=== PATIENT | female | born 1945 | race Caucasian/White ===

== ENCOUNTER 2021-03-23 13:32 | Inpatient (IN) | payer MEDICARE ==
--- NOTE | 2021-03-23 14:45 | ED ---
Recheck HPI - General Source: patient, RN notes reviewed Mode of arrival: EMS Limitations: no limitations <Felipe Dawkins - Last Filed: 03/23/21 14:25> <Batool Gaspar - Last Filed: 04/07/21 13:26> - General Chief Complaint: Recheck/Abnormal Lab/Rx Stated Complaint: AICD fired Time Seen by Provider: 03/23/21 14:19 - History of Present Illness Initial Comments: Patient is a 75-year-old female presenting to the ED for defibrillator discharge. Patient was sitting when defibrillator discharge without warning. Patient reports to figure discharge for several times just before 1:00 today. She denies feeling any chest pain shortness of breath dizziness or general discomfort before incident. He should states that pacemaker was placed 7 years prior and is followed by Dr. Jaquez currently. Patient states that pacemaker didn't feel there were placed because of prior DE. Patient has history of stent placement, CAD. Patient states that has limited heart function at this time last echo showing 20% EF. (Felipe Dawkins) - Related Data Home Medications Medication Instructions Recorded Confirmed Allopurinol [Zyloprim] 100 mg PO DAILY 03/23/21 03/23/21 Aspirin EC [Ecotrin Low Dose] 81 mg PO DAILY 03/23/21 03/23/21 Atorvastatin [Lipitor] 80 mg PO HS 03/23/21 03/23/21 HYDROcodone/APAP 5-325MG [[place] 1 tab PO Q4HR PRN 03/23/21 03/23/21 5-325] Losartan Potassium [Cozaar] 25 mg PO HS 03/23/21 03/23/21 Mexiletine [Mexitil] 150 mg PO BID 03/23/21 03/23/21 Omeprazole 40 mg PO DAILY 03/23/21 03/23/21 Ondansetron Odt [Zofran ODT] 4 mg PO Q8H PRN 03/23/21 03/23/21 Spironolactone [Aldactone] 25 mg PO DAILY 03/23/21 03/23/21 oxyCODONE HCL [oxyCODONE HCL (IR)] 10 mg PO Q6H 03/23/21 03/23/21 Previous Rx's Medication Instructions Recorded Metoprolol Succinate (ER) [Toprol 100 mg PO DAILY 30 Days #30 tablet 03/25/21 XL] Metoprolol Succinate [Toprol XL] 100 mg PO DAILY 30 Days #30 tab 03/25/21 Allergies Allergy/AdvReac Type Severity Reaction Status Date / Time No Known Allergies Allergy Verified 03/23/21 16:08 Review of Systems ROS Other: All systems not noted in ROS Statement are negative. <SandrakarynFelipe Sylvester - Last Filed: 03/23/21 14:25> ROS Other: All systems not noted in ROS Statement are negative. <Batool Gaspar - Last Filed: 04/07/21 13:26> ROS Statement: Those systems with pertinent positive or pertinent negative responses have been documented in the HPI. Past Medical History Past Medical History: Hyperlipidemia, Myocardial Infarction ([place]) History of Any Multi-Drug Resistant Organisms: None Reported Past Surgical History: Pacemaker Additional Past Surgical History / Comment(s): pacemaker/ defibrillator Past Psychological History: No Psychological Hx Reported Smoking Status: Never smoker Past Alcohol Use History: Daily Past Drug Use History: None Reported <Felipe Dawkins Nga - Last Filed: 03/23/21 14:25> General Exam Limitations: no limitations <JuanchoFelipe Sylvester - Last Filed: 03/23/21 14:25> General appearance: alert, in no apparent distress Head exam: Present: atraumatic, normocephalic, normal inspection Eye exam: Present: normal appearance, PERRL, EOMI. Absent: scleral icterus, conjunctival injection, periorbital swelling ENT exam: Present: normal exam, mucous membranes moist Neck exam: Present: normal inspection. Absent: tenderness, meningismus, lymphadenopathy Respiratory exam: Present: normal lung sounds bilaterally. Absent: respiratory distress, wheezes, rales, rhonchi, stridor Cardiovascular Exam: Present: regular rate, normal rhythm, normal heart sounds. Absent: systolic murmur, diastolic murmur, rubs, gallop, clicks GI/Abdominal exam: Present: soft, normal bowel sounds. Absent: distended, tenderness, guarding, rebound, rigid Extremities exam: Present: normal inspection, full ROM, normal capillary refill. Absent: tenderness, pedal edema, joint swelling, calf tenderness Back exam: Present: normal inspection Neurological exam: Present: alert, oriented X3, CN II-XII intact Psychiatric exam: Present: normal affect, normal mood Skin exam: Present: warm, dry, intact, normal color. Absent: rash <Batool Gaspar - Last Filed: 04/07/21 13:26> Course Vital Signs 03/23/21 03/23/21 03/23/21 13:53 15:25 16:14 Temperature 98.4 F Pulse Rate 98 90 106 H Respiratory 16 18 16 Rate Blood Pressure 138/93 129/89 136/86 O2 Sat by Pulse 94 L 95 95 Oximetry 03/23/21 03/23/21 03/23/21 17:17 20:27 21:30 Temperature 98.4 F Pulse Rate 94 87 82 Respiratory 18 16 18 Rate Blood Pressure 142/84 115/72 112/57 O2 Sat by Pulse 95 96 92 L Oximetry 03/24/21 03:00 Temperature 97.7 F Pulse Rate 73 Respiratory 16 Rate Blood Pressure 126/79 O2 Sat by Pulse 98 Oximetry Medical Decision Making - Lab Data Result diagrams: 03/24/21 08:16 03/24/21 08:16 <Batool Gaspar - Last Filed: 04/07/21 13:26> - Medical Decision Making Patient was signed out to me by Felipe. Patient presents emergency department after her defibrillator went off on her 4 times. Reviewed the patient's laboratory studies. Magnesium is low at 1.6. I did give the patient 1 g. Chest x-ray demonstrates no acute process. Patient's device is still to be interrogated. I went over the patient's medication list with her. She states she's been taking her Mexiletine twice daily. Medication is prescribed as 3 times daily so likely the patient has been taking the medication inappropriately. I did give her her dose of her Lopressor and mexiletine at this time as she also admits that she missed her morning medications before she attended confucianism. I recommended admitting the patient's hospital for cardiology consultation. Patient will be admitted to [facility] physicians. She remained in stable condition awaiting a bed on the floor (Batool Gaspar) - Lab Data Lab Results 03/23/21 03/23/21 03/23/21 Range/Units 14:52 14:52 14:52 WBC 9.8 (3.8-10.6) k/uL RBC 3.98 (3.80-5.40) m/uL Hgb 13.6 (11.4-16.0) gm/dL Hct 39.3 (34.0-46.0) % MCV 98.6 (80.0-100.0) fL MCH 34.2 (25.0-35.0) pg MCHC 34.7 (31.0-37.0) g/dL RDW 13.6 (11.5-15.5) % Plt Count 315 (150-450) k/uL MPV 8.3 Neutrophils % 71 % Lymphocytes % 16 % Monocytes % 6 % Eosinophils % 3 % Basophils % 0 % Neutrophils # 6.9 (1.3-7.7) k/uL Lymphocytes # 1.6 (1.0-4.8) k/uL Monocytes # 0.6 (0-1.0) k/uL Eosinophils # 0.3 (0-0.7) k/uL Basophils # 0.0 (0-0.2) k/uL PT 10.1 (9.0-12.0) sec INR 0.9 (<1.2) APTT 20.8 L (22.0-30.0) sec Sodium 136 L (137-145) mmol/L Potassium 3.6 (3.5-5.1) mmol/L Chloride 103 (98-107) mmol/L Carbon Dioxide 18 L (22-30) mmol/L Anion Gap 15 mmol/L BUN 10 (7-17) mg/dL Creatinine 0.65 (0.52-1.04) mg/dL Est GFR (CKD-EPI)AfAm >90 (>60 ml/min/1.73 sqM) Est GFR (CKD-EPI)NonAf 86 (>60 ml/min/1.73 sqM) Glucose 92 (74-99) mg/dL Calcium 10.4 H (8.4-10.2) mg/dL Magnesium 1.6 (1.6-2.3) mg/dL Total Bilirubin 0.4 (0.2-1.3) mg/dL AST 42 H (14-36) U/L ALT 28 (4-34) U/L Alkaline Phosphatase 191 H (38-126) U/L Troponin I (0.000-0.034) ng/mL Total Protein 7.3 (6.3-8.2) g/dL Albumin 4.1 (3.5-5.0) g/dL 10/23/21 Range/Units 14:52 WBC (3.8-10.6) k/uL RBC (3.80-5.40) m/uL Hgb (11.4-16.0) gm/dL Hct (34.0-46.0) % MCV (80.0-100.0) fL MCH (25.0-35.0) pg MCHC (31.0-37.0) g/dL RDW (11.5-15.5) % Plt Count (150-450) k/uL MPV Neutrophils % % Lymphocytes % % Monocytes % % Eosinophils % % Basophils % % Neutrophils # (1.3-7.7) k/uL Lymphocytes # (1.0-4.8) k/uL Monocytes # (0-1.0) k/uL Eosinophils # (0-0.7) k/uL Basophils # (0-0.2) k/uL PT (9.0-12.0) sec INR (<1.2) APTT (22.0-30.0) sec Sodium (137-145) mmol/L Potassium (3.5-5.1) mmol/L Chloride (98-107) mmol/L Carbon Dioxide (22-30) mmol/L Anion Gap mmol/L BUN (7-17) mg/dL Creatinine (0.52-1.04) mg/dL Est GFR (CKD-EPI)AfAm (>60 ml/min/1.73 sqM) Est GFR (CKD-EPI)NonAf (>60 ml/min/1.73 sqM) Glucose (74-99) mg/dL Calcium (8.4-10.2) mg/dL Magnesium (1.6-2.3) mg/dL Total Bilirubin (0.2-1.3) mg/dL AST (14-36) U/L ALT (4-34) U/L Alkaline Phosphatase (38-126) U/L Troponin I 0.022 (0.000-0.034) ng/mL Total Protein (6.3-8.2) g/dL Albumin (3.5-5.0) g/dL - EKG Data EKG Comments: EKG demonstrates normal sinus rhythm with a ventricular rate 97. IN interval 198. QRS 122. QTC of 439. No acute ST segment elevations or depressions concerning for ischemic changes (Batool Gaspar) Disposition <Felipe Dawkins - Last Filed: 03/23/21 14:25> Is patient prescribed a controlled substance at d/c from ED?: No Decision to Admit Reason: Admit from EC Decision Date: 03/23/21 Decision Time: 16:37 <Batool Gaspar - Last Filed: 04/07/21 13:26> Clinical Impression: Defibrillator discharge, Hypomagnesemia Disposition: ADMITTED IP TO THIS HOSP Condition: Stable
[2021-03-23 15:00] LABS: Basophils % (A) 0 %; Eosinophils # (A) 0.3 k/uL (0-0.7); Eosinophils % (A) 3 %; HCT 39.3 % (34.0-46.0); HGB 13.6 gm/dL (11.4-16.0); Lymphocytes # (A) 1.6 k/uL (1.0-4.8); Lymphocytes % (A) 16 %; MCH 34.2 pg (25.0-35.0); MCHC 34.7 g/dL (31.0-37.0); MCV 98.6 fL (80.0-100.0); Mean Platelet Volume 8.3; Monocytes # (A) 0.6 k/uL (0-1.0); Monocytes % (A) 6 %; Neutrophils # (A) 6.9 k/uL (1.3-7.7); Neutrophils % (A) 71 %; Platelet Count 315 k/uL (150-450); RBC 3.98 m/uL (3.80-5.40); RDW 13.6 % (11.5-15.5); WBC 9.8 k/uL (3.8-10.6)
[2021-03-23 15:15] LABS: INR 0.9 (<1.2); Partial Thromboplastin Time 20.8 sec (22.0-30.0); Prothrombin Time 10.1 sec (9.0-12.0)
[2021-03-23 15:29] LABS: ALT 28 U/L (4-34); AST 42 U/L (14-36); African American GFR (CKD) >90 (>60 ml/min/1.73 sqM); Albumin 4.1 g/dL (3.5-5.0); Alkaline Phosphatase 191 U/L (38-126); Anion Gap 15 mmol/L; Blood Urea Nitrogen 10 mg/dL (7-17); Calcium 10.4 mg/dL (8.4-10.2); Carbon Dioxide 18 mmol/L (22-30); Chloride 103 mmol/L (98-107); Glucose 92 mg/dL (74-99); Magnesium 1.6 mg/dL (1.6-2.3); Non-African American GFR(CKD) 86 (>60 ml/min/1.73 sqM); Potassium 3.6 mmol/L (3.5-5.1); Sodium 136 mmol/L (137-145); Total Bilirubin 0.4 mg/dL (0.2-1.3); Total Protein 7.3 g/dL (6.3-8.2)
--- NOTE | 2021-03-23 16:19 | XR ---
EXAMINATION TYPE: XR chest 2V DATE OF EXAM: 03/23/2021 COMPARISON: Chest radiograph 2013 HISTORY: Defibrillator, palpitations TECHNIQUE: Frontal and lateral views of the chest are obtained. FINDINGS: Dual-lead pacemaker/ICD power pack overlying the left chest with leads overlying the right atrium and right ventricle. Intact sternotomy wires. There is no focal air space opacity, pleural eff usion, or pneumothorax seen. The cardiac silhouette size is within normal limits. The osseous stru ctures are intact. IMPRESSION: No acute cardiopulmonary process.
[2021-03-23] MEDS ORDERED: MAGNESIUM SULFATE-D5W PMX 1 GM in DEXTROSE/WATER 1 100ML.BAG IVPB ONE (16:21)
[2021-03-23] MEDS ORDERED: ONDANSETRON ODT 4 MG TAB PO PRN (16:21)
[2021-03-23] MEDS ORDERED: NALOXONE 0.4 MG/ML 1 ML VIAL IV PRN (16:37)
[2021-03-23] MEDS: MEXILETINE 150 MG CAP PO SCH (17:06)
[2021-03-23] MEDS: METOPROLOL TARTRATE 50 MG TAB PO SCH (17:14)
[2021-03-23] MEDS: LOSARTAN 25 MG TAB PO SCH ×2 (21:27→21:28)
[2021-03-23] MEDS: HYDROcodone/APAP 5-325MG 1 EACH TAB PO PRN (21:27)
[2021-03-23] MEDS: ATORVASTATIN 80 MG TAB PO SCH (21:28)
--- NOTE | 2021-03-23 23:59 | P.HPIM ---
History of Present Illness H&P Date: 03/23/21 Chief Complaint: Defibrillator firing 75-year-old female with history of coronary artery disease status post stents, ischemic cardiac myopathy left ventricular ejection fraction 20% status post AICD Patient was at her baseline status of health she was at [employer] today when s uddenly just before mass event she felt shocking in her chest and realizes that her ICD has fired, was so sudden that brought her down to her knees she denies passing out, she denies any dizziness, lightheadedness, palpitations, chest pain, trouble breathing, dizziness, nausea, or vomiting before or after the event. However this kept happening every few minutes and repeated the same scenario for about 4 times when her son decided that he would call EMS and taken to the hospital for evaluation this has never happened before she denies any changes in her overall health she does admit that she doesn't take her medications as prescribed. But otherwise she feels well and denies any other symptoms she denies any fevers chills coughing denies any abdominal pain changes in her bowel or urinary habits. Denies any sick contacts or recent travel Patient does recall history of coronary artery disease resulting in open heart surgery she doesn't know the details of that surgery would that's when she got her defibrillator. However at that time she wasn't experiencing any typical symptoms of heart attack and when she was told that she had a heart attack it was a surprise to her Blood work in the ED overall was unremarkable except for slightly low magnesium. Chest x-ray no acute pathology, troponins negative Device was interrogated and showed ventricular tachycardia with maximum rate of 2 88 bpm, with longest event lasting 13 seconds Patient also had sustained a fall about 10 days ago then diagnosed with fracture in her wrist requiring splinting by orthopedic patient doesn't exactly know the details of what was done or what kind of injury she sustained at the time. Currently wrapped in surgical dressing patient denies any tingling or numbness in her fingertips Review of Systems Pertinent positives as noted in HPI. All other systems were reviewed and are negative Past Medical History Past Medical History: Hyperlipidemia, Myocardial Infarction ([place]) History of Any Multi-Drug Resistant Organisms: None Reported Past Surgical History: Pacemaker Additional Past Surgical History / Comment(s): pacemaker/ defibrillator Past Psychological History: No Psychological Hx Reported Smoking Status: Never smoker Past Alcohol Use History: Daily Past Drug Use History: None Reported Medications and Allergies Home Medications Medication Instructions Recorded Confirmed Type Allopurinol [Zyloprim] 100 mg PO DAILY 03/23/21 03/23/21 History Aspirin EC [Ecotrin Low Dose] 81 mg PO DAILY 03/23/21 03/23/21 History Atorvastatin [Lipitor] 80 mg PO HS 03/23/21 03/23/21 History HYDROcodone/APAP 5-325MG [[place] 1 tab PO Q4HR PRN 03/23/21 03/23/21 History 5-325] Losartan Potassium [Cozaar] 25 mg PO HS 03/23/21 03/23/21 History Metoprolol Tartrate [Lopressor] 50 mg PO BID 03/23/21 03/23/21 History Mexiletine [Mexitil] 150 mg PO BID 03/23/21 03/23/21 History Omeprazole 40 mg PO DAILY 03/23/21 03/23/21 History Ondansetron Odt [Zofran Odt] 4 mg PO Q8H PRN 03/23/21 03/23/21 History Spironolactone [Aldactone] 25 mg PO DAILY 03/23/21 03/23/21 History oxyCODONE HCL [oxyCODONE HCL (IR)] 10 mg PO Q6H 03/23/21 03/23/21 History Allergies Allergy/AdvReac Type Severity Reaction Status Date / Time No Known Allergies Allergy Verified 03/23/21 16:08 Physical Exam Vitals: Vital Signs Temp Pulse Resp BP Pulse Ox 03/23/21 21:30 82 18 112/57 92 L 03/23/21 20:27 98.4 F 87 16 115/72 96 03/23/21 17:17 94 18 142/84 95 03/23/21 16:14 106 H 16 136/86 95 03/23/21 15:25 90 18 129/89 95 03/23/21 13:53 98.4 F 98 16 138/93 94 L Intake and Output 03/23/21 03/23/21 03/24/21 14:59 22:59 06:59 Other: Weight 62.596 kg Constitutional: No acute distress, conversant, pleasant Eyes: Anicteric sclerae, moist conjunctiva, Pupils equal round reactive to light ENMT: NC/AT Oropharynx clear, no erythema, or exudates Neck: Supple, FROM, no masses, or JVD No carotid bruits No thyromegaly Lungs: Clear to auscultation Clear to percussion Normal respiratory effort, no accessory muscle use Cardiovascular: Heart regular in rate and rhythm, systolic murmurs, no gallops, or rubs No peripheral edema Abdominal: Soft Nontender, no guarding, rebound or rigidity Abdomen moving with respiration Normoactive bowel sounds No hepatomegaly, No splenomegaly No palpable mass No abdominal wall hernia noted Skin: Normal temperature, tone, texture, turgor No induration No subcutaneous nodules No rash, lesions No ulcers Extremities: Surgical dressing and Jaiden wrap wrapping over the left upper extremity covering the left hand and forearm. Full range of motion of the fingers capillary refill is immediate No digital cyanosis No clubbing Pedal pulses intact and symmetrical Radial pulses intact and symmetrical No calf tenderness Psychiatric: Alert and oriented to person, place and time Appropriate affect fair judgement Neuro Muscles Strength 4/5 in all 4 extremities , limited exam over the le ft hand due to surgical dressing Sensation to light touch grossly present throughout Cranial nerves II-XII grossly intact No focal sensory deficits Lymphatics: no palpable cervical or supraclavicular , or inguinal lymph nodes Results CBC & Chem 7: 03/23/21 14:52 03/23/21 14:52 Labs: Abnormal Lab Results - Last 24 Hours (Table) 03/23/21 03/23/21 03/23/21 Range/Units 14:52 14:52 20:32 APTT 20.8 L (22.0-30.0) sec Sodium 136 L (137-145) mmol/L Carbon Dioxide 18 L (22-30) mmol/L Calcium 10.4 H (8.4-10.2) mg/dL AST 42 H (14-36) U/L Alkaline Phosphatase 191 H (38-126) U/L Troponin I 0.123 H* (0.000-0.034) ng/mL Assessment and Plan Assessment: Ventricular tachycardia status post firing of ICD device Ischemic cardiomyopathy with left ventricular ejection fraction 20% status post AICD History of CAD status post stents Follow-up electrolytes replace as needed Resume home beta ricardo and mexiletine Cardiac monitoring Trend troponins Cardiology consult Recent fall with fracture in the left hand Patient does not recall exact injury Currently in surgical dressing capillary refill is immediate, denies any tingling or numbness in the fingertips Check x-ray of the left hand Patient is full code DVT prophylaxis heparin subcu 3 times a day Anticipated length of stay less than 2 midnights Anticipated discharge home
--- NOTE | 2021-03-24 00:56 | XR ---
EXAMINATION TYPE: XR hand limited LT DATE OF EXAM: 03/24/2021 COMPARISON: NONE HISTORY: Hand pain. Fall. TECHNIQUE: 2 views FINDINGS: There is plate with screws fixing the distal radius. There is a probable fracture of the di stal ulna with comminution. No significant displacement. Detail limited by the cast. There is narrowi ng at the first carpometacarpal joint space. The carpal bones are intact. Metacarpals are intact. IMPRESSION: There are plate and screws fixing distal radius fracture. Distal ulna fracture. No signif icant displacement. Comparison made with initial exam.
[2021-03-24] MEDS: METOPROLOL TARTRATE 50 MG TAB PO SCH ×2 (03:05→10:06)
[2021-03-24] MEDS: MEXILETINE 150 MG CAP PO SCH ×4 (03:06→23:08)
[2021-03-24 09:06] LABS: Basophils % (A) 1 %; Eosinophils # (A) 0.3 k/uL (0-0.7); Eosinophils % (A) 3 %; HCT 39.6 % (34.0-46.0); HGB 12.9 gm/dL (11.4-16.0); Lymphocytes # (A) 1.7 k/uL (1.0-4.8); Lymphocytes % (A) 19 %; MCH 32.9 pg (25.0-35.0); MCHC 32.5 g/dL (31.0-37.0); MCV 101.2 fL (80.0-100.0); Macrocytosis Slight; Monocytes # (A) 0.4 k/uL (0-1.0); Monocytes % (A) 5 %; Neutrophils # (A) 6.2 k/uL (1.3-7.7); Neutrophils % (A) 70 %; Platelet Count 326 k/uL (150-450); RBC 3.91 m/uL (3.80-5.40); RDW 13.1 % (11.5-15.5); WBC 8.9 k/uL (3.8-10.6)
[2021-03-24 09:17] LABS: African American GFR (CKD) >90 (>60 ml/min/1.73 sqM); Anion Gap 10 mmol/L; Blood Urea Nitrogen 9 mg/dL (7-17); Calcium 10.5 mg/dL (8.4-10.2); Carbon Dioxide 25 mmol/L (22-30); Chloride 101 mmol/L (98-107); Glucose 119 mg/dL (74-99); Non-African American GFR(CKD) 88 (>60 ml/min/1.73 sqM); Potassium 4.1 mmol/L (3.5-5.1); Sodium 136 mmol/L (137-145)
[2021-03-24] MEDS: allopurinoL 100 MG TAB PO SCH (10:05)
[2021-03-24] MEDS: SPIRONOLACTONE 25 MG TAB PO SCH (10:06)
[2021-03-24] MEDS: ASPIRIN 81 MG PO SCH (10:06)
[2021-03-24] MEDS: PANTOPRAZOLE 40 MG TABLET PO SCH (10:06)
[2021-03-24] MEDS: HEPARIN SODIUM,PORCINE/PF 5,000 UNIT/0.5 ML SYRINGE SQ SCH ×3 (10:07→23:08)
--- NOTE | 2021-03-24 10:55 | P.CRDCN ---
History of Present Illness Consult date: 03/24/21 Chief complaint: ICD shocks History of present illness: The patient is a very pleasant 75-year-old female patient with a past medical history significant for coronary artery disease with a prior stenting, the details on that are unavailable at this point, ischemic cardiomyopathy, status post AICD, as well as hypertension and dyslipidemia presented to the emergency department after she received 4 ICD shocks. She was in her usual state of [facility] where she was attending the of her brother in the spiritism when suddenly she experienced four shocks from her device. The patient did not feel any symptoms of being dizzy or lightheaded around the episode and she did not have any feeling of heart racing or fluttering and no presyncope or syncope. No symptoms of chest pain or chest discomfort. No nausea or vomiting. EMS was called and the patient was transferred to the emergency department. She is under a lot of stress recently with the of her brother and beside that she has been dealing with a fracture in the left arm after she fell at home recently. When she fell she did not lose her consciousness and she stated that she slipped backward. The ICD was interrogated and revealed for appropriate shocks for VT. Please note that the patient was not taking her medications including the beta ricardo for the last few days before she was under a lot of stress. The EKG showed sinus rhythm. The troponin came in to be slightly abnormal. The rest of her blood work came in to be unremarkable. Past Medical History Past Medical History: Hyperlipidemia, Myocardial Infarction ([place]) Last Myocardial Infarction Date:: 2004 History of Any Multi-Drug Resistant Organisms: None Reported Past Surgical History: Pacemaker Additional Past Surgical History / Comment(s): pacemaker/ defibrillator Past Anesthesia/Blood Transfusion Reactions: No Reported Reaction Type of Cardiac Device: Permanent Pacemaker, AICD Device Placement Date:: 2005 Past Psychological History: No Psychological Hx Reported Smoking Status: Never smoker Past Alcohol Use History: Daily Past Drug Use History: None Reported - Past Family History Father Family Medical History: Cancer Mother Additional Family Medical History / Comment(s): arthritis Medications and Allergies Home Medications Medication Instructions Recorded Confirmed Type Allopurinol [Zyloprim] 100 mg PO DAILY 03/23/21 03/23/21 History Aspirin EC [Ecotrin Low Dose] 81 mg PO DAILY 03/23/21 03/23/21 History Atorvastatin [Lipitor] 80 mg PO HS 03/23/21 03/23/21 History HYDROcodone/APAP 5-325MG [[place] 1 tab PO Q4HR PRN 03/23/21 03/23/21 History 5-325] Losartan Potassium [Cozaar] 25 mg PO HS 03/23/21 03/23/21 History Metoprolol Tartrate [Lopressor] 50 mg PO BID 03/23/21 03/23/21 History Mexiletine [Mexitil] 150 mg PO BID 03/23/21 03/23/21 History Omeprazole 40 mg PO DAILY 03/23/21 03/23/21 History Ondansetron Odt [Zofran Odt] 4 mg PO Q8H PRN 03/23/21 03/23/21 History Spironolactone [Aldactone] 25 mg PO DAILY 03/23/21 03/23/21 History oxyCODONE HCL [oxyCODONE HCL (IR)] 10 mg PO Q6H 03/23/21 03/23/21 History Allergies Allergy/AdvReac Type Severity Reaction Status Date / Time No Known Allergies Allergy Verified 03/23/21 16:08 Physical Exam Vitals: Vital Signs Temp Pulse Pulse Resp BP BP Pulse Ox 03/24/21 07:30 97.8 F 72 16 110/73 95 03/24/21 05:32 97.2 F L 75 16 134/60 97 03/24/21 05:25 97.4 F L 71 16 129/67 98 03/24/21 03:00 97.7 F 73 16 126/79 98 03/23/21 21:30 82 18 112/57 92 L 03/23/21 20:27 98.4 F 87 16 115/72 96 03/23/21 17:17 94 18 142/84 95 03/23/21 16:14 106 H 16 136/86 95 03/23/21 15:25 90 18 129/89 95 03/23/21 13:53 98.4 F 98 16 138/93 94 L Intake and Output 03/23/21 03/24/21 03/24/21 22:59 06:59 14:59 Intake Total 240 Balance 240 Intake: Oral 240 Other: # Voids 1 Weight 61.6 kg - Constitutional General appearance: no acute distress - Respiratory Respiratory: bilateral: CTA - Cardiovascular Rhythm: regular Heart sounds: normal: S1, S2 Abnormal Heart Sounds: systolic murmur Results 03/24/21 08:16 03/24/21 08:16 Cardiac Enzymes 03/23/21 03/23/21 03/23/21 Range/Units 14:52 14:52 20:32 AST 42 H (14-36) U/L Troponin I 0.022 0.123 H* (0.000-0.034) ng/mL 03/23/21 Range/Units 23:51 AST (14-36) U/L Troponin I 0.119 H* (0.000-0.034) ng/mL Coagulation 03/23/21 Range/Units 14:52 PT 10.1 (9.0-12.0) sec APTT 20.8 L (22.0-30.0) sec CBC 03/23/21 03/24/21 Range/Units 14:52 08:16 WBC 9.8 8.9 (3.8-10.6) k/uL RBC 3.98 3.91 (3.80-5.40) m/uL Hgb 13.6 12.9 (11.4-16.0) gm/dL Hct 39.3 39.6 (34.0-46.0) % Plt Count 315 326 (150-450) k/uL Comprehensive Metabolic Panel 03/23/21 03/24/21 Range/Units 14:52 08:16 Sodium 136 L 136 L (137-145) mmol/L Potassium 3.6 4.1 (3.5-5.1) mmol/L Chloride 103 101 (98-107) mmol/L Carbon Dioxide 18 L 25 (22-30) mmol/L BUN 10 9 (7-17) mg/dL Creatinine 0.65 0.60 (0.52-1.04) mg/dL Glucose 92 119 H (74-99) mg/dL Calcium 10.4 H 10.5 H (8.4-10.2) mg/dL AST 42 H (14-36) U/L ALT 28 (4-34) U/L Alkaline Phosphatase 191 H (38-126) U/L Total Protein 7.3 (6.3-8.2) g/dL Albumin 4.1 (3.5-5.0) g/dL Current Medications Generic Name Dose Route Start Last Admin Trade Name Freq PRN Reason Stop Dose Admin Hydrocodone Bitart/Acetaminophen 1 each 03/23/21 16:21 03/23/21 21:27 Hydrocodone/Apap 5-325mg 1 Each Tab PO 1 each Q4HR PRN Administration Pain Allopurinol 100 mg 03/24/21 09:00 03/24/21 10:05 Allopurinol 100 Mg Tab PO 100 mg DAILY LAUREN Administration Aspirin 81 mg 03/24/21 09:00 03/24/21 10:06 Aspirin 81 Mg PO 81 mg DAILY LAUREN Administration Atorvastatin Calcium 80 mg 03/23/21 21:00 03/23/21 21:28 Atorvastatin 80 Mg Tab PO 80 mg HS LAUREN Administration Heparin Sodium (Porcine) 5,000 unit 03/24/21 08:00 03/24/21 10:07 Heparin Sodium,Porcine/Pf 5,000 Unit/0.5 Ml Syringe SQ 5,000 unit Q8HR LAUREN Administration Losartan Potassium 25 mg 03/23/21 21:00 03/23/21 21:28 Losartan 25 Mg Tab PO 25 mg HS LAUREN Administration Mexiletine HCl 150 mg 03/23/21 16:30 03/24/21 10:06 Mexiletine 150 Mg Cap PO 150 mg Q8HR LAUREN Administration Naloxone HCl 0.2 mg 03/23/21 16:37 Naloxone 0.4 Mg/Ml 1 Ml Vial IV Q2M PRN Opioid Reversal Ondansetron HCl 4 mg 03/23/21 16:21 Ondansetron Odt 4 Mg Tab PO Q8H PRN Nausea Oxycodone HCl 10 mg 03/23/21 18:00 03/24/21 06:39 Oxycodone Hcl 5 Mg Tab PO 10 mg Q6HR LAUREN Administration Pantoprazole Sodium 40 mg 03/24/21 09:00 03/24/21 10:06 Pantoprazole 40 Mg Tablet PO 40 mg DAILY LAUREN Administration Spironolactone 25 mg 03/24/21 09:00 03/24/21 10:06 Spironolactone 25 Mg Tab PO 25 mg DAILY LAUREN Administration Intake and Output 03/23/21 03/24/21 03/24/21 22:59 06:59 14:59 Intake Total 240 Balance 240 Intake: Oral 240 Other: # Voids 1 Weight 61.6 kg 03/24/21 08:16 03/24/21 08:16 Assessment and Plan Assessment: Assessment #1 intermittent episodes of sustained ventricular tachycardia #2 appropriate ICD shocks secondary to ventricular tachycardia which is likely secondary to not taking the medication #3 noncompliance with medications #4 known severe ischemic cardiomyopathy #5 coronary artery disease with prior revascularization #6 multiple comorbid conditions Plan #1 the patient was restarted on the cardiomyopathy medication #2 DC metoprolol tartrate and start the patient on Toprol-XL #3 continue titrate the dose of beta ricardo as well as ANITA inhibitor as the blood pressure and heart rate allow #4 medical treatment for the mildly abnormal troponin which is likely secondary to VT and shocks #5 discharge home in the next 12-24 hours
[2021-03-24] MEDS ORDERED: METOPROLOL TARTRATE 50 MG TAB PO STA (11:10)
--- NOTE | 2021-03-24 14:20 | P.PN ---
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 She presented to the hospital on 03/23/21 with a chief complaint of firing of her AICD 4 events. Patient reports she was in amish at her brother's when suddenly she felt a shock to her chest throwing her backwards, patient states family member assisted her so she did not fall. Patient denies experiencing any headache, lightheadedness, dizziness, chest pain, palpitations, shortness of breath, dys pnea with exertion, or nausea preceding this event. Patient states she has been under significant stress over the past week due to her recent fall resulting in fracture of her left arm and the of her brother and has missed some of her medications. Patient states initially she was not going to go to the hospital for evaluation but reports she received an additional 3 shocks (totaling 4 alto gether) and her son insisted she be evaluated and called EMS to take her to the hospital. Troponins trended and slightly elevated at 0.022, 0.123, and 0.119. Magnesium slightly low at 1.6 and replaced. AICD device was interrogated revealing sustained runs of ventricular tachycardia with maximum rate of 288 bpm with longest run the lasting 13 seconds. Physical exam: Vital signs reviewed and stable. General: Nontoxic, no distress and appears stated age. Derm: Skin warm and dry, normal coloration for ethnicity. Head: Atraumatic, normocephalic and symmetric. Eyes: EOMs intact, no lid lag, and anicteric sclera Mouth: no lip lesions, mucus membranes moist Cardiovascular: regular rate and rhythm with normal S1S2, no murmur, positive posterior tibial pulses bilaterally, and cap refill < 2 seconds. Lungs: Respirations even, regular, and unlabored on room air. Lungs CTA bilaterally, no rhonchi, no rales, no wheezing, and no accessory muscle usage. Abdominal: soft, nontender to palpation, no guarding, no appreciable organomegaly Ext: ROM intact. No gross muscle atrophy, no edema, no contractures Neuro: Speech clear, face symmetrical and CN II-XII grossly intact with no noted focal neuro deficits Psych: Alert and oriented to person, place, time, and situation. Appropriate and pleasant affect. Assessment and plan of care: Sustained Ventricular tachycardia resulting in firing of AICD Elevated troponins Ischemic cardiomyopathy with left ventricular ejection fraction 20% status post AICD History of CAD status post stents -Troponins elevated 0.022, 0.123, and 0.119. -Continue to monitor electrolytes and replace any abnormalities as needed. -Continue Mexiletine -Continue telemetry monitoring -Cardiology following and discontinued metoprolol tartrate and started patient on metoprolol succinate XL Hypomagnesemia, resolved -We will continue to monitor closely with repeat a.m. labs and replace any electrolyte abnormalities as needed. Radius fracture of left hand obtained from fall 03/13/21 X-rays revealing plate and screws fixing distal radius and ulnar fracture, no significant displacement. Continue symptomatic care and pain management. CODE STATUS: full code DVT prophylaxis: heparin Discussed with: patient and RN Anticipated discharge date: Plan for continued telemetry monitoring overnight and likely discharge tomorrow morning. Anticipated discharge place: home A total of 45 minutes was spent on the care of this complex patient more than 50% of the time was spent in counseling and care coordination. Objective - Vital Signs Vital signs: Vital Signs Temp 97.8 F 03/24/21 07:30 Pulse 76 03/24/21 11:30 Resp 18 03/24/21 11:30 BP 108/57 03/24/21 11:30 Pulse Ox 97 03/24/21 11:30 Intake & Output 03/23/21 03/24/21 03/24/21 18:59 06:59 18:59 Intake Total 240 Balance 240 Weight 62.596 kg 61.6 kg Intake: Oral 240 Other: Voiding Method Toilet # Voids 1 - Labs CBC & Chem 7: 03/24/21 08:16 03/24/21 08:16 Labs: Abnormal Lab Results - Last 24 Hours (Table) 03/23/21 03/23/21 03/23/21 Range/Units 14:52 14:52 20:32 MCV (80.0-100.0) fL APTT 20.8 L (22.0-30.0) sec Sodium 136 L (137-145) mmol/L Carbon Dioxide 18 L (22-30) mmol/L Glucose (74-99) mg/dL Calcium 10.4 H (8.4-10.2) mg/dL AST 42 H (14-36) U/L Alkaline Phosphatase 191 H (38-126) U/L Troponin I 0.123 H* (0.000-0.034) ng/mL 03/23/21 03/24/21 03/24/21 Range/Units 23:51 08:16 08:16 MCV 101.2 H (80.0-100.0) fL APTT (22.0-30.0) sec Sodium 136 L (137-145) mmol/L Carbon Dioxide (22-30) mmol/L Glucose 119 H (74-99) mg/dL Calcium 10.5 H (8.4-10.2) mg/dL AST (14-36) U/L Alkaline Phosphatase (38-126) U/L Troponin I 0.119 H* (0.000-0.034) ng/mL
[2021-03-24 16:46] LABS: Glucose,Whole Blood 110 mg/dL (75-99)
[2021-03-24] MEDS: ATORVASTATIN 80 MG TAB PO SCH (20:02)
[2021-03-24] MEDS ORDERED: DOCUSATE 100 MG CAP PO PRN (22:01)
[2021-03-24 23:49] VITALS: RESP 18
[2021-03-25] MEDS ORDERED: METOPROLOL SUCCINATE (ER) 100 MG TAB.ER.24H PO SCH (09:00)
--- NOTE | 2021-03-25 09:03 | P.DS ---
Providers Date of admission: 03/23/21 16:39 Expected date of discharge: 03/25/21 Attending physician: Ric Saleh MD Consults: 03/23/21 16:38 Consult Physician Urgent Consulting Provider: [facility] Consult Reason/Comments: Defibrillator discharge Do you want consulting provider notified?: Yes Primary care physician: Marcio Bass [facility] Course: Discharge Diagnosis: Sustained Ventricular tachycardia resulting in firing of AICD Elevated troponins Ischemic cardiomyopathy with left ventricular ejection fraction 20% status post AICD History of CAD status post stents Hypomagnesemia, resolved Left Radius and ulnar fracture obtained from fall 03/13/21 Hospital Course: Patient is a 75-year-old female with history of coronary artery disease status post stents, 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 She presented to the hospital on 03/23/21 with a chief complaint of firing of her AICD 4 events. Patient reports she was in zoroastrianism at her brother's when suddenly she felt a shock to her chest throwing her backwards, patient states family member assisted her so she did not fall. Patient denies experiencing any headache, lightheadedness, dizziness, chest pain, palpitations, shortness of breath, dyspnea with exertion, or nausea preceding this event. Patient states she has been under significant stress over the past week due to her recent fall resulting in fracture of her left arm and the of her brother and has missed some of her medications. Patient states initially she was not going to go to the hospital for evaluation but reports she received an additional 3 shocks (totaling 4 altogether) and her son insisted she be evaluated and called EMS to take her to the hospital. Troponins trended and slightly elevated at 0.022, 0.123, and 0.119. Magnesium slightly low at 1.6 and replaced. AICD device was interrogated revealing sustained runs of ventricular tachycardia with maximum rate of 288 bpm with longest run the lasting 13 seconds. Patient was re started on metoprolol and magnesium was replaced. Patient remains on continuous telemetry monitoring throughout hospitalization with no further runs of V. tach. Cardiology following and discontinued metoprolol tartrate and started patient on metoprolol succinate XL to better promote medication compliance by only needing to take once daily instead of twice daily. 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 Patient to also follow up with orthopedic specialists as previously scheduled for follow-up of radius and ulnar fracture Physical exam: Patient seen and fully evaluated at the bedside this morning. She continues to have no complaints or concerns at this time. She denies experiencing headache, lightheadedness, dizziness, chest pain, palpitations, shortness of breath, dyspnea with exertion, or nausea. Patient is medically stable for discharge home at this time. Vital signs reviewed and stable. General: Nontoxic, no distress and appears stated age. Derm: Skin warm and dry, normal coloration for ethnicity. Head: Atraumatic, normocephalic and symmetric. Eyes: EOMs intact, no lid lag, and anicteric sclera Mouth: no lip lesions, mucus membranes moist Cardiovascular: regular rate and rhythm with normal S1S2, murmur, positive posterior tibial pulses bilaterally, and cap refill < 2 seconds. Lungs: Respirations even, regular, and unlabored on room air. Lungs CTA bilaterally, no rhonchi, no rales, no wheezing, and no accessory muscle usage. Abdominal: soft, nontender to palpation, no guarding, no appreciable organomegaly Ext: ROM intact. No gross muscle atrophy, no edema, no contractures Neuro: Speech clear, face symmetrical and CN II-XII grossly intact with no noted focal neuro deficits Psych: Alert and oriented to person, place, time, and situation. Appropriate and pleasant affect. A total of 45 minutes of time were spent preparing this complex discharge summary. Patient Condition at Discharge: Stable Plan - Discharge Summary Discharge Rx Participant: No New Discharge Prescriptions: New Metoprolol Succinate [Toprol XL] 100 mg PO DAILY 30 Days #30 tab Continue Omeprazole 40 mg PO DAILY Ondansetron Odt [Zofran ODT] 4 mg PO Q8H PRN PRN Reason: Nausea HYDROcodone/APAP 5-325MG [Cordell 5-325] 1 tab PO Q4HR PRN PRN Reason: Pain Aspirin EC [Ecotrin Low Dose] 81 mg PO DAILY oxyCODONE HCL [oxyCODONE HCL (IR)] 10 mg PO Q6H Spironolactone [Aldactone] 25 mg PO DAILY Losartan Potassium [Cozaar] 25 mg PO HS Mexiletine [Mexitil] 150 mg PO BID Atorvastatin [Lipitor] 80 mg PO HS Allopurinol [Zyloprim] 100 mg PO DAILY Discontinued Metoprolol Tartrate [Lopressor] 50 mg PO BID Discharge Medication List Allopurinol [Zyloprim] 100 mg PO DAILY 03/23/21 [History] Aspirin EC [Ecotrin Low Dose] 81 mg PO DAILY 03/23/21 [History] Atorvastatin [Lipitor] 80 mg PO HS 03/23/21 [History] HYDROcodone/APAP 5-325MG [Cordell 5-325] 1 tab PO Q4HR PRN 03/23/21 [History] Losartan Potassium [Cozaar] 25 mg PO HS 03/23/21 [History] Mexiletine [Mexitil] 150 mg PO BID 03/23/21 [History] Omeprazole 40 mg PO DAILY 03/23/21 [History] Ondansetron Odt [Zofran ODT] 4 mg PO Q8H PRN 03/23/21 [History] Spironolactone [Aldactone] 25 mg PO DAILY 03/23/21 [History] oxyCODONE HCL [oxyCODONE HCL (IR)] 10 mg PO Q6H 03/23/21 [History] Metoprolol Succinate [Toprol XL] 100 mg PO DAILY 30 Days #30 tab 03/25/21 [Rx] Follow up Appointment(s)/Referral(s): Curt Jaquez MD [Family Provider] - 1 Week Marcio Howard MD [Primary Care Provider] - 03/27/21 12:30 pm Patient Instructions/Handouts: Hypomagnesemia (DC), Implantable Cardioverter Defibrillator (DC) Activity/Diet/Wound Care/Special Instructions: Activity: As tolerated. Take breaks as needed. Diet: Heart healthy and carb consistent diet. Avoid salts, or foods with hidden salts such as canned or boxed foods and frozen dinners. Extra salt makes your heart work harder and traps the fluid in your body for longer. Special Instructions: Take all of your medications as directed and remember to keep all of your doctor's appointments and follow-up as needed. Thank you for allowing us to participate in your care, it was truly a pleasure having you for our patient!!! Discharge/Stand Alone Forms: Who Do I Call?, Help In The Home Discharge Disposition: HOME SELF-CARE
[2021-03-25] MEDS: PANTOPRAZOLE 40 MG TABLET PO SCH (10:07)
[2021-03-25] MEDS: HEPARIN SODIUM,PORCINE/PF 5,000 UNIT/0.5 ML SYRINGE SQ SCH (10:07)
[2021-03-25] MEDS: SPIRONOLACTONE 25 MG TAB PO SCH (10:08)
[2021-03-25] MEDS: ASPIRIN 81 MG PO SCH (10:08)
[2021-03-25] MEDS: allopurinoL 100 MG TAB PO SCH (10:08)
[2021-03-25 10:10] VITALS: BP 119/52; PULSE 79; TEMP 98.2
[2021-03-25] MEDS: MEXILETINE 150 MG CAP PO SCH (10:12)
--- NOTE | 2021-03-25 12:53 | P.PN ---
Subjective The patient is a very pleasant 75-year-old female patient with a past medical history significant for coronary artery disease with a prior stenting to LAD, ischemic cardiomyopathy, status post AICD, hypertension and dyslipidemia, recent fracture to her left arm due to mechanical fall. She follows in the office with Dr. Jaquez. She presented to the emergency department 03/23/21 after she received 4 ICD shocks. She was in her usual state of health where she was attending the of her brother in the tenriism when suddenly she experienced four shocks from her device. The patient did not feel any symptoms of being dizzy or lightheaded around the episode and she did not have any feeling of heart racing or fluttering and no presyncope or syncope. EMS was called and the patient was transferred to the emergency department. The ICD was interrogated and revealed for appropriate shocks for VT. Please note that the patient was not taking her medications including the beta ricardo for the last few days before she was under a lot of stress. Patient seen at bedside, no acute distress. She states she is feeling much better this morning, back to her normal baseline. She denies any symptoms of chest pain, shortness of breath, lightheadedness, dizziness. Blood pressure 119/52, are 39, afebrile, maintaining oxygen saturations on room air. Telemetry reviewed patient maintaining sinus mechanism. She's currently maintained on aspirin 1 mg daily, atorvastatin 80 mg nightly, losartan 25 mg daily, metoprolol succinate 100 mg daily, spironolactone 25 mg daily. GENERAL: Well-appearing, well-nourished and in no acute distress. NECK: Supple without JVD or thyromegaly. LUNGS: Breath sounds clear to auscultation bilaterally. Respiration equal and unlabored. No wheezes, rales or rhonchi. HEART: Regular rate and rhythm without murmurs, rubs or gallops. S1 and S2 heard. EXTREMITIES: Normal range of motion, no edema. No clubbing or cyanosis. Peripheral pulses intact. ASSESSMENT Intermittent episodes of sustained ventricular tachycardia Status post appropriate ICD shocks secondary to ventricular tachycardia which is likely secondary to not taking the medication Known ischemic cardiomyopathy s/p AICD Coronary artery disease status post prior stenting to the LAD History of Hypertension Dyslipidemia Recent fracture to her left arm s/p a mechanical fall, following outpatient with orthopedics PLAN Continue metoprolol succinate 100 mg daily and discontinue metoprolol tartrate Continue home cardiac medications From a cardiac perspective okay discharged home today and follow-up to Dr. Jaquez outpatient in the office Nurse Practitioner note has been reviewed, I agree with a documented findings and plan of care. Patient was seen and examined. Objective - Vital Signs Vital signs: Vital Signs Temp 98.2 F 03/25/21 08:00 Pulse 79 03/25/21 08:00 Resp 18 03/25/21 08:00 BP 119/52 03/25/21 08:00 Pulse Ox 96 03/25/21 08:00 Intake & Output 03/24/21 03/25/21 03/25/21 18:59 06:59 18:59 Intake Total 240 Balance 240 Weight 62.1 kg Intake: Oral 240 Other: Voiding Method Toilet Toilet # Voids 2 1 # Bowel Movements 2 - Labs CBC & Chem 7: 03/24/21 08:16 03/24/21 08:16 Labs: Abnormal Lab Results - Last 24 Hours (Table) 03/24/21 Range/Units 16:44 POC Glucose (mg/dL) 110 H (75-99) mg/dL
[2021-03-25] MEDS: HYDROcodone/APAP 5-325MG 1 EACH TAB PO PRN (16:27)
== END 2021-03-25 16:30 | disposition home or self-care (01) | DRG 310 ==
LOC: EC 13:32 → 3SCARD 16:39
PROVIDERS: ADMIT Student in an Organized Health Care Education/Training Program; ATTEND Student in an Organized Health Care Education/Training Program
PROC: 4A02X4Z Measurement of Cardiac Electrical Activity, External Approach (ICD-10-PCS; principal; 2021-03-23)
DX: I47.2 Ventricular tachycardia (principal); I25.10 Atherosclerotic heart disease of native coronary artery without angina pectoris; R79.89 Other specified abnormal findings of blood chemistry; I25.5 Ischemic cardiomyopathy; E78.5 Hyperlipidemia, unspecified; E83.42 Hypomagnesemia; I10 Essential (primary) hypertension; I25.2 Old myocardial infarction; Z20.822 Contact with and (suspected) exposure to COVID-19; Z79.82 Long term (current) use of aspirin; Z79.899 Other long term (current) drug therapy; Z91.14 Patient's other noncompliance with medication regimen; Z95.5 Presence of coronary angioplasty implant and graft; Z95.810 Presence of automatic (implantable) cardiac defibrillator
CPT/HCPCS: 36415; 71046; 80048; 80053; 83735; 84484; 85025; 85610; 85730; 87635; 93005; 96365; 96372; 99285

== ENCOUNTER 2022-10-01 20:14 | Inpatient (IN) | payer MEDICARE ==
[2022-10-01] MEDS ORDERED: ASPIRIN 81 MG PO STA (20:28)
[2022-10-01 20:44] LABS: Basophils % (A) 0 %; Eosinophils # (A) 0.1 k/uL (0-0.7); Eosinophils % (A) 1 %; HCT 40.2 % (34.0-46.0); HGB 12.9 gm/dL (11.4-16.0); Hypochromasia Slight; Lymphocytes # (A) 2.1 k/uL (1.0-4.8); Lymphocytes % (A) 17 %; MCV 96.9 fL (80.0-100.0); Mean Platelet Volume 9.3; Monocytes # (A) 0.5 k/uL (0-1.0); Monocytes % (A) 4 %; Neutrophils % (A) 74 %; Platelet Count 232 k/uL (150-450); RBC 4.15 m/uL (3.80-5.40); RDW 15.4 % (11.5-15.5); WBC 12.2 k/uL (3.8-10.6)
[2022-10-01 20:55] LABS: ALT 67 U/L (4-34); AST 55 U/L (14-36); African American GFR (CKD) >90 (>60 ml/min/1.73 sqM); Albumin 3.7 g/dL (3.5-5.0); Alkaline Phosphatase 233 U/L (38-126); Anion Gap 13 mmol/L; Blood Urea Nitrogen 16 mg/dL (7-17); Calcium 9.3 mg/dL (8.4-10.2); Carbon Dioxide 23 mmol/L (22-30); Chloride 98 mmol/L (98-107); Glucose 152 mg/dL (74-99); Magnesium 1.1 mg/dL (1.6-2.3); Non-African American GFR(CKD) 84 (>60 ml/min/1.73 sqM); Sodium 134 mmol/L (137-145); Total Bilirubin 1.7 mg/dL (0.2-1.3); Total Protein 6.5 g/dL (6.3-8.2)
[2022-10-01 21:00] LABS: INR 1.2 (<1.2); Prothrombin Time 12.7 sec (9.0-12.0)
[2022-10-01 21:01] LABS: Partial Thromboplastin Time 19.2 sec (22.0-30.0)
--- NOTE | 2022-10-01 21:10 | XR ---
EXAMINATION TYPE: XR chest 1V portable DATE OF EXAM: 10/01/2022 9:00 PM COMPARISON: Chest radiographs from 03/23/2021 TECHNIQUE: XR chest 1V portable Frontal view of the chest. CLINICAL INDICATION:Female, 77 years old with history of dysrhythmia; FINDINGS: Lungs/Pleura: No evidence of focal consolidation or pneumothorax. Blunting of the costophrenic angles is present. Pulmonary vascularity: Pulmonary vascular congestion. Heart/mediastinum: Cardiomediastinal silhouette is enlarged and stable. Two lead cardiac conduction d evice overlying the left hemithorax with lead tips projecting over the right ventricle and right atri um. Musculoskeletal: No acute osseous pathology. Midline sternotomy wires are noted. IMPRESSION: Cardiomegaly, pulmonary vascular congestion and bilateral pleural effusions. Correlate with BNP for c ongestive heart failure.
[2022-10-01] MEDS: MAGNESIUM SULFATE-D5W PMX 1 GM in DEXTROSE/WATER 1 100ML.BAG IVPB SCH ×2 (21:13→22:13)
[2022-10-01] MEDS ORDERED: FUROSEMIDE 10 MG/ML 4 ML VIAL IV STA (22:08)
--- NOTE | 2022-10-01 22:30 | ED ---
General Adult HPI - General Chief complaint: Arrhythmia/Palpitations Stated complaint: Arrythmia, Shortness of Breath Time Seen by Provider: 10/01/22 20:20 Source: EMS Mode of arrival: EMS - History of Present Illness Initial comments: 77-year-old female past most history of ischemic cardiomyopathy, hypertension with ICD and pacemaker who presents to the emergency department stating that her device went off on her 4 times. States that she was at home when she was shocked 4 times by her defibrillator. She was not having any chest pain or shortness of breath previous to this. She has been considerably stress this week and eating less. She reports that she has been taking all of her medications as directed. Patient reports to one previous episode of similar a year and a half ago. She follows with Dr. Jaquez. Patient arrives to the hospital and states that she feels relatively asymptomatic at this time, just nervous that her device is given go off again. Denies any recent medication changes. No nausea or vomiting. She does admit to some increased swelling in her lower extremity. Patient does have chronic respiratory insufficiency wears 2 L of oxygen. States that as of recently her shortness of breath has been increased. Denies fevers, chills or cough. No other alleviating, precipitating or modifying factors - Related Data Home Medications Medication Instructions Recorded Confirmed Aspirin EC [Ecotrin Low Dose] 81 mg PO DAILY 03/23/21 10/01/22 Atorvastatin [Lipitor] 80 mg PO HS 03/23/21 10/01/22 Losartan Potassium [Cozaar] 25 mg PO HS 03/23/21 10/01/22 Mexiletine [Mexitil] 150 mg PO TID 03/23/21 10/01/22 Omeprazole 40 mg PO DAILY 03/23/21 10/01/22 Spironolactone [Aldactone] 25 mg PO DAILY 03/23/21 10/01/22 allopurinoL [Zyloprim] 100 mg PO DAILY 03/23/21 10/01/22 oxyCODONE HCL [oxyCODONE HCL (IR)] 10 mg PO Q6H PRN 03/23/21 10/01/22 Ergocalciferol (Vitamin D2) 1,250 mcg PO Q7D 10/01/22 10/01/22 [Drisdol (50,000 Iu)] Furosemide [Lasix] 40 mg PO DAILY PRN 10/01/22 10/01/22 Previous Rx's Medication Instructions Recorded Metoprolol Succinate [Toprol XL] 100 mg PO DAILY 30 Days #30 tab 03/25/21 Allergies Allergy/AdvReac Type Severity Reaction Status Date / Time No Known Allergies Allergy Verified 10/01/22 20:22 Review of Systems ROS Statement: Those systems with pertinent positive or pertinent negative responses have been documented in the HPI. ROS Other: All systems not noted in ROS Statement are negative. Past Medical History Past Medical History: Hyperlipidemia, Myocardial Infarction ([place]) Last Myocardial Infarction Date:: 2004 History of Any Multi-Drug Resistant Organisms: None Reported Past Surgical History: Pacemaker Additional Past Surgical History / Comment(s): pacemaker/ defibrillator Past Anesthesia/Blood Transfusion Reactions: No Reported Reaction Type of Cardiac Device: Permanent Pacemaker, AICD Device Placement Date:: 2005 Past Psychological History: No Psychological Hx Reported Smoking Status: Never smoker Past Alcohol Use History: Daily Past Drug Use History: None Reported - Past Family History Father Family Medical History: Cancer Mother Additional Family Medical History / Comment(s): arthritis General Exam General appearance: alert, anxious Head exam: Present: atraumatic, normocephalic, normal inspection Eye exam: Present: normal appearance, PERRL, EOMI. Absent: scleral icterus, conjunctival injection, periorbital swelling ENT exam: Present: normal exam, mucous membranes moist Neck exam: Present: normal inspection. Absent: tenderness, meningismus, lymphad enopathy Respiratory exam: Present: normal lung sounds bilaterally. Absent: respiratory distress, wheezes, rales, rhonchi, stridor Cardiovascular Exam: Present: normal rhythm, tachycardia, normal heart sounds. Absent: systolic murmur, diastolic murmur, rubs, gallop, clicks GI/Abdominal exam: Present: soft, normal bowel sounds. Absent: distended, tenderness, guarding, rebound, rigid Extremities exam: Present: normal inspection, full ROM, normal capillary refill. Absent: tenderness, pedal edema, joint swelling, calf tenderness Back exam: Present: normal inspection Neurological exam: Present: alert, oriented X3, CN II-XII intact Psychiatric exam: Present: normal affect, normal mood Skin exam: Present: warm, dry, intact, normal color. Absent: rash Course Vital Signs 10/01/22 10/01/22 10/01/22 20:16 20:42 21:15 Temperature 97.8 F Pulse Rate 141 H 114 H Pulse Rate [ 141 H [employer] Gun [employer] ] Respiratory 28 H 24 Rate Blood Pressure 124/86 119/77 O2 Sat by Pulse 98 Oximetry 10/01/22 10/02/22 23:07 00:24 Temperature Pulse Rate 123 H 112 H Pulse Rate [ [employer] ] Respiratory 17 19 Rate Blood Pressure 126/89 123/87 O2 Sat by Pulse 93 L 99 Oximetry EKG Findings - EKG Comments: EKG Findings:: EKG done at 2016 demonstrates a tachycardic rhythm with a rate of 141. QRS 134. QTC of 391. There is a left bundle-branch block that does not meet sgarbossa criteria. Repeat EKG at 2118 demonstrates sinus tachycardia with a rate of 119. WA interval 183. QRS 134. QTC of 399. Continues to have a left bundle branch block. Negative for sgarbossa criteria. Medical Decision Making - Medical Decision Making Was pt. sent in by a medical professional or institution (, PA, MILITARY LOGISTICS SPECIALIST, urgent care, hospital, or [facility]...) When possible be specific @ -no Did you speak to anyone other than the patient for history (EMS, parent, family, police, friend...)? What history was obtained from this source @ -daughter Did you review nursing and triage notes (agree or disagree)? Why? @ -I reviewed and agree with nursing and triage notes Were old charts reviewed (outside hosp., previous admission, EMS record, old EKG, old radiological studies, urgent care reports/EKG's, [facility] records)? Report findings @ - old charts were reviewed Differential Diagnosis (chest pain, altered mental status, abdominal pain women, abdominal pain men, vaginal bleeding, weakness, fever, dyspnea, syncope, headache, dizziness, GI bleed, back pain, seizure, CVA, palpatations, mental h ealth, musculoskeletal)? @ -afib, aflutter, svt, vtach, vfib, inappropriate device firing EKG interpreted by me (3pts min.). @ -yes X-rays interpreted by me (1pt min.). @ -yes CT interpreted by me (1pt min.). @ -None done U/S interpreted by me (1pt. min.). @ -None done What testing was considered but not performed or refused? (CT, X-rays, U/S, labs)? Why? @ -none What meds were considered but not given or refused? Why? @ -amiodarone - dr garcia thinks melitine would be better for the patient Did you discuss the management of the patient with other professionals (professionals i.e. , PA, MILITARY LOGISTICS SPECIALIST, lab, RT, psych nurse, social media sr strategy manager, microbiology coordinator, teacher, chief financial officer, test case developer)? Give summary @ -yes, dr garcia to discuss which antiarrythmic to give to patient in ED. Spoke with Dr. Snowden for admission Was smoking cessation discussed for >3mins.? @ -No Was critical care preformed (if so, how long)? @ -yes, 40 minutes for management of sustain vtach Were there social determinants of health that impacted care today? How? (Homelessness, low income, unemployed, alcoholism, drug addiction, transportation, low edu. Level, literacy, decrease access to med. care, snf, rehab)? @ -No Was there de-escalation of care discussed even if they declined (Discuss DNR or withdrawal of care, Hospice)? DNR status @ -no What co-morbidities impacted this encounter? (DM, HTN, Smoking, COPD, CAD, Cancer, CVA, ARF, Chemo, Hep., AIDS, mental health diagnosis, sleep apnea, morbid obesity)? @ -ischemic cardiomyopathy, sustained vtach with icd Was patient admitted / discharged? Hospital course, mention meds given and route, prescriptions, significant lab abnormalities, going to OR and other pertinent info. @ -On arrival patient was placed into room 2. A thorough history and physical exam is performed. Patient is asymptomatic this time. Denies any chest pain. She is placed on continuous pulse ox and cardiac monitoring. IV is established and laboratory studies are conducted. Magnesium 1.1. This is replaced with 3 g of magnesium. BNP 4920. Chest x-ray demonstrates volume overload. Patient does have a tachycardic rate which sounds regular upon physical exam. This slow ly improves down to the 110s. Repeat EKG is performed which demonstrates that it is a sinus tachycardia. Her [place] [employer] devices interrogated which demonstrates the patient did go into sustained V. tach which was shocked 4. I did call and speak with Dr. Garcia. States that the patient may continue on her home antiarrhythmic mexiletine for tonight. She is admitted to [facility] [place] [facility] with a cardiology consult placed. Patient was agreeable to this plan and is awaiting a bed on the floor in stable condition Undiagnosed new problem with uncertain prognosis? @ -yes Drug Therapy requiring intensive monitoring for toxicity (Heparin, Nitro, Insulin, Cardizem)? @ -No Were any procedures done? @ none Diagnosis/symptom? @ acute icd firing, sustained vtach Acute, or Chronic, or Acute on Chronic? @ -acute Uncomplicated (without systemic symptoms) or Complicated (systemic symptoms)? @ -complicated Side effects of treatment? @ -No Exacerbation, Progression, or Severe Exacerbation? @ -No Poses a threat to life or bodily function? How? (Chest pain, USA, PA, pneumonia, PE, COPD, DKA, ARF, appy, cholecystitis, CVA, Diverticulitis, Homicidal, Suicidal, threat to staff... and all critical care pts) @ -yes - Lab Data Result diagrams: 10/05/22 09:45 10/05/22 05:13 Lab Results 10/01/22 10/01/22 10/01/22 Range/Units 20:31 20:31 20:31 WBC 12.2 H (3.8-10.6) k/uL RBC 4.15 (3.80-5.40) m/uL Hgb 12.9 (11.4-16.0) gm/dL Hct 40.2 (34.0-46.0) % MCV 96.9 (80.0-100.0) fL MCH 31.0 (25.0-35.0) pg MCHC 32.0 (31.0-37.0) g/dL RDW 15.4 (11.5-15.5) % Plt Count 232 (150-450) k/uL MPV 9.3 Neutrophils % 74 % Lymphocytes % 17 % Monocytes % 4 % Eosinophils % 1 % Basophils % 0 % Neutrophils # 9.0 H (1.3-7.7) k/uL Lymphocytes # 2.1 (1.0-4.8) k/uL Monocytes # 0.5 (0-1.0) k/uL Eosinophils # 0.1 (0-0.7) k/uL Basophils # 0.0 (0-0.2) k/uL Hypochromasia Slight PT 12.7 H (9.0-12.0) sec INR 1.2 H (<1.2) APTT 19.2 L (22.0-30.0) sec Sodium 134 L (137-145) mmol/L Potassium 4.0 (3.5-5.1) mmol/L Chloride 98 (98-107) mmol/L Carbon Dioxide 23 (22-30) mmol/L Anion Gap 13 mmol/L BUN 16 (7-17) mg/dL Creatinine 0.67 (0.52-1.04) mg/dL Est GFR (CKD-EPI)AfAm >90 (>60 ml/min/1.73 sqM) Est GFR (CKD-EPI)NonAf 84 (>60 ml/min/1.73 sqM) Glucose 152 H (74-99) mg/dL Calcium 9.3 (8.4-10.2) mg/dL Magnesium 1.1 L (1.6-2.3) mg/dL Total Bilirubin 1.7 H (0.2-1.3) mg/dL AST 55 H (14-36) U/L ALT 67 H (4-34) U/L Alkaline Phosphatase 233 H (38-126) U/L Troponin I (0.000-0.034) ng/mL NT-Pro-B Natriuret Pep pg/mL Total Protein 6.5 (6.3-8.2) g/dL Albumin 3.7 (3.5-5.0) g/dL TSH 2.870 (0.465-4.680) mIU/L 10/01/22 10/01/22 Range/Units 20:31 21:25 WBC (3.8-10.6) k/uL RBC (3.80-5.40) m/uL Hgb (11.4-16.0) gm/dL Hct (34.0-46.0) % MCV (80.0-100.0) fL MCH (25.0-35.0) pg MCHC (31.0-37.0) g/dL RDW (11.5-15.5) % Plt Count (150-450) k/uL MPV Neutrophils % % Lymphocytes % % Monocytes % % Eosinophils % % Basophils % % Neutrophils # (1.3-7.7) k/uL Lymphocytes # (1.0-4.8) k/uL Monocytes # (0-1.0) k/uL Eosinophils # (0-0.7) k/uL Basophils # (0-0.2) k/uL Hypochromasia PT (9.0-12.0) sec INR (<1.2) APTT (22.0-30.0) sec Sodium (137-145) mmol/L Potassium (3.5-5.1) mmol/L Chloride (98-107) mmol/L Carbon Dioxide (22-30) mmol/L Anion Gap mmol/L BUN (7-17) mg/dL Creatinine (0.52-1.04) mg/dL Est GFR (CKD-EPI)AfAm (>60 ml/min/1.73 sqM) Est GFR (CKD-EPI)NonAf (>60 ml/min/1.73 sqM) Glucose (74-99) mg/dL Calcium (8.4-10.2) mg/dL Magnesium (1.6-2.3) mg/dL Total Bilirubin (0.2-1.3) mg/dL AST (14-36) U/L ALT (4-34) U/L Alkaline Phosphatase (38-126) U/L Troponin I 0.026 (0.000-0.034) ng/mL NT-Pro-B Natriuret Pep 4920 pg/mL Total Protein (6.3-8.2) g/dL Albumin (3.5-5.0) g/dL TSH (0.465-4.680) mIU/L Disposition Clinical Impression: Defibrillator discharge, Hypomagnesemia, Sustained ventricular tachycardia, CHF exacerbation Disposition: ADMITTED IP TO THIS [facility] Condition: Good Is patient prescribed a controlled substance at d/c from ED?: No Time of Disposition: 22:41 Decision to Admit Reason: Admit from EC Decision Date: 10/01/22 Decision Time: 22:41
[2022-10-01] MEDS ORDERED: NALOXONE 0.4 MG/ML 1 ML VIAL IV PRN (22:41)
[2022-10-01] MEDS: LOSARTAN 25 MG TAB PO SCH (22:53)
[2022-10-01] MEDS: ATORVASTATIN 80 MG TAB PO SCH (22:53)
[2022-10-01] MEDS: MEXILETINE 150 MG CAP PO SCH (22:54)
[2022-10-02] MEDS: MAGNESIUM SULFATE-D5W PMX 1 GM in DEXTROSE/WATER 1 100ML.BAG IVPB SCH ×3 (00:07→21:47)
[2022-10-02 05:34] LABS: African American GFR (CKD) >90 (>60 ml/min/1.73 sqM); Anion Gap 11 mmol/L; Blood Urea Nitrogen 15 mg/dL (7-17); Calcium 9.5 mg/dL (8.4-10.2); Carbon Dioxide 29 mmol/L (22-30); Chloride 95 mmol/L (98-107); Glucose 104 mg/dL (74-99); Non-African American GFR(CKD) 88 (>60 ml/min/1.73 sqM); Potassium 3.5 mmol/L (3.5-5.1); Sodium 135 mmol/L (137-145)
[2022-10-02 05:45] LABS: Basophils % (A) 0 %; Eosinophils % (A) 1 %; HCT 48.3 % (34.0-46.0); HGB 14.9 gm/dL (11.4-16.0); Lymphocytes # (A) 1.1 k/uL (1.0-4.8); Lymphocytes % (A) 19 %; MCH 29.5 pg (25.0-35.0); MCHC 30.8 g/dL (31.0-37.0); MCV 95.6 fL (80.0-100.0); Mean Platelet Volume 9.1; Monocytes # (A) 0.3 k/uL (0-1.0); Monocytes % (A) 5 %; Neutrophils # (A) 4.3 k/uL (1.3-7.7); Neutrophils % (A) 72 %; Platelet Count 169 k/uL (150-450); RBC 5.05 m/uL (3.80-5.40); RDW 15.2 % (11.5-15.5)
--- NOTE | 2022-10-02 05:53 | P.HPIM ---
History of Present Illness H&P Date: 10/01/22 Chief Complaint: ICD firing 77-year-old female with past medical history of ICMP with LVEF <20% s/p ICD patient presented to the ED due to sudden episodes of ICD firing today , patient has not been feeling well for about a month now, she is having generalized weakness and easy fatigue , which got worse over the past week she is having poor po intake , repeated vomiting, and exertional dyspnea . today she started having ICD shock back to back . she denies chest pain , shortness of breath she claims to be compliant with her meds. She denies fevers, chills or cough. no recent changes in her meds. Review of Systems Pertinent positives as noted in HPI. All other systems were reviewed and are negative Past Medical History Past Medical History: Hyperlipidemia, Myocardial Infarction ([place]) Last Myocardial Infarction Date:: 2004 History of Any Multi-Drug Resistant Organisms: None Reported Past Surgical History: Pacemaker Additional Past Surgical History / Comment(s): pacemaker/ defibrillator Past Anesthesia/Blood Transfusion Reactions: No Reported Reaction Type of Cardiac Device: Permanent Pacemaker, AICD Device Placement Date:: 2005 Past Psychological History: No Psychological Hx Reported Smoking Status: Never smoker Past Alcohol Use History: Daily Past Drug Use History: None Reported - Past Family History Father Family Medical History: Cancer Mother Additional Family Medical History / Comment(s): arthritis Medications and Allergies Home Medications Medication Instructions Recorded Confirmed Type Aspirin EC [Ecotrin Low Dose] 81 mg PO DAILY 03/23/21 10/01/22 History Atorvastatin [Lipitor] 80 mg PO HS 03/23/21 10/01/22 History Losartan Potassium [Cozaar] 25 mg PO HS 03/23/21 10/01/22 History Mexiletine [Mexitil] 150 mg PO TID 03/23/21 10/01/22 History Omeprazole 40 mg PO DAILY 03/23/21 10/01/22 History Spironolactone [Aldactone] 25 mg PO DAILY 03/23/21 10/01/22 History allopurinoL [Zyloprim] 100 mg PO DAILY 03/23/21 10/01/22 History oxyCODONE HCL [oxyCODONE HCL (IR)] 10 mg PO Q6H PRN 03/23/21 10/01/22 History Metoprolol Succinate [Toprol XL] 100 mg PO DAILY 30 Days #30 tab 03/25/21 10/01/22 Rx Ergocalciferol (Vitamin D2) 1,250 mcg PO Q7D 10/01/22 10/01/22 History [Drisdol (50,000 Iu)] Furosemide [Lasix] 40 mg PO DAILY PRN 10/01/22 10/01/22 History Allergies Allergy/AdvReac Type Severity Reaction Status Date / Time No Known Allergies Allergy Verified 10/01/22 20:22 Physical Exam Vitals: Vital Signs Temp Pulse Pulse Resp BP Pulse Ox 10/01/22 21:15 114 H 24 119/77 10/01/22 20:42 141 H 10/01/22 20:16 97.8 F 141 H 28 H 124/86 98 Intake and Output 10/01/22 10/01/22 10/01/22 06:59 14:59 22:59 Other: Weight 58.967 kg Constitutional: No acute distress, conversant, pleasant Eyes: Anicteric sclerae, moist conjunctiva, Pupils equal round reactive to light ENMT: NC/AT Oropharynx clear, no erythema, or exudates Neck: Supple, no masses, or JVD No carotid bruits No thyromegaly Lungs: Clear to auscultation Clear to percussion Normal respiratory effort, no accessory muscle use Cardiovascular: Heart regular in rate and rhythm, No murmurs, gallops, or rubs No peripheral edema Abdominal: Soft No tenderness to deep palpation no guarding, rebound or rigidity Abdomen moving with respiration Normoactive bowel sounds No hepatomegaly, No splenomegaly Skin: Normal temperature, tone, texture, turgor Extremities: No digital cyanosis No clubbing Pedal pulses intact and symmetrical Radial pulses intact and symmetrical No calf tenderness Psychiatric: Alert and oriented to person, place and time Appropriate affect Neuro Muscles Strength 4/5 in all 4 extremities Sensation to light touch grossly present throughout Cranial nerves II-XII grossly intact Lymphatics: no palpable cervical or supraclavicular lymph nodes Results CBC & Chem 7: 10/01/22 20:31 10/01/22 20:31 Labs: Abnormal Lab Results - Last 24 Hours (Table) 10/01/22 10/01/22 10/01/22 Range/Units 20:31 20:31 20:31 WBC 12.2 H (3.8-10.6) k/uL Neutrophils # 9.0 H (1.3-7.7) k/uL PT 12.7 H (9.0-12.0) sec INR 1.2 H (<1.2) APTT 19.2 L (22.0-30.0) sec Sodium 134 L (137-145) mmol/L Glucose 152 H (74-99) mg/dL Magnesium 1.1 L (1.6-2.3) mg/dL Total Bilirubin 1.7 H (0.2-1.3) mg/dL AST 55 H (14-36) U/L ALT 67 H (4-34) U/L Alkaline Phosphatase 233 H (38-126) U/L Assessment and Plan Assessment: 77 year old female with ICMP LVEF <20% s/p ICD, presented for ICD firing , i discussed the case with ED doc, device interrogation showed VTACH with 4 episodes of shocking, I accepted the admission for cardiac workup with anticipated length of stay < 2 midnights vtach with ICD firing ICMP with LVEF <20% s/p ICD acute chf exacerbation plan cardiology consult environmental monitoring technician continue mexitil 150 mg TID continue ASA, statin continue losartan and metoprolol lasix 40 mg IVP bid hypomagnesemia replace IV , follow up levels chronic condition s hypertension , continue metoprolol and losartan full code DVT PPX lovenox 40 mg sc daily blood work showed WBC 12.2 , no evidence of acute infection hemoglobin of 12.9 unremarkable
[2022-10-02] MEDS ORDERED: HEPARIN SODIUM,PORCINE 2,500 UNIT in SODIUM CHLORIDE 0.9% 250 ML IRRIGATION PRN (07:00)
[2022-10-02] MEDS ORDERED: HEPARIN SODIUM,PORCINE 10,000 UNIT in SODIUM CHLORIDE 0.9% 1,000 ML IRRIGATION PRN (07:00)
[2022-10-02] MEDS ORDERED: PANTOPRAZOLE 40 MG TABLET PO SCH (07:30)
[2022-10-02] MEDS ORDERED: DEXTROSE 5% IN WATER 250 ML with AMIODARONE 300 MG IV ONE (07:33)
[2022-10-02] MEDS ORDERED: DEXTROSE 5% IN WATER 100 ML with AMIODARONE 150 MG IV ONE (07:50)
[2022-10-02] MEDS ORDERED: ALPRAZolam 0.5 MG TAB PO PRN (07:53)
[2022-10-02] MEDS ORDERED: ALPRAZolam 0.25 MG TAB PO PRN (07:53)
[2022-10-02] MEDS ORDERED: ASPIRIN 325 MG TAB PO STA (07:53)
[2022-10-02] MEDS ORDERED: NITROGLYCERIN SL TABS 0.4 MG TAB SUBLINGUAL PRN (07:53)
[2022-10-02] MEDS ORDERED: ATORVASTATIN 80 MG TAB PO STA (07:53)
[2022-10-02] MEDS ORDERED: HEPARIN SODIUM 1,000 UN/ML (10ML VL) IV PRN (07:55)
[2022-10-02] MEDS ORDERED: HEPARIN SODIUM 1,000 UN/ML (10ML VL) IV ONE (07:55)
[2022-10-02] MEDS ORDERED: SODIUM CHLORIDE 0.9% 1,000 ML in EMPTY BAG 1 BAG IV SCH (08:00)
[2022-10-02] MEDS ORDERED: AMIODARONE 360 MG in DEXTROSE 5% IN WATER 200 ML IV ONE ×2 (08:00)
[2022-10-02] MEDS: FUROSEMIDE 10 MG/ML 4 ML VIAL IV SCH ×2 (08:15→20:49)
[2022-10-02] MEDS: SPIRONOLACTONE 25 MG TAB PO SCH (08:15)
[2022-10-02] MEDS: allopurinoL 100 MG TAB PO SCH (08:16)
[2022-10-02] MEDS: MEXILETINE 150 MG CAP PO SCH ×3 (08:16→20:48)
[2022-10-02] MEDS: POTASSIUM CHLORIDE 10 MEQ in WATER FOR INJECTION 1 100ML.BAG IVPB SCH ×4 (08:17→12:21)
[2022-10-02] MEDS: HEPARIN SOD,PORK IN 0.45% NACL 25,000 UNIT in 0.45% NACL 1 250ML.BAG IV SCH (08:18)
[2022-10-02] MEDS ORDERED: METOPROLOL SUCCINATE (ER) 100 MG TAB.ER.24H PO SCH (09:00)
[2022-10-02 09:29] LABS: Basophils % (A) 0 %; Eosinophils # (A) 0.1 k/uL (0-0.7); Eosinophils % (A) 2 %; HCT 39.9 % (34.0-46.0); HGB 12.6 gm/dL (11.4-16.0); Hypochromasia Slight; Lymphocytes # (A) 1.6 k/uL (1.0-4.8); Lymphocytes % (A) 25 %; MCH 30.3 pg (25.0-35.0); MCHC 31.6 g/dL (31.0-37.0); Mean Platelet Volume 9.7; Monocytes # (A) 0.4 k/uL (0-1.0); Monocytes % (A) 6 %; Neutrophils % (A) 63 %; Platelet Count 202 k/uL (150-450); RBC 4.16 m/uL (3.80-5.40); RDW 15.3 % (11.5-15.5); WBC 6.4 k/uL (3.8-10.6)
[2022-10-02 09:30] LABS: INR 1.1 (<1.2); Partial Thromboplastin Time 22.3 sec (22.0-30.0); Prothrombin Time 11.5 sec (9.0-12.0)
--- NOTE | 2022-10-02 09:44 | P.CRDCN ---
History of Present Illness Consult date: 10/02/22 History of present illness: HISTORY OF PRESENT ILLNESS: This is a 77-year-old female with a past medical history significant for coronary artery disease, ischemic cardiomyopathy, AICD implantation, hypertension, and hyperlipidemia. Patient follows in the office with Dr. Jaquez. We have been asked to see the patient in consultation for defibrillator discharge. Patient examined at the bedside. Patient states she has been feeling unwell for the past 2 days. She reports having some nausea and vomiting at home. She denied having any chest pain or pressure. She denied any shortness of breath. She presented to the hospital after her defibrillator fired at home. Patients device was interrogated revealing episodes of ATP and defibrillation y esterday. Patient has a history of coronary artery disease and states many years ago she underwent PCI of the LAD in about a. She also reports a CHF. She states in the past she had a procedure performed to drain fluid and they knicked her heart and had to have surgery to control the bleeding. * EKG reveals sinus tachycardia. Left axis deviation. * Chest xray cardiomegaly, pulmonary vascular congestion and bilateral pleural effusions. * Laboratory data: WBC 6.4. Hemoglobin 12.6. Platelet count 202. Sodium 135. Potassium 3.5. BUN 15. Creatinine 0.59. Magnesium 1.1. Repeat 1.6. * Current home cardiac medications include the 640 mg daily as needed, Lipitor 80 mg at night, mexiletine 150 mg 3 times a day, Aldactone 25 mg daily, metoprolol succinate 100 mg daily * Most recent echocardiogram obtained in 2019 revealed ejection fraction 30%, mild concentric LVH, mild AR, moderate MR REVIEW OF SYSTEMS: At the time of my exam: CONSTITUTIONAL: Denies fever or chills. HEENT: Denies blurred vision, vision changes, or eye pain. Denies hemoptysis CARDIOVASCULAR: Denies chest pain. Denies orthopnea. Denies PND. Denies palpitations RESPIRATORY: Denies shortness of breath. GASTROINTESTINAL: Denies abdominal pain. Denies nausea or vomiting. HEMATOLOGIC: Denies bleeding disorders. GENITOURINARY: Denies any blood in urine. SKIN: Denies pruitis. Denies rash. PHYSICAL EXAM: VITAL SIGNS: Reviewed. GENERAL: Well-developed in no acute distress. HEENT: Head is normocephalic. Pupils are equal, round. Sclerae anicteric. Mucous membranes of the mouth are moist. Neck supple. No JVD or thyromegaly LUNGS: Respirations even and unlabored. Lungs essentially clear to auscultation bilaterally. HEART: Regular rate and rhythm. S1 and S2 heard. ABDOMEN: Soft. Nondistended. Nontender. EXTREMITIES: Normal range of motion. No clubbing or cyanosis. Peripheral pulses intact. No lower extremity edema NEUROLOGIC: Awake and alert. Oriented x 3. ASSESSMENT: Ventricular tachycardia, s/p ICD discharge Acute on chronic heart failure with reduced EF, 30% in 2019 Coronary artery disease with previous stenting Known ischemic cardiomyopathy History of AICD implantation Hypertension Hyperlipidemia Hypomagnesemia PLAN: Obtain 2-D echo to assess cardiac structure and function Replace potassium Replace magnesium Begin IV amiodarone bolus and drip per protocol Begin IV heparin Resume home cardiac medications Continue IV Lasix Daily weights, accurate I&O, and monitoring of kidney function Consult Dr. Man for evaluation Patient to undergo cardiac catheterization today with Dr. Jaquez Further recommendations pending patient's course Nurse practitioner note has been reviewed by physician. Signing provider agrees with the documented findings, assessment, and plan of care. Past Medical History Past Medical History: Hyperlipidemia, Myocardial Infarction ([place]) Last Myocardial Infarction Date:: 2004 History of Any Multi-Drug Resistant Organisms: None Reported Past Surgical History: Pacemaker Additional Past Surgical History / Comment(s): pacemaker/ defibrillator Past Anesthesia/Blood Transfusion Reactions: No Reported Reaction Date of Last Stent Placement:: 2004 Type of Cardiac Device: Permanent Pacemaker, AICD Device Placement Date:: 2005 Past Psychological History: No Psychological Hx Reported Smoking Status: Never smoker Past Alcohol Use History: Daily Past Drug Use History: None Reported - Past Family History Father Family Medical History: Cancer Mother Additional Family Medical History / Comment(s): arthritis Medications and Allergies Home Medications Medication Instructions Recorded Confirmed Type Aspirin EC [Ecotrin Low Dose] 81 mg PO DAILY 03/23/21 10/01/22 History Atorvastatin [Lipitor] 80 mg PO HS 03/23/21 10/01/22 History Losartan Potassium [Cozaar] 25 mg PO HS 03/23/21 10/01/22 History Mexiletine [Mexitil] 150 mg PO TID 03/23/21 10/01/22 History Omeprazole 40 mg PO DAILY 03/23/21 10/01/22 History Spironolactone [Aldactone] 25 mg PO DAILY 03/23/21 10/01/22 History allopurinoL [Zyloprim] 100 mg PO DAILY 03/23/21 10/01/22 History oxyCODONE HCL [oxyCODONE HCL (IR)] 10 mg PO Q6H PRN 03/23/21 10/01/22 History Metoprolol Succinate [Toprol XL] 100 mg PO DAILY 30 Days #30 tab 03/25/21 10/01/22 Rx Ergocalciferol (Vitamin D2) 1,250 mcg PO Q7D 10/01/22 10/01/22 History [Drisdol (50,000 Iu)] Furosemide [Lasix] 40 mg PO DAILY PRN 10/01/22 10/01/22 History Allergies Allergy/AdvReac Type Severity Reaction Status Date / Time No Known Allergies Allergy Verified 10/01/22 20:22 Physical Exam Vitals: Vital Signs Temp Pulse Pulse Resp BP BP Pulse Ox 10/02/22 08:00 94 16 125/78 100 10/02/22 04:00 98.0 F 93 16 114/69 98 10/02/22 02:00 104 H 16 10/02/22 01:45 98.0 F 104 H 16 94/57 94 L 10/02/22 01:05 98.0 F 100 16 94/57 94 L 10/02/22 00:24 112 H 19 123/87 99 10/01/22 23:07 123 H 17 126/89 93 L 10/01/22 21:15 114 H 24 119/77 10/01/22 20:42 141 H 10/01/22 20:16 97.8 F 141 H 28 H 124/86 98 Intake and Output 10/01/22 10/02/22 10/02/22 22:59 06:59 14:59 Output Total 900 Balance -900 Output: Urine 900 Other: Voiding Method Bedside Commode Diaper Incontinent # Voids 2 Weight 58.967 kg 57.7 kg Results 10/02/22 08:21 10/02/22 04:57 Cardiac Enzymes 10/01/22 10/01/22 10/02/22 Range/Units 20:31 20:31 01:57 AST 55 H (14-36) U/L Troponin I 0.026 0.183 H* (0.000-0.034) ng/mL 10/02/22 Range/Units 04:57 AST (14-36) U/L Troponin I 0.255 H* (0.000-0.034) ng/mL Coagulation 10/01/22 10/02/22 Range/Units 20:31 08:21 PT 12.7 H 11.5 (9.0-12.0) sec APTT 19.2 L 22.3 (22.0-30.0) sec CBC 10/01/22 10/02/22 10/02/22 Range/Units 20:31 04:57 08:21 WBC 12.2 H 6.0 6.4 (3.8-10.6) k/uL RBC 4.15 5.05 4.16 (3.80-5.40) m/uL Hgb 12.9 14.9 12.6 (11.4-16.0) gm/dL Hct 40.2 48.3 H 39.9 (34.0-46.0) % Plt Count 232 169 202 (150-450) k/uL Comprehensive Metabolic Panel 10/01/22 10/02/22 Range/Units 20:31 04:57 Sodium 134 L 135 L (137-145) mmol/L Potassium 4.0 3.5 (3.5-5.1) mmol/L Chloride 98 95 L (98-107) mmol/L Carbon Dioxide 23 29 (22-30) mmol/L BUN 16 15 (7-17) mg/dL Creatinine 0.67 0.59 (0.52-1.04) mg/dL Glucose 152 H 104 H (74-99) mg/dL Calcium 9.3 9.5 (8.4-10.2) mg/dL AST 55 H (14-36) U/L ALT 67 H (4-34) U/L Alkaline Phosphatase 233 H (38-126) U/L Total Protein 6.5 (6.3-8.2) g/dL Albumin 3.7 (3.5-5.0) g/dL Current Medications Generic Name Dose Route Start Last Admin Trade Name Freq PRN Reason Stop Dose Admin Allopurinol 100 mg 10/02/22 09:00 10/02/22 08:16 Allopurinol 100 Mg Tab PO 100 mg DAILY LAUREN Administration Alprazolam 0.25 mg 05/04/23 07:53 Alprazolam 0.25 Mg Tab PO Q6HR PRN Mild Anxiety Alprazolam 0.5 mg 10/02/22 07:53 Alprazolam 0.5 Mg Tab PO Q6HR PRN Moderate Anxiety Aspirin 81 mg 10/03/22 09:00 Aspirin 81 Mg PO DAILY LAUREN Atorvastatin Calcium 80 mg 10/01/22 22:30 10/01/22 22:53 Atorvastatin 80 Mg Tab PO 80 mg HS LAUREN Administration Furosemide 40 mg 10/02/22 09:00 10/02/22 08:15 Furosemide 10 Mg/Ml 4 Ml Vial IV 40 mg Q12HR LAUREN Administration Heparin Sodium (Porcine) 0 unit 10/02/22 07:55 Heparin Sodium 1,000 Un/Ml (10ml Vl) IV PER PROTOCOL PRN Low PTT Protocol Amiodarone HCl 360 mg/ 200 mls @ 33.333 mls/hr 10/02/22 08:00 10/02/22 08:24 Dextrose/Water IV 10/02/22 13:59 1 mg/min .Q6H ONE 33.333 mls/hr Administration Protocol 1 MG/MIN Amiodarone HCl 450 mg/ 250 mls @ 16.667 mls/hr 10/02/22 14:00 Dextrose/Water IV 10/03/22 07:59 .Q15H LAUREN Protocol 0.5 MG/MIN Potassium Chloride 10 meq/ IV 100 mls @ 100 mls/hr 10/02/22 08:00 10/02/22 08:24 Solution IVPB 10/02/22 11:59 100 mls/hr Q1HR LAUREN Administration Heparin Sodium (Porcine) 10, 1,001 mls @ 999 mls/hr 10/02/22 07:00 000 unit/ Sodium Chloride IRRIGATION 10/02/22 23:00 ONCE PRN INTRA-OP Heparin Sodium (Porcine) 2,500 250.5 mls @ 250 mls/hr 10/02/22 07:00 unit/ Sodium Chloride IRRIGATION 10/02/22 23:00 ONCE PRN INTRA-OP Sodium Chloride 1,000 ml/ IV 1,000 mls @ 57.7 mls/hr 10/02/22 08:00 10/02/22 08:16 Solution IV 57.7 mls/hr .[id number] LAUREN Administration 1 ML/KG/HR Heparin Sodium/Sodium Chloride 250 mls @ 6.924 mls/hr 10/02/22 08:00 10/02/22 08:18 25,000 unit/ Sodium Chloride IV 12 units/kg/hr .Q24H LAUREN 6.924 mls/hr Administration Protocol 12 UNITS/KG/HR Losartan Potassium 25 mg 10/01/22 22:30 10/01/22 22:53 Losartan 25 Mg Tab PO 25 mg HS LAUREN Administration Metoprolol Succinate 100 mg 10/02/22 09:00 10/02/22 08:16 Metoprolol Succinate (Er) 100 Mg Tab.Er.24h PO 100 mg DAILY LAUREN Administration Mexiletine HCl 150 mg 10/01/22 22:30 10/02/22 08:16 Mexiletine 150 Mg Cap PO 150 mg TID LAUREN Administration Naloxone HCl 0.2 mg 10/01/22 22:41 Naloxone 0.4 Mg/Ml 1 Ml Vial IV Q2M PRN Opioid Reversal Nitroglycerin 0.4 mg 10/02/22 07:53 10/02/22 09:30 Nitroglycerin Sl Tabs 0.4 Mg Tab SUBLINGUAL 0.4 mg Q5M PRN Administration Chest Pain Oxycodone HCl 10 mg 10/01/22 22:26 10/02/22 08:54 Oxycodone Hcl 5 Mg Tab PO 10 mg Q6H PRN Administration Pain Pantoprazole Sodium 40 mg 10/02/22 07:30 10/02/22 06:45 Pantoprazole 40 Mg Tablet PO 40 mg [id number] LAUREN Administration Spironolactone 25 mg 10/02/22 09:00 10/02/22 08:15 Spironolactone 25 Mg Tab PO 25 mg DAILY LAUREN Administration Intake and Output 10/01/22 10/02/22 10/02/22 22:59 06:59 14:59 Output Total 900 Balance -900 Output: Urine 900 Other: Voiding Method Bedside Commode Diaper Incontinent # Voids 2 Weight 58.967 kg 57.7 kg 10/02/22 08:21 10/02/22 04:57
--- NOTE | 2022-10-02 11:03 | P.PN ---
Subjective Progress Note Date: 10/02/22 Pt c/o left arm pain today, believes its related to heart. plan is for [facility] today, started amiodarone, started heparin gtt. Gen: awake, alert HEENT: normocephalic, atraumatic, good hearing acuity, moist mucous membranes Resp: good air exchange, breathing comfortably with no accessory muscle use CVS: good distal perfusion x 4, GI: soft, NTTP, ND : no SPT, no CVAT, hamlin catheter not present MSK: no pitting edema, no clubbing Neuro: non-focal, moving all extremities Psych: cooperative, euthymic mood Hospital Course: 77-year-old female with past medical history of ICMP with LVEF <20% s/p ICD pre sented to the ED due to sudden episodes of ICD firing. In the emergency room, patient was afebrile, 124/86, heart rate 141, 98% on 2 L nasal cannula. CBC demonstrated mild leukocytosis 12.2. His metabolic panel is unremarkable. Magnesium was low at 1.1. Liver function test showed total bilirubin of 1.7, AST 55, ALT of 67, alkaline phosphatase at 233. Troponin was 0.0269 trended up 0.183 degenerative 0.255. BNP was 4920. TSH was 2.87. Coags showed INR 1.2. EKG demonstrated sinus tachycardia with occasional PVCs, left axis deviation. Chest x-ray shows cardiomegaly with left atrial enlargement, increased pulmonary vascularity with mild pleural effusion on the right and left consistent with heart failure exacerbation. Case was discussed with the emergency room physician and decision was made to with the patient inpatient status for evaluation by cardiology for the same ventricular tachycardia requiring antitachycardia pacing and defibrillation by ICD. Assessment: Sustained ventricular tachycardia Elevated troponin Ischemic cardiomyopathy, Acute on chronic systolic heart failure, ejection fraction less than 20% CAD HTN HLD Plan: Today, patient was afebrile, 125/70, heart rate 94, 100% on 2 L nasal cannula. CBC today is unremarkable Basic metabolic panel shows hyponatremia to 135, CO2 of 95 Magnesium is improved to 1.6 EKG and chest x-ray were personally interpreted and noted in the hospital course above Case was discussed with cardiology today, patient will be started on amiodarone, heparin, taken to clinical lab specialist Continue heparin drip, monitor PTT for toxicity Continue amiodarone drip, monitor for toxicity on telemetry Continue mexiletine 150 mg 3 times a day Continue metoprolol 100 mg daily Continue sublingual nitro when necessary Continue aspirin, statin, Lasix, losartan, spironolactone Patient is full code Objective - Vital Signs Vital signs: Vital Signs Temp 98.0 F 10/02/22 04:00 Pulse 94 10/02/22 08:00 Resp 16 10/02/22 08:00 BP 125/78 10/02/22 08:00 Pulse Ox 100 10/02/22 08:00 FiO2 Intake & Output 10/01/22 10/02/22 10/02/22 18:59 06:59 18:59 Output Total 900 Balance -900 Weight 57.7 kg Output: Urine 900 Other: Voiding Method Bedside Commode Diaper Incontinent # Voids 2 - Labs CBC & Chem 7: 10/02/22 08:21 10/02/22 04:57 Labs: Abnormal Lab Results - Last 24 Hours (Table) 10/01/22 10/01/22 10/01/22 Range/Units 20:31 20:31 20:31 WBC 12.2 H (3.8-10.6) k/uL Hct (34.0-46.0) % MCHC (31.0-37.0) g/dL Neutrophils # 9.0 H (1.3-7.7) k/uL PT 12.7 H (9.0-12.0) sec INR 1.2 H (<1.2) APTT 19.2 L (22.0-30.0) sec Sodium 134 L (137-145) mmol/L Chloride (98-107) mmol/L Glucose 152 H (74-99) mg/dL Magnesium 1.1 L (1.6-2.3) mg/dL Total Bilirubin 1.7 H (0.2-1.3) mg/dL AST 55 H (14-36) U/L ALT 67 H (4-34) U/L Alkaline Phosphatase 233 H (38-126) U/L Troponin I (0.000-0.034) ng/mL 10/02/22 10/02/22 10/02/22 Range/Units 01:57 04:57 04:57 WBC (3.8-10.6) k/uL Hct 48.3 H (34.0-46.0) % MCHC 30.8 L (31.0-37.0) g/dL Neutrophils # (1.3-7.7) k/uL PT (9.0-12.0) sec INR (<1.2) APTT (22.0-30.0) sec Sodium (137-145) mmol/L Chloride (98-107) mmol/L Glucose (74-99) mg/dL Magnesium (1.6-2.3) mg/dL Total Bilirubin (0.2-1.3) mg/dL AST (14-36) U/L ALT (4-34) U/L Alkaline Phosphatase (38-126) U/L Troponin I 0.183 H* 0.255 H* (0.000-0.034) ng/mL 10/02/22 Range/Units 04:57 WBC (3.8-10.6) k/uL Hct (34.0-46.0) % MCHC (31.0-37.0) g/dL Neutrophils # (1.3-7.7) k/uL PT (9.0-12.0) sec INR (<1.2) APTT (22.0-30.0) sec Sodium 135 L (137-145) mmol/L Chloride 95 L (98-107) mmol/L Glucose 104 H (74-99) mg/dL Magnesium (1.6-2.3) mg/dL Total Bilirubin (0.2-1.3) mg/dL AST (14-36) U/L ALT (4-34) U/L Alkaline Phosphatase (38-126) U/L Troponin I (0.000-0.034) ng/mL
[2022-10-02] MEDS ORDERED: POTASSIUM CHLORIDE ER 20 MEQ TAB.ER PO STA (11:25)
[2022-10-02] MEDS ORDERED: IV FLUID CONTINUATION 900 ML IV ONE (12:22)
[2022-10-02] MEDS ORDERED: LIDOCAINE 1% INJ 10MG/ML (20 ML MDV) ONE (12:27)
[2022-10-02] MEDS ORDERED: SODIUM CHLORIDE 0.9% 500 ML 500 ML IV ONE (12:30)
[2022-10-02] MEDS ORDERED: LIDOCAINE 1% INJ 10MG/ML (30 ML VIAL-PF) SQ ONE (12:43)
[2022-10-02] MEDS ORDERED: PHENYLEPHRINE-0.9% NACL SYG 1,000 MCG/10 ML SYRINGE IV ONE ×2 (12:54)
[2022-10-02] MEDS ORDERED: NOREPINEPHRINE 4 MG in SODIUM CHLORIDE 0.9% 250 ML IV ONE (12:59)
[2022-10-02] MEDS ORDERED: HEPARIN SODIUM 1,000 UN/ML (10ML VL) ONE (13:20)
[2022-10-02] MEDS ORDERED: MIDAZOLAM 2 MG/2 ML VIAL IV ONE ×3 (13:35)
[2022-10-02] MEDS: HEPARIN SODIUM 1,000 UN/ML (10ML VL) IV ONE ×3 (13:37→14:39)
[2022-10-02] MEDS ORDERED: HYDROmorphone 0.5 MG/0.5 ML SYRINGE IVP ONE (13:37)
[2022-10-02] MEDS ORDERED: AMIODARONE 450 MG in DEXTROSE 5% IN WATER 250 ML IV SCH ×2 (14:00)
[2022-10-02] MEDS ORDERED: EPINEPHrine 10 ML SYRINGE (0.1 MG/ML) ONE (14:47)
[2022-10-02] MEDS ORDERED: METOPROLOL TARTRATE 5 MG/5 ML VIAL IVP ONE ×2 (14:49→14:51)
[2022-10-02] MEDS ORDERED: IOPAMIDOL-370 100ML BTL INJ ONE ×2 (15:00→15:01)
[2022-10-02] MEDS ORDERED: CLOPIDOGREL 75 MG TAB ONE (15:12)
[2022-10-02] MEDS ORDERED: CLOPIDOGREL 75 MG TAB OG-TUBE ONE (15:29)
[2022-10-02] MEDS ORDERED: MAG HYDROX/AL HYDROX/SIMETH 30 ML CUP PO PRN (15:38)
[2022-10-02] MEDS ORDERED: ZOLPIDEM 5 MG TAB PO PRN (15:38)
[2022-10-02] MEDS ORDERED: ATROPINE SULFATE 0.1 MG/ML 10ML SYRINGE IV PRN (15:38)
[2022-10-02] MEDS ORDERED: RX INFO: IV CONTRAST WAS GIVEN 1 EACH MISC MISCELLANE PRN (15:38)
[2022-10-02 15:58] LABS: Glucose,Whole Blood 214 mg/dL (70-110)
[2022-10-02] MEDS ORDERED: IPRATROPIUM-ALBUTEROL 3 ML NEB INHALATION PRN (16:08)
[2022-10-02] MEDS ORDERED: CISATRACURIUM 2 MG/ML 5 ML VIAL IV ONE (16:23)
[2022-10-02 16:58] LABS: ABG Base Excess -3.8 mmol/L; ABG HCO3 23 mmol/L (21-25); ABG Oxygen Saturation 94.9 % (94-97); ABG PCO2 50 mmHg (35-45); ABG PH 7.28 (7.35-7.45); ABG PO2 88 mmHg (83-108); Allen Test Performed? Yes
--- NOTE | 2022-10-02 17:04 | P.CNPUL ---
History of Present Illness Consult date: 10/02/22 Requesting physician: Lenora Snowden Chief complaint: Non-ST segment elevation myocardial infarction. History of present illness: Pulmonary/critical care consult dated 10/02/2022. 77-year-old female with a history of ischemic cardiomyopathy, hypertension, and ICD, who presented to the emergency department at 8:15 PM, on October 01. The patient states that her device went off 4 times at home. She apparently was not having any chest pain or shortness of breath at that time. The patient does follow with cardiology, and denied all symptoms including nausea, vomiting, and shortness of breath. She did apparently had some swelling to the lower extremities. She does have chronic hypoxemic respiratory failure and does use oxygen at home at 2 L. The patient ended up going to the catheterization laboratory today, and had a stent placed in the right coronary artery. While in the catheterization laboratory, she developed harder pulmonary rest, was resuscitated, intubated, and had a Impella device inserted. I was called by cardiology about her, and I met her in the intensive care unit, room 266. The patient is currently on the ventilator, assist control mode, rate 12, tidal volume 375, 100%, PEEP of 5. Gases are currently pending. The patient's on heparin, the overweight based protocol, norepinephrine at 12 mcg/m, amiodarone at 1 mg/m, propofol at 25 mcg/kg/m, 0.9 at 75 mL an hour, and dobutamine at 5 m cg/kg/m. I placed a right femoral triple-lumen catheter for additional IV access. Arterial blood gases are currently pending. Chest x-rays pending. The patient was seen and examined. Current laboratory data includes a white count 6.4, hemoglobin 12.6, hematocrit 39.9, and a platelet count that was normal. Coagulation studies were normal. Sodium 135, potassium 3.5, chlorides 95, CO2 29, anion gap 11, BUN 15, creatinine 0.59. N-terminal proBNP was 4920. Troponins were 0.026, 0.183, and 0.255. Her chest x-ray on admission shows cardiomegaly, her AICD device, and mild pulmonary vascular congestion with small bilateral pleural effusions. Review of Systems REVIEW OF SYSTEMS: CONSTITUTIONAL: [Negative.] NEUROLOGIC: [ Negative.] HEENT: [ Negative.] CARDIAC: Lower extremity edema, and 4 shocks from her AICD. PULMONARY: [Negative.] GI: [Negative.] : [Negative.] RHEUMATOLOGIC: [ Negative.] IMMUNOLOGIC: [ Negative.] ENDOCRINE: [Negative. ] DERMATOLOGIC: [Negative.] Past Medical History Past Medical History: Hyperlipidemia, Myocardial Infarction ([place]) Last Myocardial Infarction Date:: 2004 History of Any Multi-Drug Resistant Organisms: None Reported Past Surgical History: Pacemaker Additional Past Surgical History / Comment(s): pacemaker/ defibrillator Past Anesthesia/Blood Transfusion Reactions: No Reported Reaction Date of Last Stent Placement:: 2004 Type of Cardiac Device: Permanent Pacemaker, AICD Device Placement Date:: 2005 Past Psychological History: No Psychological Hx Reported Smoking Status: Never smoker Past Alcohol Use History: Daily Past Drug Use History: None Reported - Past Family History Father Family Medical History: Cancer Mother Additional Family Medical History / Comment(s): arthritis Medications and Allergies Home Medications Medication Instructions Recorded Confirmed Type Aspirin EC [Ecotrin Low Dose] 81 mg PO DAILY 03/23/21 10/01/22 History Atorvastatin [Lipitor] 80 mg PO HS 03/23/21 10/01/22 History Losartan Potassium [Cozaar] 25 mg PO HS 03/23/21 10/01/22 History Mexiletine [Mexitil] 150 mg PO TID 03/23/21 10/01/22 History Omeprazole 40 mg PO DAILY 03/23/21 10/01/22 History Spironolactone [Aldactone] 25 mg PO DAILY 03/23/21 10/01/22 History allopurinoL [Zyloprim] 100 mg PO DAILY 03/23/21 10/01/22 History oxyCODONE HCL [oxyCODONE HCL (IR)] 10 mg PO Q6H PRN 03/23/21 10/01/22 History Metoprolol Succinate [Toprol XL] 100 mg PO DAILY 30 Days #30 tab 03/25/21 10/01/22 Rx Ergocalciferol (Vitamin D2) 1,250 mcg PO Q7D 10/01/22 10/01/22 History [Drisdol (50,000 Iu)] Furosemide [Lasix] 40 mg PO DAILY PRN 10/01/22 10/01/22 History Allergies Allergy/AdvReac Type Severity Reaction Status Date / Time No Known Allergies Allergy Verified 10/01/22 20:22 Physical Exam Osteopathic Statement: *. No significant issues noted on an osteopathic structural exam other than those noted in the History and Physical/Consult. Vitals: Vital Signs Temp Pulse Pulse Resp BP BP Pulse Ox 10/02/22 16:03 10/02/22 14:23 10/02/22 08:00 94 16 125/78 100 10/02/22 04:00 98.0 F 93 16 114/69 98 10/02/22 02:00 104 H 16 10/02/22 01:45 98.0 F 104 H 16 94/57 94 L 10/02/22 01:05 98.0 F 100 16 94/57 94 L 10/02/22 00:24 112 H 19 123/87 99 10/01/22 23:07 123 H 17 126/89 93 L 10/01/22 21:15 114 H 24 119/77 10/01/22 20:42 141 H 10/01/22 20:16 97.8 F 141 H 28 H 124/86 98 FiO2 10/02/22 16:03 100 10/02/22 14:23 100 10/02/22 08:00 10/02/22 04:00 10/02/22 02:00 10/02/22 01:45 10/02/22 01:05 10/02/22 00:24 10/01/22 23:07 10/01/22 21:15 10/01/22 20:42 10/01/22 20:16 Intake and Output 10/02/22 10/02/22 10/02/22 06:59 14:59 22:59 Intake Total 261 Output Total 900 Balance -900 261 Intake: IV 261 Output: Urine 900 Other: Voiding Method Bedside Commode Bedside Commode Diaper Diaper Incontinent Incontinent # Voids 2 Weight 57.7 kg 57.7 kg No acute distress, sedated, with an orally placed endotracheal tube. HEENT examination is grossly unremarkable. Neck supple. Full range of motion. No adenopathy thyromegaly or neck vein di stention. Cardiovascular examination reveals regular rhythm rate. S1-S2 normal. No S3 or S4. No discernible murmur noted. Heart sounds are distant. Heart rate 105 bpm. Lungs reveal mild scattered rhonchi. No wheezes. No distinct crackles. Breath sounds equal bilaterally. Saturations are 98%. Abdomen soft, without bowel sounds. No masses. Extremities are intact. No cyanosis clubbing or edema. Skin is without rash or lesion. Neurologic examination cannot be assessed. Results - Laboratory Findings CBC and BMP: 10/02/22 08:21 10/02/22 04:57 PT/INR, D-dimer PT 11.5 sec (9.0-12.0) 10/02/22 08:21 INR 1.1 (<1.2) 10/02/22 08:21 Abnormal lab findings: Abnormal Labs 10/01/22 10/01/22 10/01/22 20:31 20:31 20:31 WBC 12.2 H Hct MCHC Neutrophils # 9.0 H PT 12.7 H INR 1.2 H APTT 19.2 L Sodium 134 L Chloride Glucose 152 H POC Glucose (mg/dL) Magnesium 1.1 L Total Bilirubin 1.7 H AST 55 H ALT 67 H Alkaline Phosphatase 233 H Troponin I 10/02/22 10/02/22 10/02/22 01:57 04:57 04:57 WBC Hct 48.3 H MCHC 30.8 L Neutrophils # PT INR APTT Sodium Chloride Glucose POC Glucose (mg/dL) Magnesium Total Bilirubin AST ALT Alkaline Phosphatase Troponin I 0.183 H* 0.255 H* 10/02/22 10/02/22 04:57 15:56 WBC Hct MCHC Neutrophils # PT INR APTT Sodium 135 L Chloride 95 L Glucose 104 H POC Glucose (mg/dL) 214 H Magnesium Total Bilirubin AST ALT Alkaline Phosphatase Troponin I - Diagnostic Findings Chest x-ray: image reviewed Assessment and Plan Assessment: Acute non-ST segment elevation myocardial infarction, status post PCI with stenting of the RCA, and insertion of an Impella device, for cardiogenic shock. S/P cardiopulmonary arrest, with cardiopulmonary resuscitation, and return of spontaneous circulation, S/P intubation and mechanical ventilation on October 02. History of myocardial infarction. History of hyperlipidemia. Status post pacemaker/AICD placement (2005). History of hypertension. History of ischemic cardiomyopathy. Plan: Plan dated 10/02/2022. The patient arrives from the catheterization laboratory on a number of different drips including heparin, norepinephrine, amiodarone, propofol, dobutamine, and saline. The patient had a period of cardiopulmonary arrest with resuscitation in the catheterization laboratory. She was intubated and mechanically ventilated. She comes back to the ICU with an Impella device for cardiogenic shock. I place a right femoral vein triple lumen catheter. Initial blood gases, are reviewed, and the ventilator rates increased to 20, and the PEEP up to 10, and respiratory well titrate down the FiO2 if his saturations are 93% or higher. We will add albuterol sulfate and ipratropium bromide to her regimen. I did speak to cardiology about this patient. Labs, x-rays, and medications are reviewed. Laboratory data blood gases as well as a chest x-ray will be ordered for the morning. Prognosis is guarded. We will continue to follow this patient make recommendations along the way. Time with Patient: Greater than 30
--- NOTE | 2022-10-02 17:11 | XR ---
EXAMINATION TYPE: XR chest 1V portable DATE OF EXAM: 10/02/2022 5:04 PM COMPARISON: Chest radiographs from 10/01/2022 TECHNIQUE: XR chest 1V portable Frontal view of the chest. CLINICAL INDICATION:Female, 77 years old with history of intubation; FINDINGS: Lungs/Pleura: There is no evidence of pleural effusion, focal consolidation, or pneumothorax. Pulmonary vascularity: Unremarkable. Heart/mediastinum: Cardiomediastinal silhouette is enlarged and stable. Two lead cardiac conduction d evice overlying the left hemithorax with lead tips projecting over the right ventricle and right atri um. Musculoskeletal: No acute osseous pathology. Midline sternotomy wires are noted. Other findings: None Lines/Tubes: Endotracheal tube with distal tip 3.5 cm above the charlie. Nasogastric tube with its distal tip and side-port projecting under the diaphragm. Left ventricular assist device tubing is present. Tubing appears in appropriate position. IMPRESSION: 1. Endotracheal tube with distal tip above the charlie. 2. Nasogastric tube with tip in appropriate position. 3. Left ventricular assist device appears in appropriate position.
[2022-10-02 17:20] LABS: Basophils % (A) 0 %; Eosinophils % (A) 0 %; HCT 37.7 % (34.0-46.0); HGB 11.8 gm/dL (11.4-16.0); Hypochromasia Moderate; Lymphocytes # (A) 0.4 k/uL (1.0-4.8); Lymphocytes % (A) 5 %; MCH 31.1 pg (25.0-35.0); MCHC 31.2 g/dL (31.0-37.0); MCV 99.6 fL (80.0-100.0); Macrocytosis Slight; Mean Platelet Volume 9.7; Monocytes # (A) 0.4 k/uL (0-1.0); Monocytes % (A) 4 %; Neutrophils # (A) 7.3 k/uL (1.3-7.7); Neutrophils % (A) 89 %; Platelet Count 205 k/uL (150-450); RBC 3.78 m/uL (3.80-5.40); RDW 14.9 % (11.5-15.5); WBC 8.2 k/uL (3.8-10.6)
[2022-10-02 17:37] LABS: INR 1.5 (<1.2); Prothrombin Time 14.7 sec (9.0-12.0)
[2022-10-02] MEDS: NOREPINEPHRINE 4 MG in SODIUM CHLORIDE 0.9% 250 ML IV SCH ×2 (17:48→21:45)
[2022-10-02] MEDS: DOBUTamine DRIP 500 MG in DEXTROSE/WATER 1 250ML.BAG IV SCH (17:48)
[2022-10-02 17:51] LABS: Partial Thromboplastin Time 160.2 sec (22.0-30.0)
[2022-10-02] MEDS: SODIUM CHLORIDE 0.9% 1,000 ML IV SCH ×2 (17:56→23:30)
[2022-10-02] MEDS: SODIUM BICARB (1 MEQ/ML) 12.5 ML in DEXTROSE 5% IN WATER 500 ML IV SCH ×2 (19:07)
[2022-10-02] MEDS: IPRATROPIUM-ALBUTEROL 3 ML NEB INHALATION SCH (19:11)
[2022-10-02 19:40] LABS: Calcium 8.1 mg/dL (8.4-10.2)
[2022-10-02 19:57] LABS: Potassium 3.7 mmol/L (3.5-5.1)
[2022-10-02] MEDS: LOSARTAN 25 MG TAB PO SCH (20:48)
[2022-10-02] MEDS ORDERED: FUROSEMIDE 10 MG/ML 2 ML VIAL IV ONE (20:49)
[2022-10-02 21:39] LABS: Partial Thromboplastin Time 58.1 sec (22.0-30.0)
[2022-10-02] MEDS: EPINEPHrine 4 MG in DEXTROSE 5% IN WATER 250 ML IV SCH ×2 (21:44)
[2022-10-02] MEDS: ATORVASTATIN 80 MG TAB PO SCH (21:46)
[2022-10-02 22:22] LABS: Basophils % (A) 0 %; Eosinophils % (A) 0 %; HCT 35.1 % (34.0-46.0); HGB 11.2 gm/dL (11.4-16.0); Hypochromasia Slight; Lymphocytes # (A) 0.8 k/uL (1.0-4.8); Lymphocytes % (A) 7 %; MCH 31.5 pg (25.0-35.0); MCHC 31.8 g/dL (31.0-37.0); Macrocytosis Slight; Mean Platelet Volume 9.5; Monocytes # (A) 0.6 k/uL (0-1.0); Monocytes % (A) 5 %; Neutrophils # (A) 9.3 k/uL (1.3-7.7); Neutrophils % (A) 84 %; Platelet Count 200 k/uL (150-450); RBC 3.54 m/uL (3.80-5.40); RDW 14.8 % (11.5-15.5); WBC 11.1 k/uL (3.8-10.6)
[2022-10-02] MEDS ORDERED: SODIUM CHLORIDE 0.9% 500 ML 250 ML IV ONE (22:47)
--- NOTE | 2022-10-02 23:04 | PCN ---
PROCEDURE NOTE PROCEDURE PERFORMED: Right femoral triple-lumen catheter. PREOPERATIVE DIAGNOSIS: Administration of fluids and pressors, IV access, hypotension. POSTOPERATIVE DIAGNOSIS: Administration of fluids and pressors, IV access, hypotension. INDICATION: Hemodynamic monitoring/Intravenous access. A time-out was completed verifying correct patient, procedure, site, positioning, and implant(s) or special equipment if applicable. DESCRIPTION OF PROCEDURE: The patient was placed in a dependent position appropriate for triple lumen catheter placement based on the vein to be cannulated. The patient's right groin was prepped and draped in sterile fashion. 1% Lidocaine was used to anesthetize the surrounding skin area. A triple lumen 9F Cordis catheter was introduced into the right common femoral vein using Seldinger technique. The catheter was threaded smoothly over the guide wire and appropriate blood return was obtained from all 3 ports. Each lumen of the catheter was evacuated of air and flushed with sterile saline. The catheter was then sutured in place to the skin and a sterile dressing was applied by the nurse. There was no immediate complication. The patient tolerated the procedure well. MMODL / IJN: [id number] /
[2022-10-03] MEDS: IPRATROPIUM-ALBUTEROL 3 ML NEB INHALATION SCH ×6 (00:51→20:46)
[2022-10-03 01:06] LABS: Glucose,Whole Blood 187 mg/dL (70-110)
[2022-10-03] MEDS: NOREPINEPHRINE 4 MG in SODIUM CHLORIDE 0.9% 250 ML IV SCH (04:09)
[2022-10-03 04:17] LABS: Ionized Calcium 4.7 mg/dL (4.5-5.3)
[2022-10-03 04:20] LABS: Calcium 7.9 mg/dL (8.4-10.2)
[2022-10-03 04:30] LABS: Magnesium 1.9 mg/dL (1.6-2.3); Potassium 4.1 mmol/L (3.5-5.1); Total Bilirubin 4.5 mg/dL (0.2-1.3); Total Protein 5.7 g/dL (6.3-8.2)
[2022-10-03 04:39] LABS: INR 1.3 (<1.2); Partial Thromboplastin Time 23.4 sec (22.0-30.0); Prothrombin Time 13.2 sec (9.0-12.0)
[2022-10-03 04:41] LABS: Basophils % (A) 0 %; Eosinophils % (A) 0 %; HCT 31.6 % (34.0-46.0); HGB 10.6 gm/dL (11.4-16.0); Hypochromasia Slight; Lymphocytes # (A) 1.1 k/uL (1.0-4.8); Lymphocytes % (A) 8 %; MCH 32.7 pg (25.0-35.0); MCHC 33.6 g/dL (31.0-37.0); MCV 97.3 fL (80.0-100.0); Mean Platelet Volume 10.6; Monocytes # (A) 1.2 k/uL (0-1.0); Monocytes % (A) 9 %; Neutrophils # (A) 10.2 k/uL (1.3-7.7); Neutrophils % (A) 79 %; Platelet Count 188 k/uL (150-450); RBC 3.25 m/uL (3.80-5.40); RDW 15.1 % (11.5-15.5); WBC 12.9 k/uL (3.8-10.6)
[2022-10-03 05:12] LABS: Large Platelets Present; Polychromasia Present
--- NOTE | 2022-10-03 05:13 | CC ---
CARDIAC CATHETERIZATION REPORT PROCEDURES PERFORMED: 1. Left heart catheterization. 2. Impella heart pump placement from left femoral arterial approach under fluoroscopic guidance. 3. Percutaneous transluminal coronary angioplasty and stenting of the dominant mid RCA with a drug-eluting stent. PERFORMED BY: Dr. Curt Jaquez. Moderate conscious sedation time was 2 hours and 29 minutes. The patient was administered Versed and subsequently she was intubated and placed on a propofol drip with anesthesia in attendance. CLINICAL INFORMATION: Ms. Laney Chang is a 77-year-old lady with a history of ischemic cardiomyopathy, ejection fraction of 25% to 30% with a known LAD occlusion following an acute MA in 2004 after which she had a complication during PCI requiring open-heart surgery to help address the tamponade. No bypass was performed. Following that, she came from [facility] and was on the ICD. The battery of it was replaced a couple of times. She has episodes of ventricular tachycardia requiring a combination of beta ricardo and mexiletine. However, for the last 3 to 4 weeks, she is having episodes of chest tightness, pressure, shortness of breath and episodes of palpitations. She came to the hospital after 3 ICD discharges, was found to be in ventricular tachycardia on interrogation of the device. However, she had non ST elevation MA as well, was advised cardiac cath. Risks, benefits, options, rationale were explained to the patient. I also spoke to her [id number] at length. I explained that this is a high risk for intervention given the poor LV function and known LAD occlusion. 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 We gave her a fluid bolus and also some Remi-Synephrine 250 mcg and I started the procedure from the right femoral approach. The patient's pulses were somewhat diminished. I was able to gain access to the right femoral artery and placed a 6-Tamazight introducer. However, there was significant narrowing of the right femoral system with heavy calcification. I performed a cardiac catheterization after checking LV pressures with the right Jose catheter and noted that she had a total occlusion of mid LAD with ipsilateral collaterals with no significant disease in the nondominant circumflex and a 95% stenosis of a heavily calcified mid RCA beyond which the vessel was of improved caliber and a very super dominant RCA. She was advised intervention, but I felt we should place an Impella heart pump prior to any intervention given her ejection fraction of 25% or less. After some deliberation, I took an angiogram of the left femoral and noted that the caliber was decent. I therefore placed the Impella under strict aseptic precautions and local anesthesia. I preclosed it with 2 Perclose devices at 10 o'clock and 2 o'clock position. There is a 14-Tamazight sheath, which is a short sheath, was placed and Impella was advanced and positioned in the LV apex. Good waveform was achieved. Cardiac output was about 3.4 to 3.5 L. I then proceeded to perform PCI. I used a left Amplatz 0.75 guide catheter to cannulate the right coronary artery and a Runthrough wire to cross it. I had difficulty with the guide support. The wire came out and I went back and recannulated and at this time, I used a Whisper wire with which I could not cross the heavily calcified mid RCA lesion with the MCQUEEN caudal projection. I switched over to a SuperCross 45-degree with 0.014 able to cross the lesion, wire was kept distally. I tried to advance a 2.0 caliber NC trek balloon, but I had difficulty. I was able to advance the 1.5 caliber 12 mm trek balloon. I gave high pressure inflation and then switched over to a 2.25 caliber 12 mm NC Trek balloon and dilated the area with improvement. The patient then became more hypotensive and had a run of ventricular tachycardia, requiring to be shocked and also had a CPR for about 3 to 4 minutes. The patient was placed on Levophed with a full Impella support. I then advanced a 3.0 caliber NC Trek balloon and dilated the area with a good improvement. I deployed a 12 mm long 3.0-caliber Xience stent and expanded this at 14 to 15 atmospheres. Excellent angiographic result was achieved. I considered placing another stent distally, but overall angiographic appearance was excellent at the site where there was a 95% stenosis with calcium, now had 0% narrowing. Excellent angiographic result was achieved, but the patient continued to be unstable hemodynamically. The catheter was taken out and the right femoral sheath was sutured in. The Impella sheath was taken out and the sleeve was advanced further. There was a fairly decent hemostasis in both groins. Both the Impella was sutured as well as the right sheath was sutured. She was on about 5 mcg of Levophed and I also advised dobutamine to be started and the patient was sent to the ICU with a cardiac output of about 3.4 L on Impella. CARDIAC CATHETERIZATION FINDINGS: Left ventricular end-diastolic pressure was 26 mmHg without any gradient across the aortic valve. CORONARY ANGIOGRAPHY FINDINGS: RIGHT CORONARY ARTERY: Superdominant vessel, proximal caliber was good. Mid area was heavily calcified with a 95% stenosis after which the caliber improves. It gives off PDA and PLV branches both of which have diffuse disease. Super dominant vessel supplies a lot of myocardium 95% mid lesion. LEFT MAIN CORONARY ARTERY: Short, patent vessel, bifurcates into LAD and circumflex. No significant disease. LEFT ANTERIOR DESCENDING CORONARY ARTERY: This vessel gives off a septal and diagonal branch, totally occluded in the midportion, fills late with ipsilateral collateral. She is known to have a total occlusion in the past where previous PCI was performed. Left posterior circumflex coronary artery: Nondominant vessel. Minor irregularities. Limited amount of myocardium supplied by it. PCI of a heavily calcified mid RCA was performed with the Impella support. Excellent angiographic result was achieved. The patient was sent to the ICU with Impella and placed on a combination of Levophed and dobutamine. Prognosis remains guarded. Findings were discussed with the patient's daughter, son, [id number] and also a close family friend. Prognosis remains guarded. Mortality risk is high. The patient and family are fully aware of this. MMODL / IJN: [id number] / ANTONIO
[2022-10-03 05:31] LABS: ABG Base Excess -4.8 mmol/L; ABG HCO3 19 mmol/L (21-25); ABG Oxygen Saturation 99.3 % (94-97); ABG PCO2 35 mmHg (35-45); ABG PH 7.37 (7.35-7.45); ABG PO2 165 mmHg (83-108); Allen Test Performed? Yes
[2022-10-03 06:13] LABS: Glucose,Whole Blood 168 mg/dL (70-110)
[2022-10-03] MEDS ORDERED: SODIUM CHLORIDE 0.9% 500 ML 250 ML IV ONE (06:13)
[2022-10-03] MEDS ORDERED: Magnesium Replacement Protocol 1 EACH MISC MISCELLANE PRN (06:21)
--- NOTE | 2022-10-03 07:08 | XR ---
EXAMINATION TYPE: XR chest 1V portable DATE OF EXAM: 10/03/2022 5:54 AM COMPARISON: Chest radiographs from 10/02/2022 TECHNIQUE: XR chest 1V portable Portable AP radiograph of the chest. CLINICAL INDICATION:Female, 77 years old with history of LVAD placement. Perform with HOB at 0 degree s.; FINDINGS: Lungs/Pleura: There is no evidence of pleural effusion, focal consolidation, or pneumothorax. Hyperi nflation compatible with COPD. Biapical pleural-parenchymal scarring. Pulmonary vascularity: Unremarkable. Heart/mediastinum: Cardiomediastinal silhouette is enlarged and stable. Atherosclerotic calcificatio ns are seen in the aorta. Two lead cardiac conduction device overlying the left hemithorax with lead tips projecting over the right ventricle and right atrium. Musculoskeletal: No acute osseous pathology. Midline sternotomy wires are noted and stable. Bilateral shoulder arthropathy. Other findings: None Lines/Tubes: Endotracheal tube with distal tip 2.9 cm above the charlie Nasogastric tube with its distal tip and side-port projecting under the diaphragm. Left ventricular assist device tubing is present. Tubing appears in appropriate position. IMPRESSION: 1. Overall stable examination with stable support tubes. 2. Left ventricular assist device appears in appropriate position.
[2022-10-03] MEDS ORDERED: MAGNESIUM SULFATE-D5W PMX 1 GM in DEXTROSE/WATER 1 100ML.BAG IVPB ONE (07:30)
--- NOTE | 2022-10-03 08:16 | P.PN ---
Subjective Progress Note Date: 10/03/22 Principal diagnosis: Acute coronary syndrome The patient is a 77-year-old female patient with coronary artery disease as well as hypertension and dyslipidemia who was admitted to the hospital with chest discomfort and she was ruled in for acute coronary event. She underwent further evaluation including heart catheterization and that revealed chronic total occlusion of the LAD with critical disease involving the right coronary artery. She underwent yesterday successful angioplasty and stenting of the right coronary artery with adjunctive use of Impella. During the procedure the patient had brief episode of cardiopulmonary arrest and subsequently she was intubated and placed on mechanical ventilation October [id number] The patient was seen and evaluated this morning. She continues to be intubated on mechanical ventilation. The chest x-ray was reviewed with and seems to be stable with no evidence of congestive heart failure at this point. Clinically she continues to be on 2 vasopressors with norepinephrine and vasopressin's. We are coming down with a 2 vasopressors. The Impella still in place. She does have hematuria and we are continue to monitor that. Her hemoglobin this morning is 10.6 which has been stable. The creatinine remains stable. She is on dual antiplatelet therapy along with a statin along with losartan and high dose of beta ricardo. I'm going to DC the losartan in the light of hypotension and also decrease the dose of beta ricardo. An echo is in process to be done to assess the position of the embedded lab. Last night she did have left groin hematoma which was reduced by manual pressure. Assessment Acute coronary syndrome Cardiogenic shock Status post PCI of the RCA Hematuria Multiple comorbid conditions Plan Continue monitor the hematuria Continue monitoring the PT and PTT Consider DC heparin and pulled the Impella out if the hematuria persists Continue dual antiplatelet therapy Try to wean the patient from vasopressors DC losartan Decrease the dose of metoprolol succinate Follow-up on the limited echocardiogram which was performed earlier Follow-up with the patient Objective - Vital Signs Vital signs: Vital Signs Temp 97.7 F 10/03/22 04:00 Pulse 66 10/03/22 08:11 Resp 22 10/03/22 07:00 BP 131/110 10/03/22 06:10 Pulse Ox 99 10/03/22 07:00 FiO2 50 10/03/22 08:07 Intake & Output 10/02/22 10/03/22 10/03/22 18:59 06:59 18:59 Intake Total 486 2228.605 475 Output Total 125 318 40 Balance 361 1910.605 435 Weight 57.7 kg 61 kg Intake: IV 486 1550 475 0.9 125 875 125 Magnesium Sulfate-D5w Pmx 100 1 gm In Dextrose/Water 1 100ml.bag @ 100 mls/hr IVPB ONCE ONE Rx#: [id number] Sodium Chloride 0.9% 1, 225 425 000 ml @ 125 mls/hr IV . Q8H [facility] Rx#:[id number] Sodium Chloride 0.9% 500 250 250 ml 250 ml @ 999 mls/hr IV .Q16M ONE Rx#:[id number] Intake, IV Titration 678.605 Amount Heparin Sod,Pork in 0.45% 77.549 NaCl 25,000 unit In 0.45 % NaCl 1 250ml.bag @ 12 UNITS/KG/HR 6.924 mls/hr IV .Q24H [facility] Rx#: [id number] Norepinephrine 4 mg In 535.393 Sodium Chloride 0.9% 250 ml @ 0.03 MCG/KG/MIN 6. 595 mls/hr IV .Q24H [facility] Rx#:[id number] propofoL 1,000 mg In 65.663 Empty Bag 1 bag @ 15 MCG/ KG/MIN 5.193 mls/hr IV . [id number] [facility] Rx#:[id number] Output: Urine 125 318 40 Other: Voiding Method Indwelling Catheter Indwelling Catheter ABP, PAP, CO, CI - Last Documented Arterial Blood Pressure 132/113 - Labs CBC & Chem 7: 10/03/22 03:32 10/03/22 03:32 Labs: Abnormal Lab Results - Last 24 Hours (Table) 10/02/22 10/02/22 10/02/22 Range/Units 15:56 16:30 16:30 WBC (3.8-10.6) k/uL RBC 3.78 L (3.80-5.40) m/uL Hgb (11.4-16.0) gm/dL Hct (34.0-46.0) % Neutrophils # (1.3-7.7) k/uL Lymphocytes # 0.4 L (1.0-4.8) k/uL Monocytes # (0-1.0) k/uL PT 14.7 H (9.0-12.0) sec INR 1.5 H (<1.2) APTT 160.2 H* (22.0-30.0) sec ABG pH (7.35-7.45) ABG pCO2 (35-45) mmHg ABG pO2 (83-108) mmHg ABG HCO3 (21-25) mmol/L ABG O2 Saturation (94-97) % ABG Lactic Acid (0.5-1.6) mmol/L Sodium (137-145) mmol/L Chloride (98-107) mmol/L Carbon Dioxide (22-30) mmol/L BUN (7-17) mg/dL Creatinine (0.52-1.04) mg/dL Glucose (74-99) mg/dL POC Glucose (mg/dL) 214 H (70-110) mg/dL Plasma Lactic Acid Marek (0.7-2.0) mmol/L Calcium (8.4-10.2) mg/dL Total Bilirubin (0.2-1.3) mg/dL AST (14-36) U/L ALT (4-34) U/L Alkaline Phosphatase (38-126) U/L Lactate Dehydrogenase (120-246) U/L Total Protein (6.3-8.2) g/dL Albumin (3.5-5.0) g/dL 10/02/22 10/02/22 10/02/22 Range/Units 16:48 16:52 18:43 WBC (3.8-10.6) k/uL RBC (3.80-5.40) m/uL Hgb (11.4-16.0) gm/dL Hct (34.0-46.0) % Neutrophils # (1.3-7.7) k/uL Lymphocytes # (1.0-4.8) k/uL Monocytes # (0-1.0) k/uL PT (9.0-12.0) sec INR (<1.2) APTT (22.0-30.0) sec ABG pH 7.28 L (7.35-7.45) ABG pCO2 50 H (35-45) mmHg ABG pO2 (83-108) mmHg ABG HCO3 (21-25) mmol/L ABG O2 Saturation (94-97) % ABG Lactic Acid 2.5 H* (0.5-1.6) mmol/L Sodium 127 L (137-145) mmol/L Chloride 97 L (98-107) mmol/L Carbon Dioxide 20 L (22-30) mmol/L BUN (7-17) mg/dL Creatinine (0.52-1.04) mg/dL Glucose 193 H (74-99) mg/dL POC Glucose (mg/dL) (70-110) mg/dL Plasma Lactic Acid Marek (0.7-2.0) mmol/L Calcium 8.1 L (8.4-10.2) mg/dL Total Bilirubin (0.2-1.3) mg/dL AST (14-36) U/L ALT (4-34) U/L Alkaline Phosphatase (38-126) U/L Lactate Dehydrogenase (120-246) U/L Total Protein (6.3-8.2) g/dL Albumin (3.5-5.0) g/dL 10/02/22 10/02/22 10/02/22 Range/Units 19:36 20:10 21:32 WBC 11.1 H (3.8-10.6) k/uL RBC 3.54 L (3.80-5.40) m/uL Hgb 11.2 L (11.4-16.0) gm/dL Hct (34.0-46.0) % Neutrophils # 9.3 H (1.3-7.7) k/uL Lymphocytes # 0.8 L (1.0-4.8) k/uL Monocytes # (0-1.0) k/uL PT (9.0-12.0) sec INR (<1.2) APTT 58.1 H (22.0-30.0) sec ABG pH (7.35-7.45) ABG pCO2 (35-45) mmHg ABG pO2 (83-108) mmHg ABG HCO3 (21-25) mmol/L ABG O2 Saturation (94-97) % ABG Lactic Acid (0.5-1.6) mmol/L Sodium (137-145) mmol/L Chloride (98-107) mmol/L Carbon Dioxide (22-30) mmol/L BUN (7-17) mg/dL Creatinine (0.52-1.04) mg/dL Glucose (74-99) mg/dL POC Glucose (mg/dL) (70-110) mg/dL Plasma Lactic Acid Marek 2.1 H* (0.7-2.0) mmol/L Calcium (8.4-10.2) mg/dL Total Bilirubin (0.2-1.3) mg/dL AST (14-36) U/L ALT (4-34) U/L Alkaline Phosphatase (38-126) U/L Lactate Dehydrogenase (120-246) U/L Total Protein (6.3-8.2) g/dL Albumin (3.5-5.0) g/dL 10/02/22 10/03/22 10/03/22 Range/Units 23:36 01:04 03:32 WBC (3.8-10.6) k/uL RBC (3.80-5.40) m/uL Hgb (11.4-16.0) gm/dL Hct (34.0-46.0) % Neutrophils # (1.3-7.7) k/uL Lymphocytes # (1.0-4.8) k/uL Monocytes # (0-1.0) k/uL PT 13.2 H (9.0-12.0) sec INR 1.3 H (<1.2) APTT (22.0-30.0) sec ABG pH (7.35-7.45) ABG pCO2 (35-45) mmHg ABG pO2 (83-108) mmHg ABG HCO3 (21-25) mmol/L ABG O2 Saturation (94-97) % ABG Lactic Acid (0.5-1.6) mmol/L Sodium (137-145) mmol/L Chloride (98-107) mmol/L Carbon Dioxide (22-30) mmol/L BUN (7-17) mg/dL Creatinine (0.52-1.04) mg/dL Glucose (74-99) mg/dL POC Glucose (mg/dL) 187 H (70-110) mg/dL Plasma Lactic Acid Marek (0.7-2.0) mmol/L Calcium (8.4-10.2) mg/dL Total Bilirubin (0.2-1.3) mg/dL AST (14-36) U/L ALT (4-34) U/L Alkaline Phosphatase (38-126) U/L Lactate Dehydrogenase 1210 H (120-246) U/L Total Protein (6.3-8.2) g/dL Albumin (3.5-5.0) g/dL 10/03/22 10/03/22 10/03/22 Range/Units 03:32 03:32 05:04 WBC 12.9 H (3.8-10.6) k/uL RBC 3.25 L (3.80-5.40) m/uL Hgb 10.6 L (11.4-16.0) gm/dL Hct 31.6 L (34.0-46.0) % Neutrophils # 10.2 H (1.3-7.7) k/uL Lymphocytes # (1.0-4.8) k/uL Monocytes # 1.2 H (0-1.0) k/uL PT (9.0-12.0) sec INR (<1.2) APTT (22.0-30.0) sec ABG pH (7.35-7.45) ABG pCO2 (35-45) mmHg ABG pO2 165 H (83-108) mmHg ABG HCO3 19 L (21-25) mmol/L ABG O2 Saturation 99.3 H (94-97) % ABG Lactic Acid (0.5-1.6) mmol/L Sodium 129 L (137-145) mmol/L Chloride (98-107) mmol/L Carbon Dioxide 20 L (22-30) mmol/L BUN 18 H (7-17) mg/dL Creatinine 1.07 H (0.52-1.04) mg/dL Glucose 144 H (74-99) mg/dL POC Glucose (mg/dL) (70-110) mg/dL Plasma Lactic Acid Marek (0.7-2.0) mmol/L Calcium 7.9 L (8.4-10.2) mg/dL Total Bilirubin 4.5 H (0.2-1.3) mg/dL AST 332 H (14-36) U/L ALT 116 H (4-34) U/L Alkaline Phosphatase 148 H (38-126) U/L Lactate Dehydrogenase 1765 H (120-246) U/L Total Protein 5.7 L (6.3-8.2) g/dL Albumin 3.0 L (3.5-5.0) g/dL 10/03/22 Range/Units 06:12 WBC (3.8-10.6) k/uL RBC (3.80-5.40) m/uL Hgb (11.4-16.0) gm/dL Hct (34.0-46.0) % Neutrophils # (1.3-7.7) k/uL Lymphocytes # (1.0-4.8) k/uL Monocytes # (0-1.0) k/uL PT (9.0-12.0) sec INR (<1.2) APTT (22.0-30.0) sec ABG pH (7.35-7.45) ABG pCO2 (35-45) mmHg ABG pO2 (83-108) mmHg ABG HCO3 (21-25) mmol/L ABG O2 Saturation (94-97) % ABG Lactic Acid (0.5-1.6) mmol/L Sodium (137-145) mmol/L Chloride (98-107) mmol/L Carbon Dioxide (22-30) mmol/L BUN (7-17) mg/dL Creatinine (0.52-1.04) mg/dL Glucose (74-99) mg/dL POC Glucose (mg/dL) 168 H (70-110) mg/dL Plasma Lactic Acid Marek (0.7-2.0) mmol/L Calcium (8.4-10.2) mg/dL Total Bilirubin (0.2-1.3) mg/dL AST (14-36) U/L ALT (4-34) U/L Alkaline Phosphatase (38-126) U/L Lactate Dehydrogenase (120-246) U/L Total Protein (6.3-8.2) g/dL Albumin (3.5-5.0) g/dL
[2022-10-03] MEDS: PANTOPRAZOLE 40 MG/10 ML VIAL IVP SCH (08:39)
[2022-10-03] MEDS: allopurinoL 100 MG TAB PO SCH (08:39)
[2022-10-03] MEDS: ASPIRIN 81 MG PO SCH (08:39)
[2022-10-03] MEDS: CLOPIDOGREL 75 MG TAB PO SCH (08:39)
[2022-10-03] MEDS ORDERED: METOPROLOL SUCCINATE (ER) 50 MG TAB.ER.24H PO SCH (09:00)
[2022-10-03] MEDS: SPIRONOLACTONE 25 MG TAB PO SCH (09:31)
[2022-10-03] MEDS: MEXILETINE 150 MG CAP PO SCH (09:41)
[2022-10-03 10:26] LABS: HCT 32.2 % (34.0-46.0); HGB 10.4 gm/dL (11.4-16.0); Hypochromasia Slight; MCH 31.4 pg (25.0-35.0); MCHC 32.4 g/dL (31.0-37.0); MCV 96.8 fL (80.0-100.0); Mean Platelet Volume 9.7; Platelet Count 163 k/uL (150-450); RBC 3.33 m/uL (3.80-5.40); WBC 13.5 k/uL (3.8-10.6)
--- NOTE | 2022-10-03 11:06 | P.PN ---
Subjective Progress Note Date: 10/03/22 Principal diagnosis: Respiratory failure. Pulmonary/critical care consult dated 10/02/2022. 77-year-old female with a history of ischemic cardiomyopathy, hypertension, and ICD, who presented to the emergency department at 8:15 PM, on October 01. The patient states that her device went off 4 times at home. She apparently was not having any chest pain or shortness of breath at that time. The patient does follow with cardiology, and denied all symptoms including nausea, vomiting, and shortness of breath. She did apparently had some swelling to the lower extremities. She does have chronic hypoxemic respiratory failure and does use oxygen at home at 2 L. The patient ended up going to the catheterization laboratory today, and had a stent placed in the right coronary artery. While in the catheterization laboratory, she developed harder pulmonary rest, was resuscitated, intubated, and had a Impella device inserted. I was called by cardiology about her, and I met her in the intensive care unit, room 266. The patient is currently on the ventilator, assist control mode, rate 12, tidal volume 375, 100%, PEEP of 5. Gases are currently pending. The patient's on heparin, the overweight based protocol, norepinephrine at 12 mcg/m, amiodarone at 1 mg/m, propofol at 25 mcg/kg/m, 0.9 at 75 mL an hour, and dobutamine at 5 mcg/kg/m. I placed a right femoral triple-lumen catheter for additional IV access. Arterial blood gases are currently pending. Chest x-rays pending. The patient was seen and examined. Current laboratory data includes a white count 6.4, hemoglobin 12.6, hematocrit 39.9, and a platelet count that was normal. Coagulation studies were normal. Sodium 135, potassium 3.5, chlorides 95, CO2 29, anion gap 11, BUN 15, creatinine 0.59. N-terminal proBNP was 4920. Troponins were 0.026, 0.183, and 0.255. Her chest x-ray on admission shows cardiomegaly, her AICD device, and mild pulmonary vascular congestion with small bilateral pleural effusions. Progress note dated 10/03/2022. 77-year-old female who was seen in consultation yesterday. Please see the note above. The patient had a episode of cardiopulmonary arrest, and the catheterization laboratory, when she was having a stent placed in the right coronary artery. The patient was intubated, and an Impella device was placed. She was seen today in the intensive care unit. She remains on the volume assist control, rate 20, tidal volume 375, FiO2 50%, with 10. Arterial blood gases show pO2 165, pCO2 35, and pH of 7.37. Patient is on saline at 20 mL an hour, propofol at 30 mcg/kg/m, norepinephrine at 1 mcg/m, heparin via weightbase protocol, epinephrine at 2 mcg/m, and dobutamine at 5 mcg/kg/m. White count 13.5, hemoglobin 10.4, hematocrit 32.2, and platelet count 163,000. PTT is 34.4. Sodium 129, potassium 4.1, chlorides 98, CO2 20, anion gap 11, BUN 18, creatinine 1.07. Bilirubin 4.5, AST 332, ALT 116, and LDH 1765. Chest x-ray shows no evidence of significant consolidation, pleural effusion, or pneumothorax. Objective - Vital Signs Vital signs: Vital Signs Temp 98.6 F 10/03/22 08:00 Pulse 69 10/03/22 10:00 Resp 24 10/03/22 10:00 BP 114/99 10/03/22 09:15 Pulse Ox 98 10/03/22 10:00 FiO2 50 10/03/22 10:00 Intake & Output 10/02/22 10/03/22 10/03/22 18:59 06:59 18:59 Intake Total 486 2228.605 835.340 Output Total 125 318 250 Balance 361 1910.605 585.340 Weight 57.7 kg 61 kg Intake: IV 486 1550 660 0.9 125 875 250 Magnesium Sulfate-D5w Pmx 100 1 gm In Dextrose/Water 1 100ml.bag @ 100 mls/hr IVPB ONCE ONE Rx#: [id number] Sodium Chloride 0.9% 1, 225 425 60 000 ml @ 125 mls/hr IV . Q8H [facility] Rx#:[id number] Sodium Chloride 0.9% 500 250 250 ml 250 ml @ 999 mls/hr IV .Q16M ONE Rx#:[id number] Intake, IV Titration 678.605 175.340 Amount EPINEPHrine 4 mg In 83.662 Dextrose 5% in Water 250 ml @ 0.1 MCG/KG/MIN 21. 638 mls/hr IV .[id number] [facility] Rx#:[id number] Heparin Sod,Pork in 0.45% 77.549 NaCl 25,000 unit In 0.45 % NaCl 1 250ml.bag @ 12 UNITS/KG/HR 6.924 mls/hr IV .Q24H [facility] Rx#: [id number] Norepinephrine 4 mg In 535.393 57.341 Sodium Chloride 0.9% 250 ml @ 0.03 MCG/KG/MIN 6. 595 mls/hr IV .Q24H [facility] Rx#:[id number] propofoL 1,000 mg In 65.663 34.337 Empty Bag 1 bag @ 15 MCG/ KG/MIN 5.193 mls/hr IV . [id number] [facility] Rx#:[id number] Output: Gastric Drainage 100 Urine 125 318 150 Other: Voiding Method Indwelling Catheter Indwelling Catheter Indwelling Catheter ABP, PAP, CO, CI - Last Documented Arterial Blood Pressure 132/99 - Exam No acute distress, sedated, with an orally placed endotracheal tube. HEENT examination is grossly unremarkable. Neck supple. Full range of motion. No adenopathy thyromegaly or neck vein dis tention. Cardiovascular examination reveals regular rhythm rate. S1-S2 normal. No S3 or S4. No discernible murmur noted. Heart sounds are distant. Heart rate 70 bpm. Lungs reveal mild scattered rhonchi. No wheezes. No distinct crackles. Breath sounds equal bilaterally. Saturations are 98%. Abdomen soft, without bowel sounds. No masses. Extremities are intact. No cyanosis clubbing or edema. Skin is without rash or lesion. Neurologic examination cannot be assessed. - Labs CBC & Chem 7: 10/03/22 10:09 10/03/22 03:32 Labs: Abnormal Lab Results - Last 24 Hours (Table) 10/02/22 10/02/22 10/02/22 Range/Units 15:56 16:30 16:30 WBC (3.8-10.6) k/uL RBC 3.78 L (3.80-5.40) m/uL Hgb (11.4-16.0) gm/dL Hct (34.0-46.0) % Neutrophils # (1.3-7.7) k/uL Lymphocytes # 0.4 L (1.0-4.8) k/uL Monocytes # (0-1.0) k/uL PT 14.7 H (9.0-12.0) sec INR 1.5 H (<1.2) APTT 160.2 H* (22.0-30.0) sec ABG pH (7.35-7.45) ABG pCO2 (35-45) mmHg ABG pO2 (83-108) mmHg ABG HCO3 (21-25) mmol/L ABG O2 Saturation (94-97) % ABG Lactic Acid (0.5-1.6) mmol/L Sodium (137-145) mmol/L Chloride (98-107) mmol/L Carbon Dioxide (22-30) mmol/L BUN (7-17) mg/dL Creatinine (0.52-1.04) mg/dL Glucose (74-99) mg/dL POC Glucose (mg/dL) 214 H (70-110) mg/dL Plasma Lactic Acid Marek (0.7-2.0) mmol/L Calcium (8.4-10.2) mg/dL Total Bilirubin (0.2-1.3) mg/dL AST (14-36) U/L ALT (4-34) U/L Alkaline Phosphatase (38-126) U/L Lactate Dehydrogenase (120-246) U/L Total Protein (6.3-8.2) g/dL Albumin (3.5-5.0) g/dL 10/02/22 10/02/22 10/02/22 Range/Units 16:48 16:52 18:43 WBC (3.8-10.6) k/uL RBC (3.80-5.40) m/uL Hgb (11.4-16.0) gm/dL Hct (34.0-46.0) % Neutrophils # (1.3-7.7) k/uL Lymphocytes # (1.0-4.8) k/uL Monocytes # (0-1.0) k/uL PT (9.0-12.0) sec INR (<1.2) APTT (22.0-30.0) sec ABG pH 7.28 L (7.35-7.45) ABG pCO2 50 H (35-45) mmHg ABG pO2 (83-108) mmHg ABG HCO3 (21-25) mmol/L ABG O2 Saturation (94-97) % ABG Lactic Acid 2.5 H* (0.5-1.6) mmol/L Sodium 127 L (137-145) mmol/L Chloride 97 L (98-107) mmol/L Carbon Dioxide 20 L (22-30) mmol/L BUN (7-17) mg/dL Creatinine (0.52-1.04) mg/dL Glucose 193 H (74-99) mg/dL POC Glucose (mg/dL) (70-110) mg/dL Plasma Lactic Acid Marek (0.7-2.0) mmol/L Calcium 8.1 L (8.4-10.2) mg/dL Total Bilirubin (0.2-1.3) mg/dL AST (14-36) U/L ALT (4-34) U/L Alkaline Phosphatase (38-126) U/L Lactate Dehydrogenase (120-246) U/L Total Protein (6.3-8.2) g/dL Albumin (3.5-5.0) g/dL 10/02/22 10/02/22 10/02/22 Range/Units 19:36 20:10 21:32 WBC 11.1 H (3.8-10.6) k/uL RBC 3.54 L (3.80-5.40) m/uL Hgb 11.2 L (11.4-16.0) gm/dL Hct (34.0-46.0) % Neutrophils # 9.3 H (1.3-7.7) k/uL Lymphocytes # 0.8 L (1.0-4.8) k/uL Monocytes # (0-1.0) k/uL PT (9.0-12.0) sec INR (<1.2) APTT 58.1 H (22.0-30.0) sec ABG pH (7.35-7.45) ABG pCO2 (35-45) mmHg ABG pO2 (83-108) mmHg ABG HCO3 (21-25) mmol/L ABG O2 Saturation (94-97) % ABG Lactic Acid (0.5-1.6) mmol/L Sodium (137-145) mmol/L Chloride (98-107) mmol/L Carbon Dioxide (22-30) mmol/L BUN (7-17) mg/dL Creatinine (0.52-1.04) mg/dL Glucose (74-99) mg/dL POC Glucose (mg/dL) (70-110) mg/dL Plasma Lactic Acid Marek 2.1 H* (0.7-2.0) mmol/L Calcium (8.4-10.2) mg/dL Total Bilirubin (0.2-1.3) mg/dL AST (14-36) U/L ALT (4-34) U/L Alkaline Phosphatase (38-126) U/L Lactate Dehydrogenase (120-246) U/L Total Protein (6.3-8.2) g/dL Albumin (3.5-5.0) g/dL 10/02/22 10/03/22 10/03/22 Range/Units 23:36 01:04 03:32 WBC (3.8-10.6) k/uL RBC (3.80-5.40) m/uL Hgb (11.4-16.0) gm/dL Hct (34.0-46.0) % Neutrophils # (1.3-7.7) k/uL Lymphocytes # (1.0-4.8) k/uL Monocytes # (0-1.0) k/uL PT 13.2 H (9.0-12.0) sec INR 1.3 H (<1.2) APTT (22.0-30.0) sec ABG pH (7.35-7.45) ABG pCO2 (35-45) mmHg ABG pO2 (83-108) mmHg ABG HCO3 (21-25) mmol/L ABG O2 Saturation (94-97) % ABG Lactic Acid (0.5-1.6) mmol/L Sodium (137-145) mmol/L Chloride (98-107) mmol/L Carbon Dioxide (22-30) mmol/L BUN (7-17) mg/dL Creatinine (0.52-1.04) mg/dL Glucose (74-99) mg/dL POC Glucose (mg/dL) 187 H (70-110) mg/dL Plasma Lactic Acid Marek (0.7-2.0) mmol/L Calcium (8.4-10.2) mg/dL Total Bilirubin (0.2-1.3) mg/dL AST (14-36) U/L ALT (4-34) U/L Alkaline Phosphatase (38-126) U/L Lactate Dehydrogenase 1210 H (120-246) U/L Total Protein (6.3-8.2) g/dL Albumin (3.5-5.0) g/dL 10/03/22 10/03/22 10/03/22 Range/Units 03:32 03:32 05:04 WBC 12.9 H (3.8-10.6) k/uL RBC 3.25 L (3.80-5.40) m/uL Hgb 10.6 L (11.4-16.0) gm/dL Hct 31.6 L (34.0-46.0) % Neutrophils # 10.2 H (1.3-7.7) k/uL Lymphocytes # (1.0-4.8) k/uL Monocytes # 1.2 H (0-1.0) k/uL PT (9.0-12.0) sec INR (<1.2) APTT (22.0-30.0) sec ABG pH (7.35-7.45) ABG pCO2 (35-45) mmHg ABG pO2 165 H (83-108) mmHg ABG HCO3 19 L (21-25) mmol/L ABG O2 Saturation 99.3 H (94-97) % ABG Lactic Acid (0.5-1.6) mmol/L Sodium 129 L (137-145) mmol/L Chloride (98-107) mmol/L Carbon Dioxide 20 L (22-30) mmol/L BUN 18 H (7-17) mg/dL Creatinine 1.07 H (0.52-1.04) mg/dL Glucose 144 H (74-99) mg/dL POC Glucose (mg/dL) (70-110) mg/dL Plasma Lactic Acid Marek (0.7-2.0) mmol/L Calcium 7.9 L (8.4-10.2) mg/dL Total Bilirubin 4.5 H (0.2-1.3) mg/dL AST 332 H (14-36) U/L ALT 116 H (4-34) U/L Alkaline Phosphatase 148 H (38-126) U/L Lactate Dehydrogenase 1765 H (120-246) U/L Total Protein 5.7 L (6.3-8.2) g/dL Albumin 3.0 L (3.5-5.0) g/dL 10/03/22 10/03/22 10/03/22 Range/Units 06:12 10:09 10:09 WBC 13.5 H (3.8-10.6) k/uL RBC 3.33 L (3.80-5.40) m/uL Hgb 10.4 L (11.4-16.0) gm/dL Hct 32.2 L (34.0-46.0) % Neutrophils # (1.3-7.7) k/uL Lymphocytes # (1.0-4.8) k/uL Monocytes # (0-1.0) k/uL PT (9.0-12.0) sec INR (<1.2) APTT 34.4 H (22.0-30.0) sec ABG pH (7.35-7.45) ABG pCO2 (35-45) mmHg ABG pO2 (83-108) mmHg ABG HCO3 (21-25) mmol/L ABG O2 Saturation (94-97) % ABG Lactic Acid (0.5-1.6) mmol/L Sodium (137-145) mmol/L Chloride (98-107) mmol/L Carbon Dioxide (22-30) mmol/L BUN (7-17) mg/dL Creatinine (0.52-1.04) mg/dL Glucose (74-99) mg/dL POC Glucose (mg/dL) 168 H (70-110) mg/dL Plasma Lactic Acid Marek (0.7-2.0) mmol/L Calcium (8.4-10.2) mg/dL Total Bilirubin (0.2-1.3) mg/dL AST (14-36) U/L ALT (4-34) U/L Alkaline Phosphatase (38-126) U/L Lactate Dehydrogenase (120-246) U/L Total Protein (6.3-8.2) g/dL Albumin (3.5-5.0) g/dL Assessment and Plan Assessment: Acute non-ST segment elevation myocardial infarction, status post PCI with stenting of the RCA, and insertion of an Impella device, for cardiogenic shock. S/P cardiopulmonary arrest, with cardiopulmonary resuscitation, and return of spontaneous circulation, S/P intubation and mechanical ventilation on October 02. History of myocardial infarction. History of hyperlipidemia. Status post pacemaker/AICD placement (2005). History of hypertension. History of ischemic cardiomyopathy. Plan: Plan dated 10/02/2022. The patient arrives from the catheterization laboratory on a number of different drips including heparin, norepinephrine, amiodarone, propofol, dobutamine, and saline. The patient had a period of cardiopulmonary arrest with resuscitation in the catheterization laboratory. She was intubated and mechanically ventilated. She comes back to the ICU with an Impella device for cardiogenic shock. I place a right femoral vein triple lumen catheter. Initial blood gases, are reviewed, and the ventilator rates increased to 20, and the PEEP up to 10, and respiratory well titrate down the FiO2 if his saturations are 93% or higher. We will add albuterol sulfate and ipratropium bromide to her regimen. I did speak to cardiology about this patient. Labs, x-rays, and medications are reviewed. Laboratory data blood gases as well as a chest x-ray will be ordered for the morning. Prognosis is guarded. We will continue to follow this patient make recommendations along the way. Plan dated 10/03/2022. The patient is seen today in room 266. The patient's labs, x-rays, and medications are all reviewed. The patient remains on the mechanical ventilator. The patient's PEEP was decreased from 10 down to 5. She remains on propofol, norepinephrine, dobutamine, epinephrine, and IV heparin. The patient's overall prognosis remains very guarded. We will continue to follow make recommendations along the way. A right femoral triple-lumen catheter was placed yesterday for additional IV access. Time with Patient: Greater than 30
[2022-10-03] MEDS: FUROSEMIDE 10 MG/ML 2 ML VIAL IV SCH ×2 (11:30→21:15)
[2022-10-03 12:04] LABS: Glucose,Whole Blood 154 mg/dL (70-110)
--- NOTE | 2022-10-03 12:41 | CA ---
Transthoracic Echo Report Name: Laney Chang Age: 77 Gender: F : 1945 Exam Date: 10/03/2022 07:27 Exam Location: [facility] Ht (in): 64 Wt (lb): 134 Ordering Physician: Leslie Charles Attending/Referring Phys: [id number], Araceli Needle Punch Operator Taylor Torres RDCS Procedure CPT: Indications: VT, LV function Cardiac Hx: Technical Quality: Fair Contrast 1: Total Dose (mL): Contrast 2: Total Dose (mL): MEASUREMENTS (Male / Female) Normal Values 2D ECHO LV Diastolic Diameter PLAX 5.1 cm 4.2 - 5.9 / 3.9 - 5.3 cm LV Systolic Diameter PLAX 4.7 cm IVS Diastolic Thickness 1.5 cm 0.6 - 1.0 / 0.6 - 0.9 cm LVPW Diastolic Thickness 1.4 cm 0.6 - 1.0 / 0.6 - 0.9 cm LV Relative Wall Thickness 0.6 RV Internal Dim ED PLAX 3.3 cm LA Systolic Diameter LX 4.1 cm 3.0 - 4.0 / 2.7 - 3.8 cm LA Volume 59.9 cm??? 18 - 58 / 22 - 52 cm??? DOPPLER LVOT Peak Velocity 80.0 cm/s LVOT Peak Gradient 2.6 mmHg LVOT Velocity Time Integral 16.5 cm MV Area PHT 4.6 cm??? Mitral E Point Velocity 129.1 cm/s Mitral A Point Velocity 1.0 cm/s Mitral E to A Ratio 125.8 MV Deceleration Time 165.0 ms TR Peak Velocity 296.5 cm/s TR Peak Gradient 35.2 mmHg Right Ventricular Systolic Press 40.2 mmHg FINDINGS Left Ventricle Moderately increased left ventricular wall thickness. Severely reduced global left ventricular systolic function. Left ventricular ejection fraction is estimated at 20-25 %. Anteroapical, anteroseptal and intralateral akinesis. IMPELLA device noted in LV. Right Ventricle Normal right ventricular size and function. Mild pulmonary hypertension. A wire was noted in the right ventricle Right Atrium Catheter/pacemaker wire in the right atrial cavity. Left Atrium Mildly increased left atrial diameter. Mildly increased left atrial volume. Mitral Valve Mitral valve thickened. Mild mitral annular calcification. Severe mitral regurgitation. Aortic Valve Diffuse thickening (sclerosis) of the aortic valve cusps without reduced excursion. Mild aortic regurgitation. Tricuspid Valve Structurally normal tricuspid valve. Mild to moderate tricuspid regurgitation. Pulmonic Valve No pulmonic regurgitation. No pulmonic stenosis. Pericardium No pericardial effusion. Aorta Normal size aortic root and proximal ascending aorta. CONCLUSIONS 1. Severely impaired left ventricle systolic function with segmental wall motion abnormality 2. A catheter was noted in the left ventricular outflow tract 3. Severe mitral was mild to moderate tricuspid regurgitation 4. Mild aortic regurgitation Previewed by: Dr. Mike Hurtado MD (Electronically Signed) Final Date: 03 Oct 2022 12:40
[2022-10-03 13:32] VITALS: BMI 23.1
[2022-10-03] MEDS: SODIUM CHLORIDE 0.9% 500 ML 500 ML IV SCH (13:33)
[2022-10-03] MEDS: CHLORHEXIDINE GLUCONATE 15 ML CUP MUCOUS MEM SCH ×2 (13:35→21:15)
--- NOTE | 2022-10-03 13:37 | P.PN ---
Subjective Progress Note Date: 10/03/22 Pt had company and course in the [employer] warranting brief period of CPR, Impella placement, pressor initiation with Levophed, dobutamine. She had further episodes of hypotension overnight and the Impella was repositioned and patient was started on epinephrine drip as well. Gen: awake, alert HEENT: normocephalic, atraumatic, good hearing acuity, moist mucous membranes Resp: good air exchange, breathing comfortably with no accessory muscle use CVS: good distal perfusion x 4, GI: soft, NTTP, ND : no SPT, no CVAT, hamlin catheter not present MSK: no pitting edema, no clubbing Neuro: non-focal, moving all extremities Psych: cooperative, euthymic mood Hospital Course: 77-year-old female with past medical history of ICMP with LVEF <20% s/p ICD presented to the ED due to sudden episodes of ICD firing. In the emergency room, patient was afebrile, 124/86, heart rate 141, 98% on 2 L nasal cannula. CBC demonstrated mild leukocytosis 12.2. His metabolic panel is unremarkable. Magnesium was low at 1.1. Liver function test showed total bilirubin of 1.7, AST 55, ALT of 67, alkaline phosphatase at 233. Troponin was 0.0269 trended up 0.183 degenerative 0.255. BNP was 4920. TSH was 2.87. Coags showed INR 1.2. EKG demonstrated sinus tachycardia with occasional PVCs, left axis deviation. Chest x-ray shows cardiomegaly with left atrial enlargement, increased pulmonary vascularity with mild pleural effusion on the right and left consistent with heart failure exacerbation. Case was discussed with the emergency room physician and decision was made to with the patient inpatient status for evaluation by cardiology for the same ventricular tachycardia requiring antitachycardia pacing and defibrillation by ICD. Assessment: Sustained ventricular tachycardia Elevated troponin Ischemic cardiomyopathy, Acute on chronic systolic heart failure, ejection fraction less than 20% CAD HTN HLD Plan: Today, patient was afebrile, 118/95, heart rate 67, 96% on mechanical ventilation with FiO2 of 50%, PEEP of 5 CBC today shows leukocytosis at 13.5, anemia of 10.4 which is down trending Basic metabolic panel shows hyponatremia to 129, bicarb of 20, BUN of 18, creatinine of 1.07 Liver function test showed total bilirubin of 4.5, AST of 332, ALT of 116, alkaline phosphatase 148 LDH is 2997 Magnesium is improved to 1.9 EKG shows sinus bradycardia with left axis deviation, poor R-wave progression in precordial leads Echocardiogram was reviewed, severely impaired left ventricular systolic function with segmental wall motion abnormality with an estimated ejection fraction of 20-25%, Impella device noted in left ventricle Cardiac catheterization report reviewed, patient had complicated course as outlined above, mid RCA was successfully PCI'd with drug-eluting stent and patient was subsequently sent to the intensive care unit intubated Continue heparin drip, monitor PTT for toxicity Continue mexiletine 150 mg 3 times a day Continue metoprolol 100 mg daily Regarding pressor support: Continue levophed, off titrate epinephrine as able, down titrate dobutamine as able Continue propofol, RASS goal is -1 to -3 Continue sublingual nitro when necessary Continue aspirin, statin, Lasix, losartan, spironolactone Patient is full code Objective - Vital Signs Vital signs: Vital Signs Temp 98.4 F 10/03/22 12:00 Pulse 67 10/03/22 13:15 Resp 25 H 10/03/22 13:15 BP 118/95 10/03/22 13:15 Pulse Ox 96 10/03/22 13:15 FiO2 50 10/03/22 13:00 Intake & Output 10/02/22 10/03/22 10/03/22 18:59 06:59 18:59 Intake Total 486 2228.605 1165.073 Output Total 125 318 670 Balance 361 1910.605 495.073 Weight 57.7 kg 61 kg Intake: IV 486 1550 780 0.9 125 875 250 Magnesium Sulfate-D5w Pmx 100 1 gm In Dextrose/Water 1 100ml.bag @ 100 mls/hr IVPB ONCE ONE Rx#: [id number] Sodium Chloride 0.9% 1, 225 425 180 000 ml @ 125 mls/hr IV . Q8H [facility] Rx#:[id number] Sodium Chloride 0.9% 500 250 250 ml 250 ml @ 999 mls/hr IV .Q16M [facility] Rx#:[id number] Intake, IV Titration 678.605 385.073 Amount DOBUTamine DRIP 500 mg In 165.311 Dextrose/Water 1 250ml. bag @ 5 MCG/KG/MIN 8.655 mls/hr IV .Q24H [facility] Rx#: [id number] EPINEPHrine 4 mg In 84.347 Dextrose 5% in Water 250 ml @ 0.1 MCG/KG/MIN 21. 638 mls/hr IV .[id number] [facility] Rx#:[id number] Heparin Sod,Pork in 0.45% 77.549 43.737 NaCl 25,000 unit In 0.45 % NaCl 1 250ml.bag @ 12 UNITS/KG/HR 6.924 mls/hr IV .Q24H [facility] Rx#: [id number] Norepinephrine 4 mg In 535.393 57.341 Sodium Chloride 0.9% 250 ml @ 0.03 MCG/KG/MIN 6. 595 mls/hr IV .Q24H [facility] Rx#:[id number] propofoL 1,000 mg In 65.663 34.337 Empty Bag 1 bag @ 15 MCG/ KG/MIN 5.193 mls/hr IV . [id number] [facility] Rx#:[id number] Output: Gastric Drainage 100 Urine 125 318 570 Other: Voiding Method Indwelling Catheter Indwelling Catheter Indwelling Catheter ABP, PAP, CO, CI - Last Documented Arterial Blood Pressure 120/94 - Labs CBC & Chem 7: 10/03/22 10:09 10/03/22 03:32 Labs: Abnormal Lab Results - Last 24 Hours (Table) 10/02/22 10/02/22 10/02/22 Range/Units 15:56 16:30 16:30 WBC (3.8-10.6) k/uL RBC 3.78 L (3.80-5.40) m/uL Hgb (11.4-16.0) gm/dL Hct (34.0-46.0) % Neutrophils # (1.3-7.7) k/uL Lymphocytes # 0.4 L (1.0-4.8) k/uL Monocytes # (0-1.0) k/uL PT 14.7 H (9.0-12.0) sec INR 1.5 H (<1.2) APTT 160.2 H* (22.0-30.0) sec ABG pH (7.35-7.45) ABG pCO2 (35-45) mmHg ABG pO2 (83-108) mmHg ABG HCO3 (21-25) mmol/L ABG O2 Saturation (94-97) % ABG Lactic Acid (0.5-1.6) mmol/L Sodium (137-145) mmol/L Chloride (98-107) mmol/L Carbon Dioxide (22-30) mmol/L BUN (7-17) mg/dL Creatinine (0.52-1.04) mg/dL Glucose (74-99) mg/dL POC Glucose (mg/dL) 214 H (70-110) mg/dL Plasma Lactic Acid Marek (0.7-2.0) mmol/L Calcium (8.4-10.2) mg/dL Total Bilirubin (0.2-1.3) mg/dL AST (14-36) U/L ALT (4-34) U/L Alkaline Phosphatase (38-126) U/L Lactate Dehydrogenase (120-246) U/L Total Protein (6.3-8.2) g/dL Albumin (3.5-5.0) g/dL 10/02/22 10/02/22 10/02/22 Range/Units 16:48 16:52 18:43 WBC (3.8-10.6) k/uL RBC (3.80-5.40) m/uL Hgb (11.4-16.0) gm/dL Hct (34.0-46.0) % Neutrophils # (1.3-7.7) k/uL Lymphocytes # (1.0-4.8) k/uL Monocytes # (0-1.0) k/uL PT (9.0-12.0) sec INR (<1.2) APTT (22.0-30.0) sec ABG pH 7.28 L (7.35-7.45) ABG pCO2 50 H (35-45) mmHg ABG pO2 (83-108) mmHg ABG HCO3 (21-25) mmol/L ABG O2 Saturation (94-97) % ABG Lactic Acid 2.5 H* (0.5-1.6) mmol/L Sodium 127 L (137-145) mmol/L Chloride 97 L (98-107) mmol/L Carbon Dioxide 20 L (22-30) mmol/L BUN (7-17) mg/dL Creatinine (0.52-1.04) mg/dL Glucose 193 H (74-99) mg/dL POC Glucose (mg/dL) (70-110) mg/dL Plasma Lactic Acid Marek (0.7-2.0) mmol/L Calcium 8.1 L (8.4-10.2) mg/dL Total Bilirubin (0.2-1.3) mg/dL AST (14-36) U/L ALT (4-34) U/L Alkaline Phosphatase (38-126) U/L Lactate Dehydrogenase (120-246) U/L Total Protein (6.3-8.2) g/dL Albumin (3.5-5.0) g/dL 10/02/22 10/02/22 10/02/22 Range/Units 19:36 20:10 21:32 WBC 11.1 H (3.8-10.6) k/uL RBC 3.54 L (3.80-5.40) m/uL Hgb 11.2 L (11.4-16.0) gm/dL Hct (34.0-46.0) % Neutrophils # 9.3 H (1.3-7.7) k/uL Lymphocytes # 0.8 L (1.0-4.8) k/uL Monocytes # (0-1.0) k/uL PT (9.0-12.0) sec INR (<1.2) APTT 58.1 H (22.0-30.0) sec ABG pH (7.35-7.45) ABG pCO2 (35-45) mmHg ABG pO2 (83-108) mmHg ABG HCO3 (21-25) mmol/L ABG O2 Saturation (94-97) % ABG Lactic Acid (0.5-1.6) mmol/L Sodium (137-145) mmol/L Chloride (98-107) mmol/L Carbon Dioxide (22-30) mmol/L BUN (7-17) mg/dL Creatinine (0.52-1.04) mg/dL Glucose (74-99) mg/dL POC Glucose (mg/dL) (70-110) mg/dL Plasma Lactic Acid Marek 2.1 H* (0.7-2.0) mmol/L Calcium (8.4-10.2) mg/dL Total Bilirubin (0.2-1.3) mg/dL AST (14-36) U/L ALT (4-34) U/L Alkaline Phosphatase (38-126) U/L Lactate Dehydrogenase (120-246) U/L Total Protein (6.3-8.2) g/dL Albumin (3.5-5.0) g/dL 10/02/22 10/03/22 10/03/22 Range/Units 23:36 01:04 03:32 WBC (3.8-10.6) k/uL RBC (3.80-5.40) m/uL Hgb (11.4-16.0) gm/dL Hct (34.0-46.0) % Neutrophils # (1.3-7.7) k/uL Lymphocytes # (1.0-4.8) k/uL Monocytes # (0-1.0) k/uL PT 13.2 H (9.0-12.0) sec INR 1.3 H (<1.2) APTT (22.0-30.0) sec ABG pH (7.35-7.45) ABG pCO2 (35-45) mmHg ABG pO2 (83-108) mmHg ABG HCO3 (21-25) mmol/L ABG O2 Saturation (94-97) % ABG Lactic Acid (0.5-1.6) mmol/L Sodium (137-145) mmol/L Chloride (98-107) mmol/L Carbon Dioxide (22-30) mmol/L BUN (7-17) mg/dL Creatinine (0.52-1.04) mg/dL Glucose (74-99) mg/dL POC Glucose (mg/dL) 187 H (70-110) mg/dL Plasma Lactic Acid Marek (0.7-2.0) mmol/L Calcium (8.4-10.2) mg/dL Total Bilirubin (0.2-1.3) mg/dL AST (14-36) U/L ALT (4-34) U/L Alkaline Phosphatase (38-126) U/L Lactate Dehydrogenase 1210 H (120-246) U/L Total Protein (6.3-8.2) g/dL Albumin (3.5-5.0) g/dL 10/03/22 10/03/22 10/03/22 Range/Units 03:32 03:32 05:04 WBC 12.9 H (3.8-10.6) k/uL RBC 3.25 L (3.80-5.40) m/uL Hgb 10.6 L (11.4-16.0) gm/dL Hct 31.6 L (34.0-46.0) % Neutrophils # 10.2 H (1.3-7.7) k/uL Lymphocytes # (1.0-4.8) k/uL Monocytes # 1.2 H (0-1.0) k/uL PT (9.0-12.0) sec INR (<1.2) APTT (22.0-30.0) sec ABG pH (7.35-7.45) ABG pCO2 (35-45) mmHg ABG pO2 165 H (83-108) mmHg ABG HCO3 19 L (21-25) mmol/L ABG O2 Saturation 99.3 H (94-97) % ABG Lactic Acid (0.5-1.6) mmol/L Sodium 129 L (137-145) mmol/L Chloride (98-107) mmol/L Carbon Dioxide 20 L (22-30) mmol/L BUN 18 H (7-17) mg/dL Creatinine 1.07 H (0.52-1.04) mg/dL Glucose 144 H (74-99) mg/dL POC Glucose (mg/dL) (70-110) mg/dL Plasma Lactic Acid Marek (0.7-2.0) mmol/L Calcium 7.9 L (8.4-10.2) mg/dL Total Bilirubin 4.5 H (0.2-1.3) mg/dL AST 332 H (14-36) U/L ALT 116 H (4-34) U/L Alkaline Phosphatase 148 H (38-126) U/L Lactate Dehydrogenase 1765 H (120-246) U/L Total Protein 5.7 L (6.3-8.2) g/dL Albumin 3.0 L (3.5-5.0) g/dL 10/03/22 10/03/22 10/03/22 Range/Units 06:12 10:09 10:09 WBC 13.5 H (3.8-10.6) k/uL RBC 3.33 L (3.80-5.40) m/uL Hgb 10.4 L (11.4-16.0) gm/dL Hct 32.2 L (34.0-46.0) % Neutrophils # (1.3-7.7) k/uL Lymphocytes # (1.0-4.8) k/uL Monocytes # (0-1.0) k/uL PT (9.0-12.0) sec INR (<1.2) APTT (22.0-30.0) sec ABG pH (7.35-7.45) ABG pCO2 (35-45) mmHg ABG pO2 (83-108) mmHg ABG HCO3 (21-25) mmol/L ABG O2 Saturation (94-97) % ABG Lactic Acid (0.5-1.6) mmol/L Sodium (137-145) mmol/L Chloride (98-107) mmol/L Carbon Dioxide (22-30) mmol/L BUN (7-17) mg/dL Creatinine (0.52-1.04) mg/dL Glucose (74-99) mg/dL POC Glucose (mg/dL) 168 H (70-110) mg/dL Plasma Lactic Acid Marek (0.7-2.0) mmol/L Calcium (8.4-10.2) mg/dL Total Bilirubin (0.2-1.3) mg/dL AST (14-36) U/L ALT (4-34) U/L Alkaline Phosphatase (38-126) U/L Lactate Dehydrogenase 2997 H (120-246) U/L Total Protein (6.3-8.2) g/dL Albumin (3.5-5.0) g/dL 10/03/22 10/03/22 Range/Units 10:09 12:03 WBC (3.8-10.6) k/uL RBC (3.80-5.40) m/uL Hgb (11.4-16.0) gm/dL Hct (34.0-46.0) % Neutrophils # (1.3-7.7) k/uL Lymphocytes # (1.0-4.8) k/uL Monocytes # (0-1.0) k/uL PT (9.0-12.0) sec INR (<1.2) APTT 34.4 H (22.0-30.0) sec ABG pH (7.35-7.45) ABG pCO2 (35-45) mmHg ABG pO2 (83-108) mmHg ABG HCO3 (21-25) mmol/L ABG O2 Saturation (94-97) % ABG Lactic Acid (0.5-1.6) mmol/L Sodium (137-145) mmol/L Chloride (98-107) mmol/L Carbon Dioxide (22-30) mmol/L BUN (7-17) mg/dL Creatinine (0.52-1.04) mg/dL Glucose (74-99) mg/dL POC Glucose (mg/dL) 154 H (70-110) mg/dL Plasma Lactic Acid Marek (0.7-2.0) mmol/L Calcium (8.4-10.2) mg/dL Total Bilirubin (0.2-1.3) mg/dL AST (14-36) U/L ALT (4-34) U/L Alkaline Phosphatase (38-126) U/L Lactate Dehydrogenase (120-246) U/L Total Protein (6.3-8.2) g/dL Albumin (3.5-5.0) g/dL
[2022-10-03] MEDS ORDERED: METOPROLOL TARTRATE 25 MG TAB PO SCH (14:30)
[2022-10-03] MEDS: METOPROLOL TARTRATE 12.5 MG TAB PO SCH ×2 (14:38→21:15)
[2022-10-03 17:04] LABS: Glucose,Whole Blood 148 mg/dL (70-110)
[2022-10-03] MEDS: SODIUM BICARB (1 MEQ/ML) 12.5 ML in DEXTROSE 5% IN WATER 500 ML IV SCH ×2 (17:40)
[2022-10-03] MEDS: HEPARIN SOD,PORK IN 0.45% NACL 25,000 UNIT in 0.45% NACL 1 250ML.BAG IV SCH (20:11)
[2022-10-03] MEDS: DOBUTamine DRIP 500 MG in DEXTROSE/WATER 1 250ML.BAG IV SCH (20:12)
[2022-10-03] MEDS: EPINEPHrine 4 MG in DEXTROSE 5% IN WATER 250 ML IV SCH ×4 (20:12→21:05)
[2022-10-03 20:49] LABS: Partial Thromboplastin Time 83.5 sec (22.0-30.0)
[2022-10-03] MEDS: ATORVASTATIN 80 MG TAB PO SCH (21:15)
[2022-10-04] LABS: Glucose,Whole Blood 127 mg/dL (70-110)
[2022-10-04] MEDS: IPRATROPIUM-ALBUTEROL 3 ML NEB INHALATION SCH ×6 (01:12→20:42)
[2022-10-04 04:17] LABS: Basophils % (A) 0 %; Eosinophils % (A) 0 %; HCT 31.2 % (34.0-46.0); HGB 10.2 gm/dL (11.4-16.0); Hypochromasia Slight; Lymphocytes # (A) 1.2 k/uL (1.0-4.8); Lymphocytes % (A) 7 %; MCH 31.1 pg (25.0-35.0); MCHC 32.6 g/dL (31.0-37.0); MCV 95.2 fL (80.0-100.0); Mean Platelet Volume 10.2; Monocytes # (A) 0.7 k/uL (0-1.0); Monocytes % (A) 4 %; Neutrophils % (A) 87 %; Platelet Count 171 k/uL (150-450); RBC 3.28 m/uL (3.80-5.40); RDW 15.1 % (11.5-15.5); WBC 18.3 k/uL (3.8-10.6)
[2022-10-04 04:28] LABS: Calcium 7.9 mg/dL (8.4-10.2)
[2022-10-04] MEDS ORDERED: Potassium Replacement Protocol 1 EACH MISC MISCELLANE PRN (05:27)
[2022-10-04 05:53] LABS: Glucose,Whole Blood 134 mg/dL (70-110)
[2022-10-04 06:17] LABS: Magnesium 1.8 mg/dL (1.6-2.3)
[2022-10-04] MEDS: POTASSIUM CHLORIDE 10 MEQ in WATER FOR INJECTION 1 100ML.BAG IVPB SCH ×4 (06:19→11:30)
[2022-10-04 06:46] LABS: ABG Base Excess 0.1 mmol/L; ABG HCO3 23 mmol/L (21-25); ABG PCO2 31 mmHg (35-45); ABG PH 7.48 (7.35-7.45); ABG PO2 213 mmHg (83-108); ABG TCO2 14 mmol/L (19-24); Allen Test Performed? Yes
--- NOTE | 2022-10-04 07:57 | XR ---
EXAMINATION TYPE: XR chest 1V portable DATE OF EXAM: 10/04/2022 6:41 AM COMPARISON: Chest radiograph from one day prior. TECHNIQUE: XR chest 1V portable Frontal view of the chest. CLINICAL INDICATION:Female, 77 years old with history of Tube placement; FINDINGS: Lungs/Pleura: Increased interstitial lung markings of the lungs. There is flattening of the diaphragm with increased lucency of the lungs. No evidence of pneumothorax, pleural effusion or focal consolid ation. Pulmonary vascularity: Unremarkable. Heart/mediastinum: Cardiomediastinal silhouette is enlarged and stable. Two lead cardiac conduction d evice overlying the left hemithorax with lead tips projecting over the right ventricle and right atri um. Musculoskeletal: No acute osseous pathology. Midline sternotomy wires are noted. Other findings: None Lines/Tubes: Endotracheal tube with distal tip 3.2 cm above the charlie. Nasogastric tube with its distal tip and side-port projecting under the diaphragm. Left ventricular assist device appears in stable and appropriate position. IMPRESSION: 1. Similar COPD in cardiomegaly. Mild interstitial prominence is unchanged. 2. Stable support tubes and left ventricular assist device.
[2022-10-04] MEDS: EPINEPHrine 4 MG in DEXTROSE 5% IN WATER 250 ML IV SCH ×2 (08:08)
[2022-10-04] MEDS: CHLORHEXIDINE GLUCONATE 15 ML CUP MUCOUS MEM SCH ×2 (08:10→20:01)
[2022-10-04] MEDS: METOPROLOL TARTRATE 12.5 MG TAB PO SCH ×2 (08:11→21:59)
[2022-10-04] MEDS: HEPARIN SOD,PORK IN 0.45% NACL 25,000 UNIT in 0.45% NACL 1 250ML.BAG IV SCH ×2 (08:11→11:46)
[2022-10-04] MEDS: CLOPIDOGREL 75 MG TAB PO SCH (08:11)
[2022-10-04] MEDS: allopurinoL 100 MG TAB PO SCH (08:11)
[2022-10-04] MEDS: ASPIRIN 81 MG PO SCH (08:11)
[2022-10-04] MEDS: PANTOPRAZOLE 40 MG/10 ML VIAL IVP SCH (08:11)
[2022-10-04] MEDS: SPIRONOLACTONE 25 MG TAB PO SCH (08:11)
[2022-10-04] MEDS: FUROSEMIDE 10 MG/ML 2 ML VIAL IV SCH ×2 (08:12→20:01)
--- NOTE | 2022-10-04 08:39 | P.PN ---
Subjective Progress Note Date: 10/04/22 Pt is doing better today, off of all pressors and inotropes. Still on mechanical support with Impella, but P reduced to 7 from 9 yesterday. Still having evidence of hemolysis on labs and in urine. Gen: awake, alert HEENT: normocephalic, atraumatic, good hearing acuity, moist mucous membranes Resp: good air exchange, breathing comfortably with no accessory muscle use CVS: good distal perfusion x 4, GI: soft, NTTP, ND : no SPT, no CVAT, hamlin catheter not present MSK: no pitting edema, no clubbing Neuro: non-focal, moving all extremities Psych: cooperative, euthymic mood Hospital Course: 77-year-old female with past medical history of ICMP with LVEF <20% s/p ICD presented to the ED due to sudden episodes of ICD firing. In the emergency room, patient was afebrile, 124/86, heart rate 141, 98% on 2 L nasal cannula. CBC demonstrated mild leukocytosis 12.2. His metabolic panel is unremarkable. Magnesium was low at 1.1. Liver function test showed total bilirubin of 1.7, AST 55, ALT of 67, alkaline phosphatase at 233. Troponin was 0.0269 trended up 0.183 degenerative 0.255. BNP was 4920. TSH was 2.87. Coags showed INR 1.2. EKG demonstrated sinus tachycardia with occasional PVCs, left axis deviation. Chest x-ray shows cardiomegaly with left atrial enlargement, increased pulmonary vascularity with mild pleural effusion on the right and left consistent with heart failure exacerbation. Case was discussed with the emergency room physician and decision was made to with the patient inpatient status for evaluation by cardiology for the same ventricular tachycardia requiring a ntitachycardia pacing and defibrillation by ICD. Assessment: Sustained ventricular tachycardia Elevated troponin Ischemic cardiomyopathy, Acute on chronic systolic heart failure, ejection fraction less than 20% CAD HTN HLD Plan: Today, patient was afebrile, 127/88, 98, 96% on mechanical ventilation FIO2 40%, PEEP 5. CBC today shows leukocytosis at 18.3, anemia of 10.2 which is stable from Basic metabolic panel shows hyponatremia to 130, K 3.0, bicarb of 22, BUN of 26, creatinine of 1.43 LDH is 4609 Magnesium is 1.8 CXR personally interpreted, shows mostly clear parencyma bilaterally, Continue heparin drip, monitor PTT for toxicity Holding mexiletine 150 mg 3 times a day Metoprolol of 12.5mg BID Continue propofol, RASS goal is -1 to -3 Pull out Impella today if able and agreed to by cardiology Continue sublingual nitro when necessary Continue aspirin, statin, Lasix, losartan, spironolactone Patient is full code Objective - Vital Signs Vital signs: Vital Signs Temp 99 F 10/04/22 08:00 Pulse 90 10/04/22 08:27 Resp 20 10/04/22 08:15 BP 127/88 10/04/22 08:15 Pulse Ox 96 10/04/22 08:15 FiO2 40 10/04/22 08:23 Intake & Output 10/03/22 10/04/22 10/04/22 18:59 06:59 18:59 Intake Total 1370.439 872.910 80 Output Total 1170 1665 250 Balance 200.439 -792.090 -170 Weight 61 kg 61.1 kg Intake: IV 980 580 80 0.9 125 250 Magnesium Sulfate-D5w Pmx 100 1 gm In Dextrose/Water 1 100ml.bag @ 100 mls/hr IVPB ONCE ONE Rx#: [id number] Sodium Chloride 0.9% 1, 180 000 ml @ 125 mls/hr IV . Q8H [facility] Rx#:[id number] Sodium Chloride 0.9% 500 250 ml 250 ml @ 999 mls/hr IV .Q16M [facility] Rx#:[id number] Sodium Chloride 0.9% 500 200 480 80 ml 500 ml @ 20 mls/hr IV .Q24H [facility] Rx#:[id number] ceFAZolin 1,000 mg In 100 Sodium Chloride 0.9% 50 ml @ 100 mls/hr IVPB Q6HR [facility] Rx#:[id number] Intake, IV Titration 390.439 292.910 Amount DOBUTamine DRIP 500 mg In 170.677 Dextrose/Water 1 250ml. bag @ 5 MCG/KG/MIN 8.655 mls/hr IV .Q24H [facility] Rx#: [id number] EPINEPHrine 4 mg In 84.347 Dextrose 5% in Water 250 ml @ 0.1 MCG/KG/MIN 21. 638 mls/hr IV .[id number] [facility] Rx#:[id number] Heparin Sod,Pork in 0.45% 43.737 128.714 NaCl 25,000 unit In 0.45 % NaCl 1 250ml.bag @ 12 UNITS/KG/HR 6.924 mls/hr IV .Q24H [facility] Rx#: [id number] Norepinephrine 4 mg In 57.341 Sodium Chloride 0.9% 250 ml @ 0.03 MCG/KG/MIN 6. 595 mls/hr IV .Q24H [facility] Rx#:[id number] propofoL 1,000 mg In 34.337 164.196 Empty Bag 1 bag @ 15 MCG/ KG/MIN 5.193 mls/hr IV . [id number] [facility] Rx#:[id number] Output: Gastric Drainage 100 Urine 1070 1665 250 Other: Voiding Method Indwelling Catheter Indwelling Catheter ABP, PAP, CO, CI - Last Documented Arterial Blood Pressure 141/80 - Labs CBC & Chem 7: 10/04/22 03:35 10/04/22 03:35 Labs: Abnormal Lab Results - Last 24 Hours (Table) 10/03/22 10/03/22 10/03/22 Range/Units 10:09 10:09 10:09 WBC 13.5 H (3.8-10.6) k/uL RBC 3.33 L (3.80-5.40) m/uL Hgb 10.4 L (11.4-16.0) gm/dL Hct 32.2 L (34.0-46.0) % Neutrophils # (1.3-7.7) k/uL APTT 34.4 H (22.0-30.0) sec ABG pH (7.35-7.45) ABG pCO2 (35-45) mmHg ABG pO2 (83-108) mmHg ABG Total CO2 (19-24) mmol/L ABG O2 Saturation (94-97) % Sodium (137-145) mmol/L Potassium (3.5-5.1) mmol/L BUN (7-17) mg/dL Creatinine (0.52-1.04) mg/dL Glucose (74-99) mg/dL POC Glucose (mg/dL) (70-110) mg/dL Calcium (8.4-10.2) mg/dL Lactate Dehydrogenase 2997 H (120-246) U/L 10/03/22 10/03/22 10/03/22 Range/Units 12:03 17:03 19:01 WBC (3.8-10.6) k/uL RBC (3.80-5.40) m/uL Hgb (11.4-16.0) gm/dL Hct (34.0-46.0) % Neutrophils # (1.3-7.7) k/uL APTT 83.5 H (22.0-30.0) sec ABG pH (7.35-7.45) ABG pCO2 (35-45) mmHg ABG pO2 (83-108) mmHg ABG Total CO2 (19-24) mmol/L ABG O2 Saturation (94-97) % Sodium (137-145) mmol/L Potassium (3.5-5.1) mmol/L BUN (7-17) mg/dL Creatinine (0.52-1.04) mg/dL Glucose (74-99) mg/dL POC Glucose (mg/dL) 154 H 148 H (70-110) mg/dL Calcium (8.4-10.2) mg/dL Lactate Dehydrogenase (120-246) U/L 10/03/22 10/03/22 10/04/22 Range/Units 19:01 23:58 03:00 WBC (3.8-10.6) k/uL RBC (3.80-5.40) m/uL Hgb (11.4-16.0) gm/dL Hct (34.0-46.0) % Neutrophils # (1.3-7.7) k/uL APTT (22.0-30.0) sec ABG pH (7.35-7.45) ABG pCO2 (35-45) mmHg ABG pO2 (83-108) mmHg ABG Total CO2 (19-24) mmol/L ABG O2 Saturation (94-97) % Sodium (137-145) mmol/L Potassium (3.5-5.1) mmol/L BUN (7-17) mg/dL Creatinine (0.52-1.04) mg/dL Glucose (74-99) mg/dL POC Glucose (mg/dL) 127 H (70-110) mg/dL Calcium (8.4-10.2) mg/dL Lactate Dehydrogenase 4141 H 4609 H (120-246) U/L 10/04/22 10/04/22 10/04/22 Range/Units 03:00 03:35 03:35 WBC 18.3 H (3.8-10.6) k/uL RBC 3.28 L (3.80-5.40) m/uL Hgb 10.2 L (11.4-16.0) gm/dL Hct 31.2 L (34.0-46.0) % Neutrophils # 16.0 H (1.3-7.7) k/uL APTT 86.7 H (22.0-30.0) sec ABG pH (7.35-7.45) ABG pCO2 (35-45) mmHg ABG pO2 (83-108) mmHg ABG Total CO2 (19-24) mmol/L ABG O2 Saturation (94-97) % Sodium 130 L (137-145) mmol/L Potassium 3.0 L (3.5-5.1) mmol/L BUN 26 H (7-17) mg/dL Creatinine 1.43 H (0.52-1.04) mg/dL Glucose 116 H (74-99) mg/dL POC Glucose (mg/dL) (70-110) mg/dL Calcium 7.9 L (8.4-10.2) mg/dL Lactate Dehydrogenase (120-246) U/L 10/04/22 10/04/22 Range/Units 05:52 05:53 WBC (3.8-10.6) k/uL RBC (3.80-5.40) m/uL Hgb (11.4-16.0) gm/dL Hct (34.0-46.0) % Neutrophils # (1.3-7.7) k/uL APTT (22.0-30.0) sec ABG pH 7.48 H (7.35-7.45) ABG pCO2 31 L (35-45) mmHg ABG pO2 213 H (83-108) mmHg ABG Total CO2 14 L (19-24) mmol/L ABG O2 Saturation 100.0 H (94-97) % Sodium (137-145) mmol/L Potassium (3.5-5.1) mmol/L BUN (7-17) mg/dL Creatinine (0.52-1.04) mg/dL Glucose (74-99) mg/dL POC Glucose (mg/dL) 134 H (70-110) mg/dL Calcium (8.4-10.2) mg/dL Lactate Dehydrogenase (120-246) U/L Microbiology - Last 24 Hours (Table) 10/03/22 08:32 Gram Stain - Preliminary Sputum Sputum Culture - Preliminary
--- NOTE | 2022-10-04 09:10 | P.PN ---
Subjective Progress Note Date: 10/04/22 PROGRESS NOTE The patient is a 77-year-old female with known history of severe ischemic cardiomyopathy, status post ICD implantation and chronically occluded LAD who presented with non-STEMI and underwent stenting of the RCA with Impella report. She is intubated and sedated. Her blood pressure is stable. She has some oozing from the site of her catheter on the left side. Her urinary output has been stable. She is in sinus mechanism and there is no evidence of malignant arrhythmia. She remained sedated. Her echocardiogram showed severely impaired systolic function with segmental wall motion abnormality. Her ejection fraction is 20-25% with severe mitral regurgitation. Medications: Aspirin, Lipitor 80 mg daily, Plavix 75 mg daily, IV heparin, metoprolol tartrate 12.5 mg twice a day, Protonix, Aldactone 25 mg daily PHYSICAL EXAMINATION: Blood pressure 127/80 heart rate 90, intubated and sedated LUNGS: Clear to auscultation HEART: Regular rate and rhythm, S1, S2. No S3. systolic ejection murmur and holosystolic murmur ABDOMEN: Soft, nontender, no organomegaly EXTREMETIES: No edema, mild oozing around the sheath in the left groin. Right groin no hematoma LAB: WBC 18.3, hemoglobin 10.2. Fibrinogen 383. Potassium 3.0. BUN 26, creatinine 1.43. LDH 4609. IMPRESSION: 1. Status post non-STEMI and stenting of the RCA 2. Status post Impella catheter 3. Severe ischemic cardiomyopathy 4. Respiratory failure 5. Worsening renal function PLAN: 1. We support catheter and if stable remove today 2. Adjust beta ricardo dose according to blood pressure 3. Follow her renal functions 4. Assess neurological status when stable 5. Depending on her progress further recommendations will be made 6. Prognosis remains guarded Objective - Vital Signs Vital signs: Vital Signs Temp 99 F 10/04/22 08:00 Pulse 90 10/04/22 08:37 Resp 20 10/04/22 08:15 BP 127/88 10/04/22 08:15 Pulse Ox 96 10/04/22 08:15 FiO2 40 10/04/22 08:23 Intake & Output 10/03/22 10/04/22 10/04/22 18:59 06:59 18:59 Intake Total 1370.439 872.910 80 Output Total 1170 1665 250 Balance 200.439 -792.090 -170 Weight 61 kg 61.1 kg Intake: IV 980 580 80 0.9 125 250 Magnesium Sulfate-D5w Pmx 100 1 gm In Dextrose/Water 1 100ml.bag @ 100 mls/hr IVPB ONCE ONE Rx#: [id number] Sodium Chloride 0.9% 1, 180 000 ml @ 125 mls/hr IV . Q8H [facility] Rx#:[id number] Sodium Chloride 0.9% 500 250 ml 250 ml @ 999 mls/hr IV .Q16M [facility] Rx#:[id number] Sodium Chloride 0.9% 500 200 480 80 ml 500 ml @ 20 mls/hr IV .Q24H [facility] Rx#:[id number] ceFAZolin 1,000 mg In 100 Sodium Chloride 0.9% 50 ml @ 100 mls/hr IVPB Q6HR [facility] Rx#:[id number] Intake, IV Titration 390.439 292.910 Amount DOBUTamine DRIP 500 mg In 170.677 Dextrose/Water 1 250ml. bag @ 5 MCG/KG/MIN 8.655 mls/hr IV .Q24H [facility] Rx#: [id number] EPINEPHrine 4 mg In 84.347 Dextrose 5% in Water 250 ml @ 0.1 MCG/KG/MIN 21. 638 mls/hr IV .[id number] [facility] Rx#:[id number] Heparin Sod,Pork in 0.45% 43.737 128.714 NaCl 25,000 unit In 0.45 % NaCl 1 250ml.bag @ 12 UNITS/KG/HR 6.924 mls/hr IV .Q24H [facility] Rx#: [id number] Norepinephrine 4 mg In 57.341 Sodium Chloride 0.9% 250 ml @ 0.03 MCG/KG/MIN 6. 595 mls/hr IV .Q24H [facility] Rx#:[id number] propofoL 1,000 mg In 34.337 164.196 Empty Bag 1 bag @ 15 MCG/ KG/MIN 5.193 mls/hr IV . [id number] [facility] Rx#:[id number] Output: Gastric Drainage 100 Urine 1070 1665 250 Other: Voiding Method Indwelling Catheter Indwelling Catheter ABP, PAP, CO, CI - Last Documented Arterial Blood Pressure 141/80 - Labs CBC & Chem 7: 10/04/22 03:35 10/04/22 03:35 Labs: Abnormal Lab Results - Last 24 Hours (Table) 10/03/22 10/03/22 10/03/22 Range/Units 10:09 10:09 10:09 WBC 13.5 H (3.8-10.6) k/uL RBC 3.33 L (3.80-5.40) m/uL Hgb 10.4 L (11.4-16.0) gm/dL Hct 32.2 L (34.0-46.0) % Neutrophils # (1.3-7.7) k/uL APTT 34.4 H (22.0-30.0) sec ABG pH (7.35-7.45) ABG pCO2 (35-45) mmHg ABG pO2 (83-108) mmHg ABG Total CO2 (19-24) mmol/L ABG O2 Saturation (94-97) % Sodium (137-145) mmol/L Potassium (3.5-5.1) mmol/L BUN (7-17) mg/dL Creatinine (0.52-1.04) mg/dL Glucose (74-99) mg/dL POC Glucose (mg/dL) (70-110) mg/dL Calcium (8.4-10.2) mg/dL Lactate Dehydrogenase 2997 H (120-246) U/L 10/03/22 10/03/22 10/03/22 Range/Units 12:03 17:03 19:01 WBC (3.8-10.6) k/uL RBC (3.80-5.40) m/uL Hgb (11.4-16.0) gm/dL Hct (34.0-46.0) % Neutrophils # (1.3-7.7) k/uL APTT 83.5 H (22.0-30.0) sec ABG pH (7.35-7.45) ABG pCO2 (35-45) mmHg ABG pO2 (83-108) mmHg ABG Total CO2 (19-24) mmol/L ABG O2 Saturation (94-97) % Sodium (137-145) mmol/L Potassium (3.5-5.1) mmol/L BUN (7-17) mg/dL Creatinine (0.52-1.04) mg/dL Glucose (74-99) mg/dL POC Glucose (mg/dL) 154 H 148 H (70-110) mg/dL Calcium (8.4-10.2) mg/dL Lactate Dehydrogenase (120-246) U/L 10/03/22 10/03/22 10/04/22 Range/Units 19:01 23:58 03:00 WBC (3.8-10.6) k/uL RBC (3.80-5.40) m/uL Hgb (11.4-16.0) gm/dL Hct (34.0-46.0) % Neutrophils # (1.3-7.7) k/uL APTT (22.0-30.0) sec ABG pH (7.35-7.45) ABG pCO2 (35-45) mmHg ABG pO2 (83-108) mmHg ABG Total CO2 (19-24) mmol/L ABG O2 Saturation (94-97) % Sodium (137-145) mmol/L Potassium (3.5-5.1) mmol/L BUN (7-17) mg/dL Creatinine (0.52-1.04) mg/dL Glucose (74-99) mg/dL POC Glucose (mg/dL) 127 H (70-110) mg/dL Calcium (8.4-10.2) mg/dL Lactate Dehydrogenase 4141 H 4609 H (120-246) U/L 10/04/22 10/04/22 10/04/22 Range/Units 03:00 03:35 03:35 WBC 18.3 H (3.8-10.6) k/uL RBC 3.28 L (3.80-5.40) m/uL Hgb 10.2 L (11.4-16.0) gm/dL Hct 31.2 L (34.0-46.0) % Neutrophils # 16.0 H (1.3-7.7) k/uL APTT 86.7 H (22.0-30.0) sec ABG pH (7.35-7.45) ABG pCO2 (35-45) mmHg ABG pO2 (83-108) mmHg ABG Total CO2 (19-24) mmol/L ABG O2 Saturation (94-97) % Sodium 130 L (137-145) mmol/L Potassium 3.0 L (3.5-5.1) mmol/L BUN 26 H (7-17) mg/dL Creatinine 1.43 H (0.52-1.04) mg/dL Glucose 116 H (74-99) mg/dL POC Glucose (mg/dL) (70-110) mg/dL Calcium 7.9 L (8.4-10.2) mg/dL Lactate Dehydrogenase (120-246) U/L 10/04/22 10/04/22 Range/Units 05:52 05:53 WBC (3.8-10.6) k/uL RBC (3.80-5.40) m/uL Hgb (11.4-16.0) gm/dL Hct (34.0-46.0) % Neutrophils # (1.3-7.7) k/uL APTT (22.0-30.0) sec ABG pH 7.48 H (7.35-7.45) ABG pCO2 31 L (35-45) mmHg ABG pO2 213 H (83-108) mmHg ABG Total CO2 14 L (19-24) mmol/L ABG O2 Saturation 100.0 H (94-97) % Sodium (137-145) mmol/L Potassium (3.5-5.1) mmol/L BUN (7-17) mg/dL Creatinine (0.52-1.04) mg/dL Glucose (74-99) mg/dL POC Glucose (mg/dL) 134 H (70-110) mg/dL Calcium (8.4-10.2) mg/dL Lactate Dehydrogenase (120-246) U/L Microbiology - Last 24 Hours (Table) 10/03/22 08:32 Gram Stain - Preliminary Sputum Sputum Culture - Preliminary
--- NOTE | 2022-10-04 09:12 | P.PN ---
Subjective Progress Note Date: 10/04/22 Principal diagnosis: Respiratory failure. Pulmonary/critical care consult dated 10/02/2022. 77-year-old female with a history of ischemic cardiomyopathy, hypertension, and ICD, who presented to the emergency department at 8:15 PM, on October 01. The patient states that her device went off 4 times at home. She apparently was not having any chest pain or shortness of breath at that time. The patient does follow with cardiology, and denied all symptoms including nausea, vomiting, and shortness of breath. She did apparently had some swelling to the lower extremities. She does have chronic hypoxemic respiratory failure and does use oxygen at home at 2 L. The patient ended up going to the catheterization laboratory today, and had a stent placed in the right coronary artery. While in the catheterization laboratory, she developed harder pulmonary rest, was resuscitated, intubated, and had a Impella device inserted. I was called by cardiology about her, and I met her in the intensive care unit, room 266. The patient is currently on the ventilator, assist control mode, rate 12, tidal volume 375, 100%, PEEP of 5. Gases are currently pending. The patient's on heparin, the overweight based protocol, norepinephrine at 12 mcg/m, amiodarone at 1 mg/m, propofol at 25 mcg/kg/m, 0.9 at 75 mL an hour, and dobutamine at 5 mcg/kg/m. I placed a right femoral triple-lumen catheter for additional IV access. Arterial blood gases are currently pending. Chest x-rays pending. The patient was seen and examined. Current laboratory data includes a white count 6.4, hemoglobin 12.6, hematocrit 39.9, and a platelet count that was normal. Coagulation studies were normal. Sodium 135, potassium 3.5, chlorides 95, CO2 29, anion gap 11, BUN 15, creatinine 0.59. N-terminal proBNP was 4920. Troponins were 0.026, 0.183, and 0.255. Her chest x-ray on admission shows cardiomegaly, her AICD device, and mild pulmonary vascular congestion with small bilateral pleural effusions. Progress note dated 10/03/2022. 77-year-old female who was seen in consultation yesterday. Please see the note above. The patient had a episode of cardiopulmonary arrest, and the catheterization laboratory, when she was having a stent placed in the right coronary artery. The patient was intubated, and an Impella device was placed. She was seen today in the intensive care unit. She remains on the volume assist control, rate 20, tidal volume 375, FiO2 50%, with 10. Arterial blood gases show pO2 165, pCO2 35, and pH of 7.37. Patient is on saline at 20 mL an hour, propofol at 30 mcg/kg/m, norepinephrine at 1 mcg/m, heparin via weightbase protocol, epinephrine at 2 mcg/m, and dobutamine at 5 mcg/kg/m. White count 13.5, hemoglobin 10.4, hematocrit 32.2, and platelet count 163,000. PTT is 34.4. Sodium 129, potassium 4.1, chlorides 98, CO2 20, anion gap 11, BUN 18, creatinine 1.07. Bilirubin 4.5, AST 332, ALT 116, and LDH 1765. Chest x-ray shows no evidence of significant consolidation, pleural effusion, or pneumothorax. Progress note dated 10/04/2022. 77-year-old female seen in consultation, on October 02. Please see my consultative note, and my progress note from yesterday. Currently, the patient remains in the intensive care unit, room 266. She remains on mechanical ventilator, volume assist control, rate 20, tidal volume 375, FiO2 40%, and PEEP of 5. Blood gases show pO2 213, pCO2 31, and a pH of 7.48. Blood gases were done on 50%. FiO2 was reduced down to 40%. She remains on propofol at 25 mcg/kg/m, heparin via weightbase protocol, and saline at 40 mL an hour. We will have dietary come up with a formulation for tube feeds. White count 18.3, hemoglobin 10.2, hematocrit 31.2, and a platelet count of 171,000. Sodium 130, potassium 3, chlorides 98, CO2 22, anion gap 10, BUN 26, creatinine 1.43. Chest x-ray shows changes of cardiomegaly, and some mild interstitial changes. Objective - Vital Signs Vital signs: Vital Signs Temp 99 F 10/04/22 08:00 Pulse 90 10/04/22 08:37 Resp 20 10/04/22 08:15 BP 127/88 10/04/22 08:15 Pulse Ox 96 10/04/22 08:15 FiO2 40 10/04/22 08:23 Intake & Output 10/03/22 10/04/22 10/04/22 18:59 06:59 18:59 Intake Total 1370.439 872.910 380 Output Total 1170 1665 575 Balance 200.439 -792.090 -195 Weight 61 kg 61.1 kg Intake: IV 980 580 320 0.9 125 250 Magnesium Sulfate-D5w Pmx 100 1 gm In Dextrose/Water 1 100ml.bag @ 100 mls/hr IVPB ONCE ONE Rx#: [id number] Potassium Chloride 10 meq 200 In Water For Injection 1 100ml.bag @ 100 mls/hr IVPB Q1HR [facility] Rx#: [id number] Sodium Chloride 0.9% 1, 180 000 ml @ 125 mls/hr IV . Q8H [facility] Rx#:[id number] Sodium Chloride 0.9% 500 250 ml 250 ml @ 999 mls/hr IV .Q16M [facility] Rx#:[id number] Sodium Chloride 0.9% 500 200 480 120 ml 500 ml @ 20 mls/hr IV .Q24H [facility] Rx#:[id number] ceFAZolin 1,000 mg In 100 Sodium Chloride 0.9% 50 ml @ 100 mls/hr IVPB Q6HR [facility] Rx#:[id number] Intake, IV Titration 390.439 292.910 Amount DOBUTamine DRIP 500 mg In 170.677 Dextrose/Water 1 250ml. bag @ 5 MCG/KG/MIN 8.655 mls/hr IV .Q24H [facility] Rx#: [id number] EPINEPHrine 4 mg In 84.347 Dextrose 5% in Water 250 ml @ 0.1 MCG/KG/MIN 21. 638 mls/hr IV .[id number] [facility] Rx#:[id number] Heparin Sod,Pork in 0.45% 43.737 128.714 NaCl 25,000 unit In 0.45 % NaCl 1 250ml.bag @ 12 UNITS/KG/HR 6.924 mls/hr IV .Q24H [facility] Rx#: [id number] Norepinephrine 4 mg In 57.341 Sodium Chloride 0.9% 250 ml @ 0.03 MCG/KG/MIN 6. 595 mls/hr IV .Q24H [facility] Rx#:[id number] propofoL 1,000 mg In 34.337 164.196 Empty Bag 1 bag @ 15 MCG/ KG/MIN 5.193 mls/hr IV . [id number] [facility] Rx#:[id number] Other 60 Output: Gastric Drainage 100 Urine 1070 1665 575 Other: Voiding Method Indwelling Catheter Indwelling Catheter ABP, PAP, CO, CI - Last Documented Arterial Blood Pressure 141/80 - Exam No acute distress, sedated, with an orally placed endotracheal tube. HEENT examination is grossly unremarkable. Neck supple. Full range of motion. No adenopathy thyromegaly or neck vein distention. Cardiovascular examination reveals regular rhythm rate. S1-S2 normal. No S3 or S4. No discernible murmur noted. Heart sounds are distant. Heart rate 90 bpm. Lungs reveal mild scattered rhonchi. No wheezes. No distinct crackles. Breath sounds are improved compared to yesterday's examination. Breath sounds equal bilaterally. Saturations are 96%. Abdomen soft, without bowel sounds. No masses. Extremities are intact. No cyanosis clubbing or edema. Skin is without rash or lesion. Neurologic examination cannot be assessed. - Labs CBC & Chem 7: 10/04/22 03:35 10/04/22 03:35 Labs: Abnormal Lab Results - Last 24 Hours (Table) 10/03/22 10/03/22 10/03/22 Range/Units 10:09 10:09 10:09 WBC 13.5 H (3.8-10.6) k/uL RBC 3.33 L (3.80-5.40) m/uL Hgb 10.4 L (11.4-16.0) gm/dL Hct 32.2 L (34.0-46.0) % Neutrophils # (1.3-7.7) k/uL APTT 34.4 H (22.0-30.0) sec ABG pH (7.35-7.45) ABG pCO2 (35-45) mmHg ABG pO2 (83-108) mmHg ABG Total CO2 (19-24) mmol/L ABG O2 Saturation (94-97) % Sodium (137-145) mmol/L Potassium (3.5-5.1) mmol/L BUN (7-17) mg/dL Creatinine (0.52-1.04) mg/dL Glucose (74-99) mg/dL POC Glucose (mg/dL) (70-110) mg/dL Calcium (8.4-10.2) mg/dL Lactate Dehydrogenase 2997 H (120-246) U/L 10/03/22 10/03/22 10/03/22 Range/Units 12:03 17:03 19:01 WBC (3.8-10.6) k/uL RBC (3.80-5.40) m/uL Hgb (11.4-16.0) gm/dL Hct (34.0-46.0) % Neutrophils # (1.3-7.7) k/uL APTT 83.5 H (22.0-30.0) sec ABG pH (7.35-7.45) ABG pCO2 (35-45) mmHg ABG pO2 (83-108) mmHg ABG Total CO2 (19-24) mmol/L ABG O2 Saturation (94-97) % Sodium (137-145) mmol/L Potassium (3.5-5.1) mmol/L BUN (7-17) mg/dL Creatinine (0.52-1.04) mg/dL Glucose (74-99) mg/dL POC Glucose (mg/dL) 154 H 148 H (70-110) mg/dL Calcium (8.4-10.2) mg/dL Lactate Dehydrogenase (120-246) U/L 10/03/22 10/03/22 10/04/22 Range/Units 19:01 23:58 03:00 WBC (3.8-10.6) k/uL RBC (3.80-5.40) m/uL Hgb (11.4-16.0) gm/dL Hct (34.0-46.0) % Neutrophils # (1.3-7.7) k/uL APTT (22.0-30.0) sec ABG pH (7.35-7.45) ABG pCO2 (35-45) mmHg ABG pO2 (83-108) mmHg ABG Total CO2 (19-24) mmol/L ABG O2 Saturation (94-97) % Sodium (137-145) mmol/L Potassium (3.5-5.1) mmol/L BUN (7-17) mg/dL Creatinine (0.52-1.04) mg/dL Glucose (74-99) mg/dL POC Glucose (mg/dL) 127 H (70-110) mg/dL Calcium (8.4-10.2) mg/dL Lactate Dehydrogenase 4141 H 4609 H (120-246) U/L 10/04/22 10/04/22 10/04/22 Range/Units 03:00 03:35 03:35 WBC 18.3 H (3.8-10.6) k/uL RBC 3.28 L (3.80-5.40) m/uL Hgb 10.2 L (11.4-16.0) gm/dL Hct 31.2 L (34.0-46.0) % Neutrophils # 16.0 H (1.3-7.7) k/uL APTT 86.7 H (22.0-30.0) sec ABG pH (7.35-7.45) ABG pCO2 (35-45) mmHg ABG pO2 (83-108) mmHg ABG Total CO2 (19-24) mmol/L ABG O2 Saturation (94-97) % Sodium 130 L (137-145) mmol/L Potassium 3.0 L (3.5-5.1) mmol/L BUN 26 H (7-17) mg/dL Creatinine 1.43 H (0.52-1.04) mg/dL Glucose 116 H (74-99) mg/dL POC Glucose (mg/dL) (70-110) mg/dL Calcium 7.9 L (8.4-10.2) mg/dL Lactate Dehydrogenase (120-246) U/L 10/04/22 10/04/22 Range/Units 05:52 05:53 WBC (3.8-10.6) k/uL RBC (3.80-5.40) m/uL Hgb (11.4-16.0) gm/dL Hct (34.0-46.0) % Neutrophils # (1.3-7.7) k/uL APTT (22.0-30.0) sec ABG pH 7.48 H (7.35-7.45) ABG pCO2 31 L (35-45) mmHg ABG pO2 213 H (83-108) mmHg ABG Total CO2 14 L (19-24) mmol/L ABG O2 Saturation 100.0 H (94-97) % Sodium (137-145) mmol/L Potassium (3.5-5.1) mmol/L BUN (7-17) mg/dL Creatinine (0.52-1.04) mg/dL Glucose (74-99) mg/dL POC Glucose (mg/dL) 134 H (70-110) mg/dL Calcium (8.4-10.2) mg/dL Lactate Dehydrogenase (120-246) U/L Microbiology - Last 24 Hours (Table) 10/03/22 08:32 Gram Stain - Preliminary Sputum Sputum Culture - Preliminary Assessment and Plan Assessment: Acute non-ST segment elevation myocardial infarction, status post PCI with stenting of the RCA, and insertion of an Impella device, for cardiogenic shock. S/P cardiopulmonary arrest, with cardiopulmonary resuscitation, and return of spontaneous circulation, S/P intubation and mechanical ventilation on October 02. History of myocardial infarction. History of hyperlipidemia. Status post pacemaker/AICD placement (2005). History of hypertension. History of ischemic cardiomyopathy. Plan: Plan dated 10/02/2022. The patient arrives from the catheterization laboratory on a number of different drips including heparin, norepinephrine, amiodarone, propofol, dobutamine, and saline. The patient had a period of cardiopulmonary arrest with resuscitation in the catheterization laboratory. She was intubated and mechanically ventilated. She comes back to the ICU with an Impella device for cardiogenic shock. I place a right femoral vein triple lumen catheter. Initial blood gases, are reviewed, and the ventilator rates increased to 20, and the PEEP up to 10, and respiratory well titrate down the FiO2 if his saturations are 93% or higher. We will add albuterol sulfate and ipratropium bromide to her regimen. I did speak to cardiology about this patient. Labs, x-rays, and medications are reviewed. Laboratory data blood gases as well as a chest x-ray will be ordered for the morning. Prognosis is guarded. We will continue to follow this patient make recommendations along the way. Plan dated 10/03/2022. The patient is seen today in room 266. The patient's labs, x-rays, and medications are all reviewed. The patient remains on the mechanical ventilator. The patient's PEEP was decreased from 10 down to 5. She remains on propofol, norepinephrine, dobutamine, epinephrine, and IV heparin. The patient's overall prognosis remains very guarded. We will continue to follow make recommendations along the way. A right femoral triple-lumen catheter was placed yesterday for additional IV access. Plan dated 10/04/2022. The patient is again seen today in room 266. The patient remains on the the [facility] ventilator. Her oxygenation and ventilation are excellent. Labs, x-rays, medications are reviewed. Yesterday, the patient was on propofol, norepinephrine, dobutamine, epinephrine, and IV heparin. Today, the patient is only on propofol and heparin. We will attempt a daily interruption of sedation, so that we can evaluate her neurologic status. Also, if she's not ready to be extubated, we will start her on tube feedings. Additional recommendations and suggestions are forthcoming. Prognosis is guarded. Time with Patient: Greater than 30
[2022-10-04 11:43] LABS: Partial Thromboplastin Time 77.4 sec (22.0-30.0)
[2022-10-04 12:06] LABS: Glucose,Whole Blood 124 mg/dL (70-110)
--- NOTE | 2022-10-04 13:27 | CA ---
Transthoracic Echo Report Name: Laney Chang Age: 77 Gender: F : 1945 Exam Date: 10/04/2022 10:54 Exam Location: [facility] Ht (in): 64 Wt (lb): 134 Ordering Physician: Mike Hurtado MD ([id number]) Attending/Referring Phys: Territory Sales Manager Medical Jazmin Phillip, JULIANE Procedure CPT: Indications: impella placement, LV function Cardiac Hx: Technical Quality: Fair Contrast 1: Total Dose (mL): Contrast 2: Total Dose (mL): MEASUREMENTS (Male / Female) Normal Values 2D ECHO LV Diastolic Diameter PLAX 5.1 cm 4.2 - 5.9 / 3.9 - 5.3 cm LV Systolic Diameter PLAX 3.5 cm IVS Diastolic Thickness 1.3 cm 0.6 - 1.0 / 0.6 - 0.9 cm LVPW Diastolic Thickness 1.2 cm 0.6 - 1.0 / 0.6 - 0.9 cm LV Relative Wall Thickness 0.5 RV Internal Dim ED PLAX 2.0 cm LA Systolic Diameter LX 3.9 cm 3.0 - 4.0 / 2.7 - 3.8 cm LV Diastolic Volume MOD BP 156.5 cm??? 67 - 155 / 56 - 104 cm??? LV Systolic Volume MOD BP 125.1 cm??? 22 - 58 / 19 - 49 cm??? LV Ejection Fraction MOD BP 20.0 % >= 55 % LV Diastolic Volume MOD 4C 151.6 cm??? LV Systolic Volume MOD 4C 123.6 cm??? LV Ejection Fraction MOD 4C 18.5 % LV Diastolic Length 4C 7.9 cm LV Systolic Length 4C 8.5 cm LV Diastolic Volume MOD 2C 145.5 cm??? LV Systolic Volume MOD 2C 122.1 cm??? LV Ejection Fraction MOD 2C 16.1 % LV Diastolic Length 2C 8.8 cm LV Systolic Length 2C 8.1 cm DOPPLER TR Peak Velocity 256.4 cm/s TR Peak Gradient 26.3 mmHg Right Ventricular Systolic Press 28.8 mmHg FINDINGS Left Ventricle Left ventricular ejection fraction is estimated at 20-25 %. Left ventricular cavity size normal. Mildly increased septal wall thickness. Mildly increased posterior wall thickness. Severely increased left ventricular diastolic volume. Severely increased left ventricular systolic volume. Severely decreased left ventricular ejection fraction. Impella catheter in LVOT. Anteroapical and anterolateral akinesis Right Ventricle Normal right ventricular size. Right ventricular systolic pressure within normal limits. A wire was noted in the right ventricle Right Atrium Left Atrium Mitral Valve Mitral valve thickened. Mild mitral annular calcification. Moderate to severe mitral regurgitation. Aortic Valve Aortic valve sclerosis. Mild aortic regurgitation. Tricuspid Valve Mild tricuspid regurgitation. Pulmonic Valve Pulmonic valve not well visualized. Pericardium Normal pericardium. No pericardial effusion. Aorta CONCLUSIONS 1. Severely impaired left ventricle systolic function with segmental wall motion abnormality 2. A catheter is noted in the LV outflow tract 3. Moderate severe mitral with mild aortic and tricuspid regurgitation Previewed by: Dr. Mike Hurtado MD (Electronically Signed) Final Date: 04 Oct 2022 13:26
[2022-10-04] MEDS ORDERED: LIDOCAINE 1% INJ 10MG/ML (20 ML MDV) ONE (15:13)
--- NOTE | 2022-10-04 16:05 | P.PCN ---
Date of Procedure: 10/04/22 Description of Procedure: Removal of Impella catheter: The patient was brought to the cleaning laborer, she is intubated and sedated. She was stripped and prepped in the conventional fashion. A wire was introduced in the Impella catheter and the catheter was removed. The Perclose device to us placed prior to the insertion of the catheter was used to obtain hemostasis, there was partial hemostasis and an 8-Swiss Angio-Seal was introduced with obtaining hemostasis. The pulse was good. Subsequently an angiogram of the right femoral artery was performed through the catheter and showed large amount of calcium. The decision was made to place manual compression. Good hemostasis was obtained. There was no immediate complication. The patient was returned to her room in stable condition. Procedure was done with the assistance of Dr. Garcia.
[2022-10-04] MEDS: SODIUM CHLORIDE 0.9% 500 ML 500 ML IV SCH (18:04)
[2022-10-04 18:24] LABS: Glucose,Whole Blood 155 mg/dL (70-110)
[2022-10-04] MEDS: POTASSIUM BICARBONATE/CIT AC 20 MEQ TABLET.EFF NG-TUBE SCH ×2 (18:43→19:45)
[2022-10-04] MEDS: ATORVASTATIN 80 MG TAB PO SCH (20:01)
[2022-10-05 00:07] LABS: Glucose,Whole Blood 144 mg/dL (70-110)
[2022-10-05] MEDS: IPRATROPIUM-ALBUTEROL 3 ML NEB INHALATION SCH ×5 (00:29→15:29)
[2022-10-05] MEDS ORDERED: POTASSIUM BICARBONATE/CIT AC 20 MEQ TABLET.EFF NG-TUBE SCH ×2 (03:00→08:00)
[2022-10-05 05:59] LABS: HCT 32.3 % (34.0-46.0); HGB 10.4 gm/dL (11.4-16.0); Hypochromasia Slight; MCH 30.8 pg (25.0-35.0); MCHC 32.1 g/dL (31.0-37.0); Mean Platelet Volume 11.3; Platelet Count 180 k/uL (150-450); RBC 3.36 m/uL (3.80-5.40); RDW 15.7 % (11.5-15.5); WBC 37.7 k/uL (3.8-10.6)
[2022-10-05 06:04] LABS: Calcium 8.1 mg/dL (8.4-10.2); Potassium 3.9 mmol/L (3.5-5.1)
[2022-10-05] MEDS ORDERED: DEXTROSE 5% IN WATER 100 ML with AMIODARONE 150 MG IV ONE (06:30)
[2022-10-05 06:35] LABS: ABG Base Excess -10.7 mmol/L; ABG HCO3 15 mmol/L (21-25); ABG Oxygen Saturation 99.4 % (94-97); ABG PCO2 27 mmHg (35-45); ABG PH 7.35 (7.35-7.45); ABG PO2 156 mmHg (83-108); ABG TCO2 16 mmol/L (19-24); Allen Test Performed? Yes
[2022-10-05] MEDS ORDERED: AMIODARONE 360 MG in DEXTROSE 5% IN WATER 200 ML IV ONE ×2 (06:45)
[2022-10-05 07:01] LABS: Glucose,Whole Blood 181 mg/dL (70-110)
[2022-10-05 07:01] LABS: Magnesium 1.7 mg/dL (1.6-2.3)
[2022-10-05] MEDS ORDERED: MAGNESIUM SULFATE-D5W PMX 1 GM in DEXTROSE/WATER 1 100ML.BAG IVPB ONE (07:30)
--- NOTE | 2022-10-05 07:31 | XR ---
EXAMINATION TYPE: XR chest 1V portable DATE OF EXAM: 10/05/2022 5:31 AM COMPARISON: Chest radiographs from 10/04/2022 TECHNIQUE: XR chest 1V portable Frontal view of the chest. CLINICAL INDICATION:Female, 77 years old with history of Tube placement; FINDINGS: Lungs/Pleura: There is flattening of the diaphragm with increased lucency of the lungs. No evidence o f pneumothorax, pleural effusion or focal consolidation. Pulmonary vascularity: Unremarkable. Heart/mediastinum: Cardiomediastinal silhouette is unremarkable. Atherosclerotic calcifications are seen in the aorta. Two lead cardiac conduction device overlying the left hemithorax with lead tips pr ojecting over the right ventricle and right atrium. Musculoskeletal: No acute osseous pathology. Midline sternotomy wires are noted. Endotracheal tube 3.9 cm above the charlie. Nasogastric tube terminating over the gastric lumen. IMPRESSION: 1. Stable support tubes. 2. Emphysema/COPD.
[2022-10-05] MEDS ORDERED: HYDROmorphone 1 MG/ML 1 ML SYRINGE IVP PRN (08:21)
[2022-10-05] MEDS ORDERED: SODIUM BICARB 8.4% 50 ML SYR (1 MEQ/ML) IV STA (08:21)
[2022-10-05] MEDS: ASPIRIN 81 MG PO SCH (08:25)
[2022-10-05] MEDS: SPIRONOLACTONE 25 MG TAB PO SCH (08:25)
[2022-10-05] MEDS: CLOPIDOGREL 75 MG TAB PO SCH (08:26)
[2022-10-05] MEDS: allopurinoL 100 MG TAB PO SCH (08:26)
[2022-10-05] MEDS: CHLORHEXIDINE GLUCONATE 15 ML CUP MUCOUS MEM SCH (08:26)
[2022-10-05] MEDS: PANTOPRAZOLE 40 MG/10 ML VIAL IVP SCH (08:26)
[2022-10-05] MEDS: FUROSEMIDE 10 MG/ML 2 ML VIAL IV SCH (08:27)
[2022-10-05] MEDS ORDERED: CISATRACURIUM 2 MG/ML 5 ML VIAL IV ONE (08:30)
[2022-10-05] MEDS ORDERED: ENOXAPARIN 40 MG/0.4 ML SYRINGE SQ SCH (09:00)
[2022-10-05] MEDS ORDERED: NOREPINEPHRINE 8 MG in SODIUM CHLORIDE 0.9% 250 ML IV SCH (09:15)
[2022-10-05 09:33] VITALS: TEMP 97.5
--- NOTE | 2022-10-05 09:42 | P.PN ---
Subjective Progress Note Date: 10/05/22 PROGRESS NOTE The patient is a 77-year-old female with known history of severe ischemic cardiomyopathy, status post ICD implantation and chronically occluded LAD who presented with non-STEMI and underwent stenting of the RCA with Impella report. She is intubated and sedated. Her blood pressure is stable. She has some oozing from the site of her catheter on the left side. Her urinary output has been stable. She is in sinus mechanism and there is no evidence of malignant arrhythmia. She remained sedated. Her echocardiogram showed severely impaired systolic function with segmental wall motion abnormality. Her ejection fraction is 20-25% with severe mitral regurgitation. October 05: The patient remains intubated, she is sedated. Earlier she was breathing over the vent. Her Impella was removed yesterday. She is hypotensive this morning. She is receiving bicarb. She had a run of nonsustained VT earlier. Her urine output has decreased. She is in sinus mechanism. There is no sustained paula tricular tachycardia. She was started on IV amiodarone. Medications: Aspirin, Lipitor 80 mg daily, Plavix 75 mg daily, metoprolol tartrate 12.5 mg twice a day, Protonix, Aldactone 25 mg daily, IV amiodarone, Lovenox, Lasix 20 mg IV every 12 hours PHYSICAL EXAMINATION: Blood pressure 80/90 heart rate 85, intubated and sedated LUNGS: Clear to auscultation HEART: Regular rate and rhythm, S1, S2. No S3. systolic ejection murmur and holosystolic murmur ABDOMEN: Soft, positive bowel sounds, no organomegaly EXTREMETIES: No edema, both groins with ecchymosis but no hematoma LAB: WBC 37.7, hemoglobin 10.4. PH 7.35. Potassium 3.9. BUN 35, creatinine 1.89 IMPRESSION: 1. Status post non-STEMI and stenting of the RCA 2. Status post Impella catheter, removed 3. Severe ischemic cardiomyopathy status post ICD 4. Respiratory failure, intubated 5. Worsening renal function 6. Leukocytosis rule out infection PLAN: 1. Start norepinephrine for blood pressure support 2. Continue IV amiodarone 3. Follow renal functions 4. Prognosis guarded Objective - Vital Signs Vital signs: Vital Signs Temp 97.5 F L 10/05/22 08:00 Pulse 80 10/05/22 09:30 Resp 20 10/05/22 09:30 BP 69/31 10/05/22 09:30 Pulse Ox 98 10/05/22 09:30 FiO2 40 10/05/22 08:36 Intake & Output 10/04/22 10/05/22 10/05/22 18:59 06:59 18:59 Intake Total 1436.976 914.938 279.738 Output Total 2080 655 80 Balance -643.024 259.938 199.738 Weight 61.1 kg 60.6 kg Intake: IV 1100 580 180 Magnesium Sulfate-D5w Pmx 100 1 gm In Dextrose/Water 1 100ml.bag @ 100 mls/hr IVPB ONCE ONE Rx#: [id number] Potassium Chloride 10 meq 600 In Water For Injection 1 100ml.bag @ 100 mls/hr IVPB Q1HR [facility] Rx#: [id number] Sodium Chloride 0.9% 500 400 480 80 ml 500 ml @ 20 mls/hr IV .Q24H [facility] Rx#:[id number] ceFAZolin 1,000 mg In 100 100 Sodium Chloride 0.9% 50 ml @ 100 mls/hr IVPB Q6HR [facility] Rx#:[id number] Intake, IV Titration 206.976 114.938 49.738 Amount Heparin Sod,Pork in 0.45% 40.621 NaCl 25,000 unit In 0.45 % NaCl 1 250ml.bag @ 12 UNITS/KG/HR 6.924 mls/hr IV .Q24H [facility] Rx#: [id number] Potassium Chloride 10 meq 100 In Water For Injection 1 100ml.bag @ 100 mls/hr IVPB Q1HR [facility] Rx#: [id number] propofoL 1,000 mg In 66.355 114.938 49.738 Empty Bag 1 bag @ 15 MCG/ KG/MIN 5.193 mls/hr IV . [id number] [facility] Rx#:[id number] Oral 20 Tube Feeding 10 160 Other 120 60 30 Output: Urine 2080 655 80 Other: Voiding Method Indwelling Catheter Indwelling Catheter ABP, PAP, CO, CI - Last Documented Arterial Blood Pressure 107/58 - Labs CBC & Chem 7: 10/05/22 05:13 10/05/22 05:13 Labs: Abnormal Lab Results - Last 24 Hours (Table) 10/04/22 10/04/22 10/04/22 Range/Units 10:50 10:50 12:04 WBC (3.8-10.6) k/uL RBC (3.80-5.40) m/uL Hgb (11.4-16.0) gm/dL Hct (34.0-46.0) % RDW (11.5-15.5) % APTT 77.4 H (22.0-30.0) sec ABG pCO2 (35-45) mmHg ABG pO2 (83-108) mmHg ABG HCO3 (21-25) mmol/L ABG Total CO2 (19-24) mmol/L ABG O2 Saturation (94-97) % Sodium (137-145) mmol/L Potassium (3.5-5.1) mmol/L Chloride (98-107) mmol/L Carbon Dioxide (22-30) mmol/L BUN (7-17) mg/dL Creatinine (0.52-1.04) mg/dL Glucose (74-99) mg/dL POC Glucose (mg/dL) 124 H (70-110) mg/dL Calcium (8.4-10.2) mg/dL Lactate Dehydrogenase 4274 H (120-246) U/L 10/04/22 10/04/22 10/05/22 Range/Units 18:01 18:23 00:06 WBC (3.8-10.6) k/uL RBC (3.80-5.40) m/uL Hgb (11.4-16.0) gm/dL Hct (34.0-46.0) % RDW (11.5-15.5) % APTT (22.0-30.0) sec ABG pCO2 (35-45) mmHg ABG pO2 (83-108) mmHg ABG HCO3 (21-25) mmol/L ABG Total CO2 (19-24) mmol/L ABG O2 Saturation (94-97) % Sodium (137-145) mmol/L Potassium 3.4 L (3.5-5.1) mmol/L Chloride (98-107) mmol/L Carbon Dioxide (22-30) mmol/L BUN (7-17) mg/dL Creatinine (0.52-1.04) mg/dL Glucose (74-99) mg/dL POC Glucose (mg/dL) 155 H 144 H (70-110) mg/dL Calcium (8.4-10.2) mg/dL Lactate Dehydrogenase (120-246) U/L 10/05/22 10/05/22 10/05/22 Range/Units 05:13 05:13 06:03 WBC 37.7 H (3.8-10.6) k/uL RBC 3.36 L (3.80-5.40) m/uL Hgb 10.4 L (11.4-16.0) gm/dL Hct 32.3 L (34.0-46.0) % RDW 15.7 H (11.5-15.5) % APTT (22.0-30.0) sec ABG pCO2 27 L (35-45) mmHg ABG pO2 156 H (83-108) mmHg ABG HCO3 15 L (21-25) mmol/L ABG Total CO2 16 L (19-24) mmol/L ABG O2 Saturation 99.4 H (94-97) % Sodium 132 L (137-145) mmol/L Potassium (3.5-5.1) mmol/L Chloride 97 L (98-107) mmol/L Carbon Dioxide 16 L (22-30) mmol/L BUN 35 H (7-17) mg/dL Creatinine 1.89 H (0.52-1.04) mg/dL Glucose 118 H (74-99) mg/dL POC Glucose (mg/dL) (70-110) mg/dL Calcium 8.1 L (8.4-10.2) mg/dL Lactate Dehydrogenase (120-246) U/L 10/05/22 Range/Units 07:00 WBC (3.8-10.6) k/uL RBC (3.80-5.40) m/uL Hgb (11.4-16.0) gm/dL Hct (34.0-46.0) % RDW (11.5-15.5) % APTT (22.0-30.0) sec ABG pCO2 (35-45) mmHg ABG pO2 (83-108) mmHg ABG HCO3 (21-25) mmol/L ABG Total CO2 (19-24) mmol/L ABG O2 Saturation (94-97) % Sodium (137-145) mmol/L Potassium (3.5-5.1) mmol/L Chloride (98-107) mmol/L Carbon Dioxide (22-30) mmol/L BUN (7-17) mg/dL Creatinine (0.52-1.04) mg/dL Glucose (74-99) mg/dL POC Glucose (mg/dL) 181 H (70-110) mg/dL Calcium (8.4-10.2) mg/dL Lactate Dehydrogenase (120-246) U/L
[2022-10-05 10:03] LABS: HCT 28.4 % (34.0-46.0); Hypochromasia Marked; MCH 31.5 pg (25.0-35.0); MCHC 31.4 g/dL (31.0-37.0); MCV 100.4 fL (80.0-100.0); Macrocytosis Slight; Mean Platelet Volume 11.2; Platelet Count 162 k/uL (150-450); RBC 2.83 m/uL (3.80-5.40); RDW 15.4 % (11.5-15.5)
[2022-10-05 10:13] LABS: Albumin 2.1 g/dL (3.5-5.0); Bilirubin, Conjugated 1.5 mg/dL (0.0-0.3); Bilirubin, Delta 1.4 mg/dL (0.0-0.2); Bilirubin,Unconjugated 0.6 mg/dL (0.0-1.1); HGB 8.9 gm/dL (11.4-16.0); Total Bilirubin 3.5 mg/dL (0.2-1.3); Total Protein 4.2 g/dL (6.3-8.2)
[2022-10-05 10:27] LABS: Band Neutrophils % 6 %; Lymphocytes # (M) 1.27 k/uL (1.0-4.8); Neutrophils % (M) 85 %; Nucleated Red Blood Cells 1 /100 WBC (0-0); Total Cells Counted 200; WBC 31.7 k/uL (3.8-10.6)
[2022-10-05 10:28] LABS: Crenated RBC Present; Poikilocytosis (M) Present
[2022-10-05] MEDS ORDERED: VANCOMYCIN 1,000 MG in SODIUM CHLORIDE 0.9% 250 ML IVPB STA (10:36)
[2022-10-05] MEDS ORDERED: LACTATED RINGERS 1,000 ML IV SCH (10:45)
[2022-10-05] MEDS ORDERED: HYDROCORTISONE SUCCINATE 100 MG/2 ML VIAL IV STA (10:50)
[2022-10-05] MEDS ORDERED: NOREPINEPHRINE 32 MG in SODIUM CHLORIDE 0.9% 218 ML IV SCH (11:00)
[2022-10-05] MEDS ORDERED: VASOPRESSIN 60 UNIT in SODIUM CHLORIDE 0.9% 150 ML IV SCH (11:00)
[2022-10-05] MEDS: SODIUM CHLORIDE 0.9% 500 ML 500 ML IV SCH (11:30)
[2022-10-05] MEDS ORDERED: PIPERACILLIN-TAZOBACTAM 3.375 GM in SODIUM CHLORIDE 0.9% 100 ML IVPB SCH (12:00)
[2022-10-05] MEDS ORDERED: AMIODARONE 450 MG in DEXTROSE 5% IN WATER 250 ML IV SCH ×4 (12:30→12:45)
--- NOTE | 2022-10-05 12:42 | CT ---
EXAMINATION TYPE: CT abdomen pelvis wo con CT DLP: 752.9 mGycm, Automated exposure control for dose reduction was used. DATE OF EXAM: 10/05/2022 12:05 PM COMPARISON: None CLINICAL INDICATION:Female, 77 years old with history of retroperitoneal bleed; Possible retroperiton eal bleed TECHNIQUE: Axial CT of the abdomen and pelvis. Sagittal and coronal reformats were created on a Room workstation. Contrast used: None Oral contrast used: without Oral Contrast FINDINGS: LOWER CHEST: Heart is enlarged for size. There is small bilateral pleural effusions right and left th ere is ground glass opacities within the right lung. ABDOMEN LIVER: Unremarkable GALLBLADDER AND BILE DUCTS: Pneumobilia within the left hepatic lobe. Few scattered gallstones presen t. PANCREAS: Unremarkable. SPLEEN: Unremarkable. ADRENAL GLANDS: Left adrenal gland 17 mm indeterminate lesion KIDNEYS AND URETERS: No evidence of hydronephrosis or renal calculus. Somewhat striated nephrogram of the right superior kidneye on coronal imaging. The left kidney enhances relatively uniformly. PELVIS BLADDER: Nondistended with Vallecillo catheter in place. REPRODUCTIVE: Pessary ring is noted. ABDOMEN & PELVIS STOMACH AND BOWEL: Large stool burden is seen within the colon. Pneumatosis is seen within the gastri c arthur and small bowel arthur most pronounced in the duodenum. Nasogastric tube terminating within th e stomach. Few scattered colonic diverticula are present. PERITONEUM/RETROPERITONEUM: Scattered gas seen throughout the mesentery felt to be within the venous vasculature. VASCULATURE: Moderate atherosclerotic calcifications are present throughout the abdominal aorta and i ts branches. No evidence of aortic aneurysm. MUSCULOSKELETAL: No acute osseous abnormalities. Mild disc degeneration changes are present throughou t the thoracolumbar spine. Severe degeneration changes of the spine. LYMPH NODES: No gross evidence for lymphadenopathy. SOFT TISSUE/ABDOMINAL WALL: Unremarkable IMPRESSION: 1. Pneumatosis involving the stomach and proximal small bowel with portal venous gas extending into the liver. Correlate for lactic acid in the setting of ischemic bowel. 2. No retroperitoneal hemorrhage. 3. Striated right renal nephrogram correlate for ascending infection and/or ischemia etiologies. 4. Distended gallbladder with Cholelithiasis. 5. Indeterminate left adrenal gland 17 mm lesion. This is statistically likely represents adrenal ad enoma in the absence of risk factors. Findings communicated to Dr. Lenora Snowden MD on 10/05/2022 12:[address] Trenton Mixon.
--- NOTE | 2022-10-05 12:49 | P.PN ---
Subjective Progress Note Date: 10/05/22 Principal diagnosis: Respiratory failure. Pulmonary/critical care consult dated 10/02/2022. 77-year-old female with a history of ischemic cardiomyopathy, hypertension, and ICD, who presented to the emergency department at 8:15 PM, on October 01. The patient states that her device went off 4 times at home. She apparently was not having any chest pain or shortness of breath at that time. The patient does follow with cardiology, and denied all symptoms including nausea, vomiting, and shortness of breath. She did apparently had some swelling to the lower extremities. She does have chronic hypoxemic respiratory failure and does use oxygen at home at 2 L. The patient ended up going to the catheterization laboratory today, and had a stent placed in the right coronary artery. While in the catheterization laboratory, she developed harder pulmonary rest, was resuscitated, intubated, and had a Impella device inserted. I was called by cardiology about her, and I met her in the intensive care unit, room 266. The patient is currently on the ventilator, assist control mode, rate 12, tidal volume 375, 100%, PEEP of 5. Gases are currently pending. The patient's on heparin, the overweight based protocol, norepinephrine at 12 mcg/m, amiodarone at 1 mg/m, propofol at 25 mcg/kg/m, 0.9 at 75 mL an hour, and dobutamine at 5 mcg/kg/m. I placed a right femoral triple-lumen catheter for additional IV access. Arterial blood gases are currently pending. Chest x-rays pending. The patient was seen and examined. Current laboratory data includes a white count 6.4, hemoglobin 12.6, hematocrit 39.9, and a platelet count that was normal. Coagulation studies were normal. Sodium 135, potassium 3.5, chlorides 95, CO2 29, anion gap 11, BUN 15, creatinine 0.59. N-terminal proBNP was 4920. Troponins were 0.026, 0.183, and 0.255. Her chest x-ray on admission shows cardiomegaly, her AICD device, and mild pulmonary vascular congestion with small bilateral pleural effusions. Progress note dated 10/03/2022. 77-year-old female who was seen in consultation yesterday. Please see the note above. The patient had a episode of cardiopulmonary arrest, and the catheterization laboratory, when she was having a stent placed in the right coronary artery. The patient was intubated, and an Impella device was placed. She was seen today in the intensive care unit. She remains on the volume assist control, rate 20, tidal volume 375, FiO2 50%, with 10. Arterial blood gases show pO2 165, pCO2 35, and pH of 7.37. Patient is on saline at 20 mL an hour, propofol at 30 mcg/kg/m, norepinephrine at 1 mcg/m, heparin via weightbase protocol, epinephrine at 2 mcg/m, and dobutamine at 5 mcg/kg/m. White count 13.5, hemoglobin 10.4, hematocrit 32.2, and platelet count 163,000. PTT is 34.4. Sodium 129, potassium 4.1, chlorides 98, CO2 20, anion gap 11, BUN 18, creatinine 1.07. Bilirubin 4.5, AST 332, ALT 116, and LDH 1765. Chest x-ray shows no evidence of significant consolidation, pleural effusion, or pneumothorax. Progress note dated 10/04/2022. 77-year-old female seen in consultation, on October 02. Please see my consultative note, and my progress note from yesterday. Currently, the patient remains in the intensive care unit, room 266. She remains on mechanical ventilator, volume assist control, rate 20, tidal volume 375, FiO2 40%, and PEEP of 5. Blood gases show pO2 213, pCO2 31, and a pH of 7.48. Blood gases were done on 50%. FiO2 was reduced down to 40%. She remains on propofol at 25 mcg/kg/m, heparin via weightbase protocol, and saline at 40 mL an hour. We will have dietary come up with a formulation for tube feeds. White count 18.3, hemoglobin 10.2, hematocrit 31.2, and a platelet count of 171,000. Sodium 130, potassium 3, chlorides 98, CO2 22, anion gap 10, BUN 26, creatinine 1.43. Chest x-ray shows changes of cardiomegaly, and some mild interstitial changes. Progress note dated 10/05/2022. 77-year-old female seen a couple days ago in consultation. The patient is seen today in room 266. Currently, the patient remains on the mechanical ventilator. She is on the volume assist control, rate 20, tidal volume 375, FiO2 40%, and PEEP of 5. Blood gases show pO2 156, pCO2 27, and pH is 7.35. Those blood gases are consistent with metabolic acidosis. The patient's on propofol at 50 mcg/kg/m, amiodarone at 1 mg/m, saline at 20 mL an hour, norepinephrine at 4 mcg/m, and vital AF 1.2, at 30 mL an hour, with a goal of 40. White count 31.7, hemoglobin 8.9 down from 10.4, hematocrit 28.4, and platelet count 162,000. Sodium 132, potassium 3.9, chlorides 97, CO2 16, anion gap 19, BUN 35, and creatinine 1.89. Lactic acid is up to 15.4. AST 1073. ALT 212. Chest x-ray shows changes of COPD. Her current lines are in good position. CAT scan of the abdomen and pelvis suggestive possibility of ischemic bowel, no retroperitoneal hemorrhage, and possible ascending kidney infection. In addition, there is distended gallbladder with cholelithiasis. Objective - Vital Signs Vital signs: Vital Signs Temp 97.5 F L 10/05/22 08:00 Pulse 90 10/05/22 12:34 Resp 24 10/05/22 12:30 BP 113/51 10/05/22 12:30 Pulse Ox 99 10/05/22 12:30 FiO2 40 10/05/22 12:10 Intake & Output 10/04/22 10/05/22 10/05/22 18:59 06:59 18:59 Intake Total 1436.976 914.938 364.287 Output Total 2080 655 105 Balance -643.024 259.938 259.287 Weight 61.1 kg 60.6 kg Intake: IV 1100 580 260 Magnesium Sulfate-D5w Pmx 100 1 gm In Dextrose/Water 1 100ml.bag @ 100 mls/hr IVPB ONCE ONE Rx#: [id number] Potassium Chloride 10 meq 600 In Water For Injection 1 100ml.bag @ 100 mls/hr IVPB Q1HR [facility] Rx#: [id number] Sodium Chloride 0.9% 500 400 480 160 ml 500 ml @ 20 mls/hr IV .Q24H [facility] Rx#:[id number] ceFAZolin 1,000 mg In 100 100 Sodium Chloride 0.9% 50 ml @ 100 mls/hr IVPB Q6HR [facility] Rx#:[id number] Intake, IV Titration 206.976 114.938 54.287 Amount Heparin Sod,Pork in 0.45% 40.621 NaCl 25,000 unit In 0.45 % NaCl 1 250ml.bag @ 12 UNITS/KG/HR 6.924 mls/hr IV .Q24H [facility] Rx#: [id number] Norepinephrine 32 mg In 0.152 Sodium Chloride 0.9% 218 ml @ 0.32 MCG/KG/MIN 9.09 mls/hr IV .Q24H [facility] Rx#: [id number] Norepinephrine 8 mg In 4.397 Sodium Chloride 0.9% 250 ml @ 0.03 MCG/KG/MIN 3. 518 mls/hr IV .Q24H [facility] Rx#:[id number] Potassium Chloride 10 meq 100 In Water For Injection 1 100ml.bag @ 100 mls/hr IVPB Q1HR [facility] Rx#: [id number] propofoL 1,000 mg In 66.355 114.938 49.738 Empty Bag 1 bag @ 15 MCG/ KG/MIN 5.193 mls/hr IV . [id number] [facility] Rx#:[id number] Oral 20 Tube Feeding 10 160 Blood Product 0 Unit 0 Other 120 60 30 Output: Urine 2080 655 105 Other: Voiding Method Indwelling Catheter Indwelling Catheter Indwelling Catheter ABP, PAP, CO, CI - Last Documented Arterial Blood Pressure 112/50 - Exam No acute distress, sedated, with an orally placed endotracheal tube. HEENT examination is grossly unremarkable. Neck supple. Full range of motion. No adenopathy thyromegaly or neck vein distention. Cardiovascular examination reveals regular rhythm rate. S1-S2 normal. No S3 or S4. No discernible murmur noted. Heart sounds are distant. Heart rate 88 bpm. Lungs reveal mild scattered rhonchi. No wheezes. No distinct crackles. Breath sounds are improved compared to yesterday's examination. Breath sounds equal bilaterally. Saturations are 98 %. Abdomen soft, without bowel sounds. No masses. Extremities are intact. No cyanosis clubbing or edema. Skin is without rash or lesion. Neurologic examination cannot be assessed. - Labs CBC & Chem 7: 10/05/22 09:45 10/05/22 05:13 Labs: Abnormal Lab Results - Last 24 Hours (Table) 10/04/22 10/04/2223 Range/Units 10:50 18:01 18:23 WBC (3.8-10.6) k/uL RBC (3.80-5.40) m/uL Hgb (11.4-16.0) gm/dL Hct (34.0-46.0) % MCV (80.0-100.0) fL RDW (11.5-15.5) % Neutrophils # (Manual) (1.3-7.7) k/uL Monocytes # (Manual) (0-1.0) k/uL Nucleated RBCs (0-0) /100 WBC ABG pCO2 (35-45) mmHg ABG pO2 (83-108) mmHg ABG HCO3 (21-25) mmol/L ABG Total CO2 (19-24) mmol/L ABG O2 Saturation (94-97) % Sodium (137-145) mmol/L Potassium 3.4 L (3.5-5.1) mmol/L Chloride (98-107) mmol/L Carbon Dioxide (22-30) mmol/L BUN (7-17) mg/dL Creatinine (0.52-1.04) mg/dL Glucose (74-99) mg/dL POC Glucose (mg/dL) 155 H (70-110) mg/dL Plasma Lactic Acid Marek (0.7-2.0) mmol/L Calcium (8.4-10.2) mg/dL Total Bilirubin (0.2-1.3) mg/dL Conjugated Bilirubin (0.0-0.3) mg/dL Delta Bilirubin (0.0-0.2) mg/dL AST (14-36) U/L ALT (4-34) U/L Alkaline Phosphatase (38-126) U/L Lactate Dehydrogenase 4274 H (120-246) U/L Total Protein (6.3-8.2) g/dL Albumin (3.5-5.0) g/dL Crossmatch 10/05/22 10/05/22 10/05/22 Range/Units 00:06 05:13 05:13 WBC 37.7 H (3.8-10.6) k/uL RBC 3.36 L (3.80-5.40) m/uL Hgb 10.4 L (11.4-16.0) gm/dL Hct 32.3 L (34.0-46.0) % MCV (80.0-100.0) fL RDW 15.7 H (11.5-15.5) % Neutrophils # (Manual) (1.3-7.7) k/uL Monocytes # (Manual) (0-1.0) k/uL Nucleated RBCs (0-0) /100 WBC ABG pCO2 (35-45) mmHg ABG pO2 (83-108) mmHg ABG HCO3 (21-25) mmol/L ABG Total CO2 (19-24) mmol/L ABG O2 Saturation (94-97) % Sodium 132 L (137-145) mmol/L Potassium (3.5-5.1) mmol/L Chloride 97 L (98-107) mmol/L Carbon Dioxide 16 L (22-30) mmol/L BUN 35 H (7-17) mg/dL Creatinine 1.89 H (0.52-1.04) mg/dL Glucose 118 H (74-99) mg/dL POC Glucose (mg/dL) 144 H (70-110) mg/dL Plasma Lactic Acid Marek (0.7-2.0) mmol/L Calcium 8.1 L (8.4-10.2) mg/dL Total Bilirubin (0.2-1.3) mg/dL Conjugated Bilirubin (0.0-0.3) mg/dL Delta Bilirubin (0.0-0.2) mg/dL AST (14-36) U/L ALT (4-34) U/L Alkaline Phosphatase (38-126) U/L Lactate Dehydrogenase (120-246) U/L Total Protein (6.3-8.2) g/dL Albumin (3.5-5.0) g/dL Crossmatch 10/05/22 10/05/22 10/05/22 Range/Units 06:03 07:00 09:45 WBC (3.8-10.6) k/uL RBC (3.80-5.40) m/uL Hgb (11.4-16.0) gm/dL Hct (34.0-46.0) % MCV (80.0-100.0) fL RDW (11.5-15.5) % Neutrophils # (Manual) (1.3-7.7) k/uL Monocytes # (Manual) (0-1.0) k/uL Nucleated RBCs (0-0) /100 WBC ABG pCO2 27 L (35-45) mmHg ABG pO2 156 H (83-108) mmHg ABG HCO3 15 L (21-25) mmol/L ABG Total CO2 16 L (19-24) mmol/L ABG O2 Saturation 99.4 H (94-97) % Sodium (137-145) mmol/L Potassium (3.5-5.1) mmol/L Chloride (98-107) mmol/L Carbon Dioxide (22-30) mmol/L BUN (7-17) mg/dL Creatinine (0.52-1.04) mg/dL Glucose (74-99) mg/dL POC Glucose (mg/dL) 181 H (70-110) mg/dL Plasma Lactic Acid Marek 15.4 H* (0.7-2.0) mmol/L Calcium (8.4-10.2) mg/dL Total Bilirubin (0.2-1.3) mg/dL Conjugated Bilirubin (0.0-0.3) mg/dL Delta Bilirubin (0.0-0.2) mg/dL AST (14-36) U/L ALT (4-34) U/L Alkaline Phosphatase (38-126) U/L Lactate Dehydrogenase (120-246) U/L Total Protein (6.3-8.2) g/dL Albumin (3.5-5.0) g/dL Crossmatch 10/05/22 10/05/22 10/05/22 Range/Units 09:45 09:45 10:30 WBC 31.7 H (3.8-10.6) k/uL RBC 2.83 L (3.80-5.40) m/uL Hgb 8.9 L D (11.4-16.0) gm/dL Hct 28.4 L (34.0-46.0) % MCV 100.4 H (80.0-100.0) fL RDW (11.5-15.5) % Neutrophils # (Manual) 28.80 H (1.3-7.7) k/uL Monocytes # (Manual) 1.90 H (0-1.0) k/uL Nucleated RBCs 1 H (0-0) /100 WBC ABG pCO2 (35-45) mmHg ABG pO2 (83-108) mmHg ABG HCO3 (21-25) mmol/L ABG Total CO2 (19-24) mmol/L ABG O2 Saturation (94-97) % Sodium (137-145) mmol/L Potassium (3.5-5.1) mmol/L Chloride (98-107) mmol/L Carbon Dioxide (22-30) mmol/L BUN (7-17) mg/dL Creatinine (0.52-1.04) mg/dL Glucose (74-99) mg/dL POC Glucose (mg/dL) (70-110) mg/dL Plasma Lactic Acid Marek (0.7-2.0) mmol/L Calcium (8.4-10.2) mg/dL Total Bilirubin 3.5 H (0.2-1.3) mg/dL Conjugated Bilirubin 1.5 H (0.0-0.3) mg/dL Delta Bilirubin 1.4 H (0.0-0.2) mg/dL AST 1073 H (14-36) U/L ALT 212 H (4-34) U/L Alkaline Phosphatase 157 H (38-126) U/L Lactate Dehydrogenase 2241 H (120-246) U/L Total Protein 4.2 L (6.3-8.2) g/dL Albumin 2.1 L (3.5-5.0) g/dL Crossmatch See Detail Microbiology - Last 24 Hours (Table) 10/03/22 08:32 Gram Stain - Final Sputum Sputum Culture - Final Assessment and Plan Assessment: Acute non-ST segment elevation myocardial infarction, status post PCI with stenting of the RCA, and insertion of an Impella device, for cardiogenic shock. Impella device removed 10/04/2022. S/P cardiopulmonary arrest, with cardiopulmonary resuscitation, and return of spontaneous circulation, S/P intubation and mechanical ventilation on October 02. Acute kidney injury. Anion gap metabolic acidosis, secondary to lactic acidemia. History of myocardial infarction. History of hyperlipidemia. Status post pacemaker/AICD placement (2005). History of hypertension. History of ischemic cardiomyopathy. Plan: Plan dated 10/02/2022. The patient arrives from the catheterization laboratory on a number of different drips including heparin, norepinephrine, amiodarone, propofol, dobutamine, and saline. The patient had a period of cardiopulmonary arrest with resuscitation in the catheterization laboratory. She was intubated and mechanically v entilated. She comes back to the ICU with an Impella device for cardiogenic shock. I place a right femoral vein triple lumen catheter. Initial blood gases, are reviewed, and the ventilator rates increased to 20, and the PEEP up to 10, and respiratory well titrate down the FiO2 if his saturations are 93% or higher. We will add albuterol sulfate and ipratropium bromide to her regimen. I did speak to cardiology about this patient. Labs, x-rays, and medications are reviewed. Laboratory data blood gases as well as a chest x-ray will be ordered for the morning. Prognosis is guarded. We will continue to follow this patient make recommendations along the way. Plan dated 10/03/2022. The patient is seen today in room 266. The patient's labs, x-rays, and medications are all reviewed. The patient remains on the mechanical ventilator. The patient's PEEP was decreased from 10 down to 5. She remains on propofol, norepinephrine, dobutamine, epinephrine, and IV heparin. The patient's overall prognosis remains very guarded. We will continue to follow make recommendations along the way. A right femoral triple-lumen catheter was placed yesterday for additional IV access. Plan dated 10/04/2022. The patient is again seen today in room 266. The patient remains on the mechanical ventilator. Her oxygenation and ventilation are excellent. Labs, x- rays, medications are reviewed. Yesterday, the patient was on propofol, norepinephrine, dobutamine, epinephrine, and IV heparin. Today, the patient is only on propofol and heparin. We will attempt a daily interruption of sedation, so that we can evaluate her neurologic status. Also, if she's not ready to be extubated, we will start her on tube feedings. Additional recommendations and suggestions are forthcoming. Prognosis is guarded. Plan dated 10/05/2022. The patient is seen today in room 266. An arterial line is placed in the left wrist. In addition, the patient's developing anion gap metabolic acidosis. We'll check a pro-calcitonin level. We'll cultured blood urine and sputum. The patient will get additional fluids. Currently, the patient's on propofol, amiodarone, and norepinephrine. The results of the CAT scan show no evidence of retroperitoneal hemorrhage. There is a possibility of ischemic bowel. Surgery will be consulted. Additional recommendations and suggestions are forthcoming. Prognosis is guarded. Time with Patient: Greater than 30
[2022-10-05] MEDS ORDERED: LORazepam 2 MG/ML INJ IV PRN (12:59)
[2022-10-05] MEDS ORDERED: MORPHINE SULFATE 4 MG/ML SYRINGE IV PRN (12:59)
[2022-10-05] MEDS ORDERED: ATROPINE OPHTH SOLN 1% 5ML BTL SUBLINGUAL PRN (12:59)
[2022-10-05 13:01] LABS: Glucose,Whole Blood 127 mg/dL (70-110)
[2022-10-05] MEDS ORDERED: SCOPOLAMINE 1 MG/72 HR PATCH TRANSDERM SCH (13:30)
[2022-10-05] MEDS ORDERED: MORPHINE SULFATE (100 MG/2 ML) 100 MG in SODIUM CHLORIDE 0.9% 100 ML IV SCH (13:30)
--- NOTE | 2022-10-05 13:52 | OP ---
OPERATIVE REPORT DATE OF SERVICE : PROCEDURE PERFORMED: Left radial art line. PREOPERATIVE DIAGNOSES: Hypotension, administration of fluids and pressors. POSTOPERATIVE DIAGNOSES: Hypotension, administration of fluids and pressors. ANIMAL RESEARCHER: Dr. Garcia. There was informed consent and universal timeout. ARTERIAL LINE PLACEMENT: Indications: Hemodynamic monitoring. A time-out was completed verifying correct patient, procedure, site, positioning, and implant(s) or special equipment if applicable. Luis's test was performed to ensure adequate perfusion. The patient's left wrist was prepped and draped in sterile fashion. 1% Lidocaine was used to anesthetize the area. An 18G Arrow arterial line was introduced into the left radial artery. The catheter was threaded over the guide wire and the needle was removed with appropriate pulsatile blood return. Blood loss was minimal. The catheter was then sutured in place to the skin and a sterile dressing applied. Perfusion to the extremity distal to the point of catheter insertion was checked and found to be adequate. There was no immediate complication. The catheter was sutured in place. A sterile dressing was applied by the nurse. There was good blood return and waveform. The patient tolerated the procedure well. MMODL / IJN: [id number] /
--- NOTE | 2022-10-05 14:13 | P.PN ---
Progress Note - Text Progress Note Date: 10/05/22 Advance care planning I spoke with the patient's son, [id number] for about 35 minutes over the telephone and briefly [id number] in regards to patient's significant decline in light of her conditions of cardiogenic and septic shock. Patient had significant increase in pressor requirement, maxing out one pressor and starting a second one with vasopressin. I expressed that this is a very poor prognosis for the patient especially in the context of having a very poorly functioning heart at baseline having significant coronary artery disease, having renal failure, shock liver. We went over computed tomography scan results of the abdomen/pelvis which demonstrated evidence of ischemic bowel. Given patient's overall decline in clinical condition, patient's family felt that patient's goals of care were most consistent with comfort measures. Therefore we switched started patient on morphine drip and asked the family to come in to be with the patient.
[2022-10-05 14:37] VITALS: RESP 29
--- NOTE | 2022-10-05 14:41 | P.PN ---
Subjective Progress Note Date: 10/05/22 Pt had an acute decline in clinical status today with worsening hypotension. CT A/P revealed ischemic bowel/pneumatosis. Pt is maxed on levophed and vasopressin. Gen: awake, alert HEENT: normocephalic, atraumatic, good hearing acuity, moist mucous membranes Resp: good air exchange, breathing comfortably with no accessory muscle use CVS: good distal perfusion x 4, GI: soft, NTTP, ND : no SPT, no CVAT, hamlin catheter not present MSK: no pitting edema, no clubbing Neuro: non-focal, moving all extremities Psych: cooperative, euthymic mood Hospital Course: 77-year-old female with past medical history of ICMP with LVEF <20% s/p ICD presented to the ED due to sudden episodes of ICD firing. In the emergency room, patient was afebrile, 124/86, heart rate 141, 98% on 2 L nasal cannula. CBC demonstrated mild leukocytosis 12.2. His metabolic panel is unremarkable. Magnesium was low at 1.1. Liver function test showed total bilirubin of 1.7, AST 55, ALT of 67, alkaline phosphatase at 233. Troponin was 0.0269 trended up 0.183 degenerative 0.255. BNP was 4920. TSH was 2.87. Coags showed INR 1.2. EKG demonstrated sinus tachycardia with occasional PVCs, left axis deviation. Chest x-ray shows cardiomegaly with left atrial enlargement, increased pulmonary vascularity with mild pleural effusion on the right and left consistent with heart failure exacerbation. Case was discussed with the emergency room physician and decision was made to with the patient inpatient status for evalu ation by cardiology for the same ventricular tachycardia requiring antitachycardia pacing and defibrillation by ICD. Pt had elevation of troponins and NSTEMI, therefore was started on an amiodarone and heparin gtt and taken to the Physical Chemist. Pt had complicated course in the Physical Chemist warranting brief period of CPR, Impella placement, pressor initiation with Levophed, dobutamine. She had further episodes of hypotension and the Impella was repositioned and patient was started on epinephrine drip as well. She did have some recovery briefly and was weaned off pressors, and had mechanical support removed. Unfortunately pt had an acute decline in clinical status om 10/05 with worsening hypotension. She was started on IVF boluses, levophed (maxed), and vasopressin. Repeat labs demonstrated worsening anemia, shock liver, and kidney function. CT A/P revealed ischemic bowel/pneumatosis. GoC discusswion was held with patient's family, and she was transitioned to comfort care. Assessment: Sustained ventricular tachycardia Elevated troponin Ischemic cardiomyopathy, Acute on chronic systolic heart failure, ejection fraction less than 20% CAD HTN HLD Plan: Today, patient is hypotensive with a tawanda of 64/34, requiring re-initiation of vasopressors. White blood cell count is 31.7, hemoglobin is 8.9 PH is 7.35, pCO2 is 27, pO2 is 156 Sodium is 132, chloride is 97, bicarb 16, gap is 19, BUN is 35, creatinine is 1.89 Patient has had 0 output of urine this morning Liver function tests demonstrate a elevated at 3.5, AST 1073, ALT of 212, alkaline phosphatase 157 LDH is 2241 See separate note regarding goals of care discussion I had with patient's family Patient will be switched to comfort care Morphine drip initiated Morphine when necessary IV Ativan when necessary Scopolamine patch Patient is comfort measures, DO NOT RESUSCITATE/DO NOT INTUBATE Objective - Vital Signs Vital signs: Vital Signs Temp 97.5 F L 10/05/22 08:00 Pulse 90 10/05/22 13:40 Resp 28 H 10/05/22 13:40 BP 103/51 10/05/22 13:40 Pulse Ox 97 10/05/22 13:40 FiO2 40 10/05/22 12:10 Intake & Output 10/04/22 10/05/22 10/05/22 18:59 06:59 18:59 Intake Total 1436.976 592.699 1521.287 Output Total 2080 655 105 Balance -643.024 000.403 7769.287 Weight 61.1 kg 60.6 kg Intake: IV 1508 097 3218 Lactated Ringers 1,000 ml 2000 @ 999 mls/hr IV .Q1H1M [facility] Rx#:[id number] Magnesium Sulfate-D5w Pmx 100 1 gm In Dextrose/Water 1 100ml.bag @ 100 mls/hr IVPB ONCE ONE Rx#: [id number] Piperacillin-Tazobactam 3 100 .375 gm In Sodium Chloride 0.9% 100 ml @ 25 mls/hr IVPB Q8H [facility] Rx#: [id number] Potassium Chloride 10 meq 600 In Water For Injection 1 100ml.bag @ 100 mls/hr IVPB Q1HR [facility] Rx#: [id number] Sodium Chloride 0.9% 500 400 480 240 ml 500 ml @ 20 mls/hr IV .Q24H [facility] Rx#:[id number] Vancomycin 1,000 mg In 250 Sodium Chloride 0.9% 250 ml @ 125 mls/hr IVPB ONCE ONE Rx#:[id number] ceFAZolin 1,000 mg In 100 100 Sodium Chloride 0.9% 50 ml @ 100 mls/hr IVPB Q6HR [facility] Rx#:[id number] Intake, IV Titration 206.976 923.385 4465.287 Amount Amiodarone 450 mg In 250 Dextrose 5% in Water 250 ml @ 0.5 MG/MIN 16.667 mls/hr IV .Q15H [facility] Rx#: [id number] Heparin Sod,Pork in 0.45% 40.621 NaCl 25,000 unit In 0.45 % NaCl 1 250ml.bag @ 12 UNITS/KG/HR 6.924 mls/hr IV .Q24H [facility] Rx#: [id number] Norepinephrine 32 mg In 0.152 Sodium Chloride 0.9% 218 ml @ 0.32 MCG/KG/MIN 9.09 mls/hr IV .Q24H [facility] Rx#: [id number] Norepinephrine 8 mg In 4.397 Sodium Chloride 0.9% 250 ml @ 0.03 MCG/KG/MIN 3. 518 mls/hr IV .Q24H [facility] Rx#:[id number] Potassium Chloride 10 meq 100 In Water For Injection 1 100ml.bag @ 100 mls/hr IVPB Q1HR [facility] Rx#: [id number] Sodium Bicarb (1 Meq/ml) 500 12.5 ml In Dextrose 5% in Water 500 ml @ Per Protocol IV DIRECTED [facility] Rx#:[id number] Vancomycin 1,000 mg In 250 Sodium Chloride 0.9% 250 ml @ 125 mls/hr IVPB ONCE ONE Rx#:[id number] propofoL 1,000 mg In 66.355 114.938 49.738 Empty Bag 1 bag @ 15 MCG/ KG/MIN 5.193 mls/hr IV . [id number] [facility] Rx#:[id number] Oral 20 Tube Feeding 10 160 Blood Product 310 Rc Irr As1 Unit 310 [id number] Other 120 60 30 Output: Urine 2080 655 105 Other: Voiding Method Indwelling Catheter Indwelling Catheter Indwelling Catheter ABP, PAP, CO, CI - Last Documented Arterial Blood Pressure 111/51 - Labs CBC & Chem 7: 10/05/22 09:45 10/05/22 05:13 Labs: Abnormal Lab Results - Last 24 Hours (Table) 10/04/22 10/04/22 10/05/22 Range/Units 18:01 18:23 00:06 WBC (3.8-10.6) k/uL RBC (3.80-5.40) m/uL Hgb (11.4-16.0) gm/dL Hct (34.0-46.0) % MCV (80.0-100.0) fL RDW (11.5-15.5) % Neutrophils # (Manual) (1.3-7.7) k/uL Monocytes # (Manual) (0-1.0) k/uL Nucleated RBCs (0-0) /100 WBC ABG pCO2 (35-45) mmHg ABG pO2 (83-108) mmHg ABG HCO3 (21-25) mmol/L ABG Total CO2 (19-24) mmol/L ABG O2 Saturation (94-97) % Sodium (137-145) mmol/L Potassium 3.4 L (3.5-5.1) mmol/L Chloride (98-107) mmol/L Carbon Dioxide (22-30) mmol/L BUN (7-17) mg/dL Creatinine (0.52-1.04) mg/dL Glucose (74-99) mg/dL POC Glucose (mg/dL) 155 H 144 H (70-110) mg/dL Plasma Lactic Acid Marek (0.7-2.0) mmol/L Calcium (8.4-10.2) mg/dL Total Bilirubin (0.2-1.3) mg/dL Conjugated Bilirubin (0.0-0.3) mg/dL Delta Bilirubin (0.0-0.2) mg/dL AST (14-36) U/L ALT (4-34) U/L Alkaline Phosphatase (38-126) U/L Lactate Dehydrogenase (120-246) U/L Total Protein (6.3-8.2) g/dL Albumin (3.5-5.0) g/dL Crossmatch 10/05/22 10/05/22 10/05/22 Range/Units 05:13 05:13 06:03 WBC 37.7 H (3.8-10.6) k/uL RBC 3.36 L (3.80-5.40) m/uL Hgb 10.4 L (11.4-16.0) gm/dL Hct 32.3 L (34.0-46.0) % MCV (80.0-100.0) fL RDW 15.7 H (11.5-15.5) % Neutrophils # (Manual) (1.3-7.7) k/uL Monocytes # (Manual) (0-1.0) k/uL Nucleated RBCs (0-0) /100 WBC ABG pCO2 27 L (35-45) mmHg ABG pO2 156 H (83-108) mmHg ABG HCO3 15 L (21-25) mmol/L ABG Total CO2 16 L (19-24) mmol/L ABG O2 Saturation 99.4 H (94-97) % Sodium 132 L (137-145) mmol/L Potassium (3.5-5.1) mmol/L Chloride 97 L (98-107) mmol/L Carbon Dioxide 16 L (22-30) mmol/L BUN 35 H (7-17) mg/dL Creatinine 1.89 H (0.52-1.04) mg/dL Glucose 118 H (74-99) mg/dL POC Glucose (mg/dL) (70-110) mg/dL Plasma Lactic Acid Marek (0.7-2.0) mmol/L Calcium 8.1 L (8.4-10.2) mg/dL Total Bilirubin (0.2-1.3) mg/dL Conjugated Bilirubin (0.0-0.3) mg/dL Delta Bilirubin (0.0-0.2) mg/dL AST (14-36) U/L ALT (4-34) U/L Alkaline Phosphatase (38-126) U/L Lactate Dehydrogenase (120-246) U/L Total Protein (6.3-8.2) g/dL Albumin (3.5-5.0) g/dL Crossmatch 05/12/2110/05/22 10/05/22 Range/Units 07:00 09:45 09:45 WBC 31.7 H (3.8-10.6) k/uL RBC 2.83 L (3.80-5.40) m/uL Hgb 8.9 L D (11.4-16.0) gm/dL Hct 28.4 L (34.0-46.0) % MCV 100.4 H (80.0-100.0) fL RDW (11.5-15.5) % Neutrophils # (Manual) 28.80 H (1.3-7.7) k/uL Monocytes # (Manual) 1.90 H (0-1.0) k/uL Nucleated RBCs 1 H (0-0) /100 WBC ABG pCO2 (35-45) mmHg ABG pO2 (83-108) mmHg ABG HCO3 (21-25) mmol/L ABG Total CO2 (19-24) mmol/L ABG O2 Saturation (94-97) % Sodium (137-145) mmol/L Potassium (3.5-5.1) mmol/L Chloride (98-107) mmol/L Carbon Dioxide (22-30) mmol/L BUN (7-17) mg/dL Creatinine (0.52-1.04) mg/dL Glucose (74-99) mg/dL POC Glucose (mg/dL) 181 H (70-110) mg/dL Plasma Lactic Acid Marek 15.4 H* (0.7-2.0) mmol/L Calcium (8.4-10.2) mg/dL Total Bilirubin (0.2-1.3) mg/dL Conjugated Bilirubin (0.0-0.3) mg/dL Delta Bilirubin (0.0-0.2) mg/dL AST (14-36) U/L ALT (4-34) U/L Alkaline Phosphatase (38-126) U/L Lactate Dehydrogenase (120-246) U/L Total Protein (6.3-8.2) g/dL Albumin (3.5-5.0) g/dL Crossmatch 10/05/22 10/05/22 10/05/22 Range/Units 09:45 10:30 12:59 WBC (3.8-10.6) k/uL RBC (3.80-5.40) m/uL Hgb (11.4-16.0) gm/dL Hct (34.0-46.0) % MCV (80.0-100.0) fL RDW (11.5-15.5) % Neutrophils # (Manual) (1.3-7.7) k/uL Monocytes # (Manual) (0-1.0) k/uL Nucleated RBCs (0-0) /100 WBC ABG pCO2 (35-45) mmHg ABG pO2 (83-108) mmHg ABG HCO3 (21-25) mmol/L ABG Total CO2 (19-24) mmol/L ABG O2 Saturation (94-97) % Sodium (137-145) mmol/L Potassium (3.5-5.1) mmol/L Chloride (98-107) mmol/L Carbon Dioxide (22-30) mmol/L BUN (7-17) mg/dL Creatinine (0.52-1.04) mg/dL Glucose (74-99) mg/dL POC Glucose (mg/dL) 127 H (70-110) mg/dL Plasma Lactic Acid Marek (0.7-2.0) mmol/L Calcium (8.4-10.2) mg/dL Total Bilirubin 3.5 H (0.2-1.3) mg/dL Conjugated Bilirubin 1.5 H (0.0-0.3) mg/dL Delta Bilirubin 1.4 H (0.0-0.2) mg/dL AST 1073 H (14-36) U/L ALT 212 H (4-34) U/L Alkaline Phosphatase 157 H (38-126) U/L Lactate Dehydrogenase 2241 H (120-246) U/L Total Protein 4.2 L (6.3-8.2) g/dL Albumin 2.1 L (3.5-5.0) g/dL Crossmatch See Detail Microbiology - Last 24 Hours (Table) 10/03/22 08:32 Gram Stain - Final Sputum Sputum Culture - Final
[2022-10-05 15:24] VITALS: BP 119/60; PULSE 88
--- NOTE | 2022-10-05 16:55 | P.DS ---
Providers Date of admission: 10/01/22 22:41 Expected date of discharge: 10/05/22 Attending physician: Lenora Snowden MD Consults: 10/01/22 22:41 Consult Physician Urgent Consulting Provider: Elliot Rashid Consult Reason/Comments: Defibrillator discharge, CHF exacerbation Do you want consulting provider notified?: Yes 10/02/22 14:45 Consult Physician Routine Consulting Provider: Trenton Pena Consult Reason/Comments: icu management Do you want consulting provider notified?: Yes 10/02/22 15:38 Consult Physician Routine Consulting Provider: Elliot Rashid Consult Reason/Comments: Post Interventional Patient Do you want consulting provider notified?: Already Contacted Primary care physician: Marcio [facility] Course: Assessment: Sustained ventricular tachycardia Elevated troponin Ischemic cardiomyopathy, Acute on chronic systolic heart failure, ejection fraction less than 20% CAD HTN HLD Hospital Course: 77-year-old female with past medical history of ICMP with LVEF <20% s/p ICD presented to the ED due to sudden episodes of ICD firing. In the emergency room, patient was afebrile, 124/86, heart rate 141, 98% on 2 L nasal cannula. CBC demonstrated mild leukocytosis 12.2. His metabolic panel is unremarkable. Magnesium was low at 1.1. Liver function test showed total bilirubin of 1.7, AST 55, ALT of 67, alkaline phosphatase at 233. Troponin was 0.0269 trended up 0.183 degenerative 0.255. BNP was 4920. TSH was 2.87. Coags showed INR 1.2. EKG demonstrated sinus tachycardia with occasional PVCs, left axis deviation. Chest x-ray shows cardiomegaly with left atrial enlargement, increased pulmonary vascularity with mild pleural effusion on the right and left consistent with heart failure exacerbation. Case was discussed with the emergency room physician and decision was made to with the patient inpatient status for evaluation by cardiology for the same ventricular tachycardia requiring antitachycardia pacing and defibrillation by ICD. Pt had elevation of troponins and NSTEMI, therefore was started on an amiodarone and heparin gtt and taken to the Provisioning Analyst. Pt had complicated course in the Provisioning Analyst warranting brief period of CPR, Impella placement, pressor initiation with Levophed, dobutamine. She had further episodes of hypotension and the Impella was repositioned and patient was started on epinephrine drip as well. She did have some recovery briefly and was weaned off pressors, and had mechanical support removed. Unfortunately pt had an acute decline in clinical status om 10/05 with worsening hypotension. She was started on IVF boluses, levophed (maxed), and vasopressin. Repeat labs demonstrated worsening anemia, shock liver, and kidney function. CT A/P revealed ischemic bowel/pneumatosis. GoC discusswion was held with patient's family, and she was transitioned to comfort care. Patient at 15:43 Patient Condition at Discharge: Good Plan - Discharge Summary Discharge Rx Participant: Yes New Discharge Prescriptions: No Action Omeprazole 40 mg PO DAILY Aspirin EC [Ecotrin Low Dose] 81 mg PO DAILY oxyCODONE HCL [oxyCODONE HCL (IR)] 10 mg PO Q6H PRN PRN Reason: Pain Spironolactone [Aldactone] 25 mg PO DAILY Losartan Potassium [Cozaar] 25 mg PO HS Mexiletine [Mexitil] 150 mg PO TID Atorvastatin [Lipitor] 80 mg PO HS allopurinoL [Zyloprim] 100 mg PO DAILY Metoprolol Succinate [Toprol XL] 100 mg PO DAILY 30 Days #30 tab Ergocalciferol (Vitamin D2) [Drisdol (50,000 Iu)] 1,250 mcg PO Q7D Furosemide [Lasix] 40 mg PO DAILY PRN PRN Reason: Edema Discharge Medication List Aspirin EC [Ecotrin Low Dose] 81 mg PO DAILY 03/23/21 [History] Atorvastatin [Lipitor] 80 mg PO HS 03/23/21 [History] Losartan Potassium [Cozaar] 25 mg PO HS 03/23/21 [History] Mexiletine [Mexitil] 150 mg PO TID 03/23/21 [History] Omeprazole 40 mg PO DAILY 03/23/21 [History] Spironolactone [Aldactone] 25 mg PO DAILY 03/23/21 [History] allopurinoL [Zyloprim] 100 mg PO DAILY 03/23/21 [History] oxyCODONE HCL [oxyCODONE HCL (IR)] 10 mg PO Q6H PRN 03/23/21 [History] Metoprolol Succinate [Toprol XL] 100 mg PO DAILY 30 Days #30 tab 03/25/21 [Rx] Ergocalciferol (Vitamin D2) [Drisdol (50,000 Iu)] 1,250 mcg PO Q7D 10/01/22 [History] Furosemide [Lasix] 40 mg PO DAILY PRN 10/01/22 [History] Follow up Appointment(s)/Referral(s): Marcio Howard MD [Primary Care Provider] - 1-2 days
[2022-10-06] MEDS ORDERED: ENOXAPARIN 30 MG/0.3 ML SYRINGE SQ SCH (09:00)
[2022-10-06] MEDS ORDERED: VANCOMYCIN 1,000 MG in SODIUM CHLORIDE 0.9% 250 ML IVPB ONE (09:00)
--- NOTE | 2022-10-07 17:40 | CDI ---
Documentation Clarification Form Date: 10/07/2022 5:30:17 PM From: Frances Queen Phone: Admit Date: 10/01/2022 10:41:00 PM Patient Name: Laney Chang Visit Number: [id number] Discharge Date: 10/05/2022 3:43:00 PM ATTENTION: The Clinical Documentation Specialists (CDI) and [facility] Coding Staff appreciate your assistance in clarifying documentation. Please respond to the clarification below the line at the bottom and electronically sign. The CDI & [facility] Coding staff will review the response and follow-up if needed. Please note: Queries are made part of the Legal Health Record. If you have any questions, please contact the author of this message via ITS. Dr. Shandra Juarez Unspecified anemia is documented Progress Note 10/05. Additional specificity regarding the type and acuity of anemia is requested. History/Risk Factors: 77yo F, SVT, NSTEMI, ICM, ACSHF, CAD, HTN, HLD, PEA, AICD, s/p Impella heart pump Clinical indicators: Hemoglobin: 10/01 12.9 10/02 11.2-14.9 10/04 10.2 10/05 8.9 Hematocrit: 10/01 40.2 10/02 35.1-48.3 10/04 31.2 10/05 28.4 Treatment: 1u PRBC 10/05 Please clarify the type and acuity of anemia: [x] Acute blood loss anemia [ ] Unable to determine [ ] Other, please specify (Template Last Revised: July 2020) MTDD
== END 2022-10-05 15:43 | disposition expired | DRG 215 ==
LOC: EC 20:14 → 3SCARD 22:41 → 2SICU 10-02 14:18
PROVIDERS: ADMIT Internal Medicine; ATTEND Internal Medicine
PROC: 4B02XTZ Measurement of Cardiac Defibrillator, External Approach (ICD-10-PCS; 2022-10-01)
PROC: 06HM33Z Insertion of Infusion Device into Right Femoral Vein, Percutaneous Approach (ICD-10-PCS; 2022-10-02)
PROC: 3E043XZ Introduction of Vasopressor into Central Vein, Percutaneous Approach (ICD-10-PCS; 2022-10-02)
PROC: 5A12012 Performance of Cardiac Output, Single, Manual (ICD-10-PCS; 2022-10-02)
PROC: 4A023N7 Measurement of Cardiac Sampling and Pressure, Left Heart, Percutaneous Approach (ICD-10-PCS; 2022-10-02)
PROC: B2111ZZ Fluoroscopy of Multiple Coronary Arteries using Low Osmolar Contrast (ICD-10-PCS; 2022-10-02)
PROC: 5A1945Z Respiratory Ventilation, 24-96 Consecutive Hours (ICD-10-PCS; 2022-10-02)
PROC: 0D9670Z Drainage of Stomach with Drainage Device, Via Natural or Artificial Opening (ICD-10-PCS; 2022-10-02)
PROC: 02HA3RZ Insertion of Short-term External Heart Assist System into Heart, Percutaneous Approach (ICD-10-PCS; principal; 2022-10-02 10:00)
PROC: 027034Z Dilation of Coronary Artery, One Artery with Drug-eluting Intraluminal Device, Percutaneous Approach (ICD-10-PCS; 2022-10-02 10:00)
PROC: 5A0221D Assistance with Cardiac Output using Impeller Pump, Continuous (ICD-10-PCS; 2022-10-02 10:00)
PROC: 02PA3RZ Removal of Short-term External Heart Assist System from Heart, Percutaneous Approach (ICD-10-PCS; 2022-10-04)
PROC: 30233N1 Transfusion of Nonautologous Red Blood Cells into Peripheral Vein, Percutaneous Approach (ICD-10-PCS; 2022-10-05)
PROC: 3E0G76Z Introduction of Nutritional Substance into Upper GI, Via Natural or Artificial Opening (ICD-10-PCS; 2022-10-05)
DX: I47.1 Supraventricular tachycardia (principal); K72.00 Acute and subacute hepatic failure without coma; I21.4 Non-ST elevation (NSTEMI) myocardial infarction; I50.23 Acute on chronic systolic (congestive) heart failure; A41.9 Sepsis, unspecified organism; R65.21 Severe sepsis with septic shock; K55.9 Vascular disorder of intestine, unspecified; N17.9 Acute kidney failure, unspecified; J96.11 Chronic respiratory failure with hypoxia; E87.20 Acidosis, unspecified; E87.1 Hypo-osmolality and hyponatremia; D62 Acute posthemorrhagic anemia; I97.710 Intraoperative cardiac arrest during cardiac surgery; Z51.5 Encounter for palliative care; Z66 Do not resuscitate; I11.0 Hypertensive heart disease with heart failure; I25.82 Chronic total occlusion of coronary artery; I08.3 Combined rheumatic disorders of mitral, aortic and tricuspid valves; S30.1XXA Contusion of abdominal wall, initial encounter; E83.42 Hypomagnesemia; E78.5 Hyperlipidemia, unspecified; I44.7 Left bundle-branch block, unspecified; I25.5 Ischemic cardiomyopathy; I25.10 Atherosclerotic heart disease of native coronary artery without angina pectoris; I49.3 Ventricular premature depolarization; K63.89 Other specified diseases of intestine; R31.9 Hematuria, unspecified; N15.9 Renal tubulo-interstitial disease, unspecified; K80.20 Calculus of gallbladder without cholecystitis without obstruction; Z99.81 Dependence on supplemental oxygen; Z95.810 Presence of automatic (implantable) cardiac defibrillator; I25.2 Old myocardial infarction; Z79.899 Other long term (current) drug therapy; Z79.82 Long term (current) use of aspirin; Z95.5 Presence of coronary angioplasty implant and graft
CPT/HCPCS: 33990; 33992; 36415; 36600; 71045; 74176; 80048; 80053; 80076; 82330; 82805; 83605; 83615; 83735; 83880; 84132; 84145; 84443; 84484; 85025; 85027; 85384; 85610; 85730; 86850; 86900; 86901; 86920; 87070; 87205; 93005; 93306; 93458; 94002; 94003; 94640; 96365; 96366; 96375; 99291